=== PATIENT | female | born 1950 | race Caucasian/White ===

== ENCOUNTER 2020-11-15 13:22 | Observation (INO) | payer OTHER ==
--- OUTSIDE RECORDS SUMMARY | 2020-11-15 13:46 | XMS REPORT | Continuity of Care Document ---
:1950 Author Organization [facility] t Address [address] [place] [address] Care Team Providers Name Role Phone UNKNOWN Primary Care Physician Unavailable Krunal BURGOS Attending Clinician VISIT, [facility] MAMMO Attending Clinician Unavailable ELVI Attending Clinician Unavailable Rio Love Attending Clinician SUSAN Attending Clinician Unavailable SUSAN Admitting Clinician Unavailable Problems Condition Condition Condition Status Onset Resolution Last Treating Co mments Source Name Details Category Date Date Treatment Clinician Date Chronic Problem Active 2020-05-03 Alok stiven constipati 02-27 23:48:53 l on Chronic 00:00: Oskar (disorder) constipati 00 on (disorder) Active 02/27/2014 Problem 05/03/2020 Data migrated from [employer] on 04/28/15. [facility] Gastroesop Problem Active 2020-05-03 M emoria hageal 02-27 23:48:53 l reflux 00:00: [place] disease Gastroesop 00 (disorder) hageal reflux disease (disorder) Active 02/27/2014 Problem 05/03/2020 Data migrated from [employer] on 04/28/15. 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 [facility] Fatigue Problem Active 2020-05-03 Alok stiven (finding) 02-23 23:48:53 l Fatigue 00:00: [place] (finding) 00 Active 02/23/2013 Problem 05/03/2020 Data migrated from [employer] on 04/28/15. [facility] Group Incontinen Problem Active 2020-05-03 M emoria ce 02-23 23:48:53 l (finding) 00:00: Oskar Incontinen 00 ce (finding) Active 02/23/2013 Problem 05/03/2020 Data migrated from [employer] on 04/28/15. [facility] Menopausal Problem Active 2020-05-03 M emoria syndrome 02-23 23:48:53 l (disorder) 00:00: Efrain n Menopausal 00 syndrome (disorder) Active 02/23/2013 Problem 05/03/2020 Data migrated from [employer] on 04/28/15. [facility] Migraine Problem Active 2020-05-03 Mem oria (disorder) 08-25 23:48:53 l Migraine 00:00: Efrain n (disorder) 00 Active 08/25/2012 Problem 05/03/2020 Data migrated from [employer] on 04/28/15. [facility] Neck pain Problem Active 2020-05-03 Me moria (finding) 08-25 23:48:53 l Neck 00:00: [place] pain 00 (finding) Active 08/25/2012 Problem 05/03/2020 Data migrated from [employer] on 04/28/15. [facility] Numbness Problem Active 2020-05-03 Mem oria of upper 08-25 23:48:53 l limb Numbness 00:00: Efrain n (finding) of upper 00 limb (finding) Active 08/25/2012 Problem 05/03/2020 Data migrated from [employer] on 04/28/15. 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 [place] [facility] Incontinen Incontinen Problem Active U nivers ce of ce of ity of urine in urine in [place] female female Physici ans Depression Depression Problem Active U nivers ity of [place] Physici ans Fatigue Fatigue Problem Active [facility] of [place] [facility]ici ans Obesity Problem Active 2020-05-03 Alok stiven (disorder) 23:48:53 l Obesity [place] (disorder) Active Problem 05/03/2020 Medical Group Atrophic Problem Active 2020-05-03 Mem oria vaginitis 23:48:53 l (disorder) Atrophic He rmann vaginitis (disorder) Active Problem 05/03/2020 Medical Group Vaginitis Problem Active 2019-02-12 Me moria (disorder) 21:05:30 l Oskar Vaginitis (disorder) Active Problem 02/12/2019 Medical Group Postmenopa Problem 2018-2019-03-09 2019-03-09 Memoria usal 03-07 21:23:05 21:23:05 l atrophic 20:37: Oskar vaginitis Postmenopa 00 usal atrophic vaginitis 03/07/2019 03/09/2019 Medical Group Dysplasia Problem 2018-2019-03-09 2019-03-09 Memoria of vagina, 03-07 21:23:05 21:23:05 l unspecifie 20:37: Efrain clifton d Dysplasia 00 of vagina, unspecifie d 03/07/2019 03/09/2019 Medical Group Menopausal Problem 2018-2019-03-09 2019-03-09 Memoria and female 03-07 21:23:05 21:23:05 l climacteri 20:37: Efrain clifton c states Menopausal 00 and female climacteri c states 9 03/09/2019 Medical Group Unspecifie Problem 2016-2017-11-05 2017-11-05 Memoria d 2-04 01:00:48 01:00:48 l menopausal 16:54: Efrain clifton and Unspecifie 00 perimenopa d usal menopausal disorder and perimenopa usal disorder 7 11/05/2017 Medical Group Allergies, Adverse Reactions, Alerts Allergy Allergy Status Severity Reaction(s) Onset Inactive Treating Comm ents Source Name Type Date Date Clinician morphine Allergy Active Univers to drug ity of (finding [place] ) Physici ans codeine< codeine< Active Memori a sup>1</s sup>1</s l up> up> Oskar Social History Social Habit Start Date Stop Date Quantity Comments Source Social History 2019-03-07 2019-03-07 Amira zuñiga 19:58:03 19:58:03 Smoking Status Start Date Stop Date Source Never smoked tobacco (finding) U [facility] Physicians Medications Ordered Filled Start Stop Current Ordering Indication Dosage Frequency Signature Comments Components Source Medication Medication Date Date Medication? Clinician (SIG) Name Name chlorphenir 2016-11 Yes Memori a amine 4 mg 2-04 l oral tablet 16:41: Efrain n 00 Esomeprazol 2016-11 Yes Daily Memor ia e 2-04 l 16:31: Oskar 00 isosorbide 2016-11 Yes 30 mg = 1 Me moria mononitrate 2-04 tab, PO, l 30 mg oral 16:31: Daily Efrain n tablet, 00 extended release metoprolol 2016-11 Yes 25 mg = 1 Me moria tartrate 25 2-04 tab, PO, l mg oral 16:31: BID [place] tablet 00 Aspirin 81 Aspirin 81 Yes M.A. Uni vers TBEC TBEC ity of [place] Physici ans Atorvastati Atorvastati Yes M.A. U nivers n Calcium n Calcium ity o f 20 MG Oral 20 MG Oral [place] as Tablet Tablet Physici ans Lisinopril- Lisinopril- Yes M.A. U nivers hydroCHLORO hydroCHLORO i ty of thiazide thiazide [place] 20-12.5 MG 20-12.5 MG Phy sici Oral Tablet Oral Tablet a ns Isosorbide Isosorbide Yes M.A. Uni vers Mononitrate Mononitrate i ty of ER 30 MG ER 30 MG [place] Oral Tablet Oral Tablet P hysici Extended Extended ans Release 24 Release 24 Hour Hour Metoprolol Metoprolol Yes M.A. Uni vers Tartrate 25 Tartrate 25 i ty of MG Oral MG Oral [place] Tablet Tablet Physici ans Vital Signs Vital Name Observation Time Observation Value Comments Source Systolic blood 2020-05-01 125 mm[Hg] Location: [facility] 15:01:00 Position: [place] Physician s Sitting Diastolic blood 2020-05-01 81 mm[Hg] Location: [facility] 15:01:00 Position: [place] Physician s Sitting Body height 2020-05-01 64 [in_us] [facility] 15:01:00 [place] Physician s Weight 2020-05-01 200 [lb_av] [facility] 15:01:00 [place] Physician s Body mass index 2020-05-01 34.33 kg/m2 [place] o f (BMI) [Ratio] 15:01:00 [place] Physicia ns Body temperature 2020-05-01 98 [degF] Method: [facility] 15:01:00 Temporal [place] Physician s Heart Rate 2020-05-01 69 /min [facility] 15:01:00 [place] Physician s BMI Calculated 2019-03-07 [facility] 19:57:00 Weight 2019-03-07 [facility] 19:57:00 Height 2019-03-07 162.56 cm [facility] n 19:57:00 Systolic (mm Hg) 2019-03-07 [facility] He rmann 19:57:00 Diastolic (mm Hg) 2019-03-07 [facility] H [place] 19:57:00 Heart Rate 2019-03-07 [facility] [facility] 19:57:00 Height 2017-11-02 162.56 cm [facility] 16:21:00 BMI Calculated 2017-11-02 [facility] 16:21:00 Weight 2017-11-02 [facility] 16:21:00 Heart Rate 2017-11-02 [facility] [facility] 16:21:00 Systolic (mm Hg) 2017-11-02 [facility] [place] 16:21:00 Diastolic (mm Hg) 2017-11-02 [facility] H ermann 16:21:00 Procedures Procedure Date / Time Performing Clinician Source Performed [Q] THINPREP TIS AND 2020-05-01 00:00:00 [facility] HPV mRNA E6/E7 Physicians Mammogram 2019-03-07 05:00:00 [facility] Her [place] Colonoscopy 2014-08-24 05:00:00 [facility] genie [facility] Physicians [facility] - [facility] Hyste[facility] Knee joint operation [facility] rmann Encounters Start End Encounter Admission Attending Care Care Encounter Source Date/Time Date/Time Type Type Clinicians Facility Department ID 2020-10-10 2020-10-10 Office Krunal, [facility] [id number] 13:17:03 14:05:41 [place] [id number] [place] [id number] [place] [id number] Medical [address] Office Building 2020-05-01 2020-05-01 Outpatient VISIT, [facility] [id number] 14:00:00 23:59:59 NURSE STWC 12 MAMMO 2020-05-01 2020-05-01 Outpatient VISIT, [facility] [id number] 14:30:00 14:30:00 NURSE STWC 11 MAMMO 2020-05-01 2020-05-01 Appointmen ELVI, [facility] [id number] 13:45:00 13:45:00 t; Amber YODER [facility] y of ELVI, [place] as Kiran YODER. [facility] 2020-03-12 2020-03-12 Outpatient Sangalli, [facility] [id number] 15:00:00 15:00:00 Cristian Pate 10 2020-03-12 2020-03-12 Outpatient VISIT, [facility] [id number] 14:30:00 14:30:00 NURSE STWC 09 MAMMO 2019-03-08 2019-03-09 Outpatient [facility] [id number] 18:23:36 18:23:36 04 2019-03-07 2019-03-07 Outpatient VISIT, [facility] [id number] 15:30:00 23:59:59 NURSE STWC 05 MAMMO 2019-03-07 2019-03-07 Outpatient Sangalli, [facility] [id number] 14:30:00 23:59:59 Cristian Pate 2019-02-10 2019-02-10 Outpatient Sangalli, [facility] [id number] 09:00:00 09:00:00 Cristian Pate 2018-11-08 2018-11-08 Outpatient Sangalli, [facility] [id number] 10:00:00 10:00:00 Cristian Pate 2018-01-04 2018-01-04 Outpatient Sangalli, [facility] [id number] 09:45:00 09:45:00 Cristian Pate 2017-11-02 2017-11-02 Outpatient Sangalli, [facility] [id number] 10:00:00 23:59:59 Cristian Pate 03 2017-11-02 2017-11-02 Outpatient VISIT, [facility] [id number] 09:30:00 23:59:59 NURSE KAREN 02 MAMMO 2017-10-28 2017-10-28 Outpatient Kali SUSAN, [facility] [id number] [facility] 14:55:00 14:55:00 TISHA Results Test Description Test Time Test Comments Results Result Comments Source [QL] URINALYSIS, COMPLETE W/REFLEX TO CULTURE 2020-05-01 00: 00:00 Test Item Value Reference Range Interpretation Comme nts COLOR; Normal (test code = 5778-6) YELLOW YELLOW N APPEARANCE (test code = APPEARANCE) CLEAR CLEAR N SPECIFIC GRAVITY; Normal (test code = 2965-2) 1.008 1.001-1. 035 N PH; Normal (test code = 2756-5) 5.5 5.0-8.0 N GLUCOSE; Normal (test code = 1547-9) NEGATIVE NEGATIVE N BILIRUBIN; Normal (test code = 02426-4) NEGATIVE NEGATIVE N KETONES; Normal (test code = 82077-4) NEGATIVE NEGATIVE N OCCULT BLOOD; Abnormal (test code = 86612-4) TRACE NEGATIVE A PROTEIN; Normal (test code = 60970-8) NEGATIVE NEGATIVE N NITRITE (test code = NITRITE) NEGATIVE NEGATIVE N LEUKOCYTE ESTERASE (test code = LEUKOCYTE NEGATIVE NEGATIVE N ESTERASE) WBC; Normal (test code = 6690-2) NONE SEEN < OR = 5 N RBC; Normal (test code = 789-8) NONE SEEN < OR = 2 N SQUAMOUS EPITHELIAL CELLS; Normal (test code = NONE SEEN < OR = 5 N 41161-9) BACTERIA; Normal (test code = 630-4) NONE SEEN NONE SEEN N HYALINE CAST; Normal (test code = 27785-3) NONE SEEN NONE SEEN N REFLEXIVE URINE CULTURE (test code = REFLEXIVE NO CULTURE INDICATED URINE CULTURE) [facility] Physicians[Q] THINPREP TIS AND HPV mRNA [id number] 00:00:00 Test Item Value Reference Range Interpretation Comments CLINICAL See Comment N PREVIOUS HX OF ABN PAP INFORMATION: (test code = CLINICAL INFORMATION:) LMP: (test code = See Comment N NGF LMP:) PREV. PAP: (test See Comment N NONE GIVEN code = PREV. PAP:) PREV. BX: (test See Comment N NONE GIVEN code = PREV. BX:) SOURCE: (test See Comment N VAGINAL code = SOURCE:) STATEMENT OF See Comment N SATISFACTORY FO R ADEQUACY: (test EVALUATION code = STATEMENT OF ADEQUACY:) INTERPRETATION/RE See Comment N Negative f or SULT:; Normal intraepithelia l lesion (test code = or malignancy. 48556-8) COMMENT:; Normal See Comment N This Pap te st has been (test code = [place] [address]-9) [email or web address]. NEWS PRODUCER: See Comment N ABS, CT( CP)CT (test code = screening locat ion: NEWS PRODUCER: [facility] [id number] [place], [place] [id number] REVIEW See Comment N PAUL, CT(ASCP)CT NEWS PRODUCER: screening location: (test code = [facility] [address] [place], [place] [id number] NEWS PRODUCER: ) HPV mRNA E6/E7 Not Detected Not Detected N This test was performed (test code = HPV using the A PTIMA HPV mRNA E6/E7) Assay (vBrand.). This assay dete cts E6/E7 viral messenger RNA (mRNA) from 14h igh-risk HPV types (16,18,31,33,35 ,39,45,51 ,52,56,58,59,66 ,68). The analytical perf ormance characteristics ofthis assay have been determined by [facility] s. The modifications h ave not beencleared or approved by the FDA. Thi s assay hasbeen validat ed pursuant to the CLIA regulationsand is used for clinical pu rposes. See Comment (test See Comment EXPLANATOR Y NOTE: The code = See Pap is a screen ing test Comment) for cervical ca ncer. It is not a diagno stic test and is subject to false negative and fa lse positive result s. It is most reliable w hen a satisfactory sa mple, regularly obtai caryl, is submitted with relevant clinical findin gs and history, and wh en the Pap result is e valuated along with hist oric and current clinica l information. [facility] PhysiciansProthrombin Time and [id number] 09:16:02 Test Item Value Reference Range Interpretation Comments Prothrombin Time (test code = 12.0 seconds 9.8-13.4 Prothrombin Time) INR (test code = INR) 1.0 ratio 0.6-1.2 Partial Thromboplastin [id number] 09:16:02 Test Item Value Reference Range Interpretation Comments Partial Thromboplastin Time 31.20 seconds 24.39-37.25 (test code = Partial Thromboplastin Time) Comprehensive Metabolic [id number] 09:12:33 Test Item Value Reference Range Interpretation Comments Sodium Level (test code = Sodium 140.0 mmol/L 135.0-145.0 Level) Potassium Level (test code = 3.9 mmol/L 3.5-5.1 Potassium Level) Chloride Level (test code = 103 mmol/L 98-105 Chloride Level) CO2 (test code = CO2) 26 mmol/L 22-29 Anion Gap (test code = Anion 11 mmol/L 7-16 Gap) BUN (test code = BUN) 17.90 mg/dL 8.00-23.00 Creatinine Level (test code = 0.80 mg/dL 0.50-0.90 Creatinine Level) BUN/Creat Ratio (test code = 22 N BUN/Creat Ratio) Glucose Level (test code = 114 mg/dL 70-115 Glucose Level) Calcium Level (test code = 9.4 mg/dL 8.3-10.5 Calcium Level) Alk Phos (test code = Alk Phos) 75 U/L 35-104 Bilirubin Total (test code = 0.9 mg/dL 0.1-0.9 Bilirubin Total) Albumin Level (test code = 4.2 g/dL 3.5-5.2 Albumin Level) Protein Total (test code = 6.9 g/dL 6.4-8.3 Protein Total) ALT (test code = ALT) 17 U/L 1-33 AST (test code = AST) 15 U/L 1-32 Globulin (test code = Globulin) 2.7 g/dL 2.9-3.1 L A/G Ratio (test code = A/G 1.6 ratio N Ratio) Comprehensive Metabolic [id number] 09:12:33 Test Item Value Reference Range Interpretation Comments Sodium Level (test 140.0 mmol/L 135.0-145.0 code = Sodium Level) Potassium Level 3.9 mmol/L 3.5-5.1 (test code = Potassium Level) Chloride Level (test 103 mmol/L 98-105 code = Chloride Level) CO2 (test code = 26 mmol/L 22-29 CO2) Anion Gap (test code 11 mmol/L 7-16 = Anion Gap) BUN (test code = 17.90 mg/dL 8.00-23.00 BUN) Creatinine Level 0.80 mg/dL 0.50-0.90 (test code = Creatinine Level) BUN/Creat Ratio 22 N (test code = BUN/Creat Ratio) Glucose Level (test 114 mg/dL 70-115 code = Glucose Level) Calcium Level (test 9.4 mg/dL 8.3-10.5 code = Calcium Level) Alk Phos (test code 75 U/L 35-104 = Alk Phos) Bilirubin Total 0.9 mg/dL 0.1-0.9 (test code = Bilirubin Total) Albumin Level (test 4.2 g/dL 3.5-5.2 code = Albumin Level) Protein Total (test 6.9 g/dL 6.4-8.3 code = Protein Total) ALT (test code = 17 U/L 1-33 ALT) AST (test code = 15 U/L 1-32 AST) Globulin (test code 2.7 g/dL 2.9-3.1 L = Globulin) A/G Ratio (test code 1.6 ratio N = A/G Ratio) eGFR AA (test code = >60 N eGFR (e stimated eGFR AA) mL/min/1.73 m2 Glomerular Filtration Rate ) is an estimated va lue, calculated from the patient's serum creatinine usin g the MDRD equation. It is NOT the patient 's actual GFR. The eGFR provides a more clinically usef ul measure of kidn ey disease than se rum creatinine alone.This calculation mk es sex and race in to account, if the information is provided. If th e race is not provided, and t he patient is -Danielle n, multiply by 1.2 12. If sex is not provided, and t he patient is fema le, multiply by 0.7 42. Results for pat ients <18 years of ag e have not been validated by th e MDRD study and should be interpreted wit h caution. eGFR R esult Interpretation: eGFR > or = 60 is in the Normal RangeeGF R < 60 may mean kid derek diseaseeGFR < 1 5 may mean kidney failure Rang es recommended by the National Kidney Foundation, http://nkdep.ni h.gov Comprehensive Metabolic [id number] 09:12:33 Test Item Value Reference Range Interpretation Comments Sodium Level (test 140.0 mmol/L 135.0-145.0 code = Sodium Level) Potassium Level 3.9 mmol/L 3.5-5.1 (test code = Potassium Level) Chloride Level (test 103 mmol/L 98-105 code = Chloride Level) CO2 (test code = 26 mmol/L 22-29 CO2) Anion Gap (test code 11 mmol/L 7-16 = Anion Gap) BUN (test code = 17.90 mg/dL 8.00-23.00 BUN) Creatinine Level 0.80 mg/dL 0.50-0.90 (test code = Creatinine Level) BUN/Creat Ratio 22 N (test code = BUN/Creat Ratio) Glucose Level (test 114 mg/dL 70-115 code = Glucose Level) Calcium Level (test 9.4 mg/dL 8.3-10.5 code = Calcium Level) Alk Phos (test code 75 U/L 35-104 = Alk Phos) Bilirubin Total 0.9 mg/dL 0.1-0.9 (test code = Bilirubin Total) Albumin Level (test 4.2 g/dL 3.5-5.2 code = Albumin Level) Protein Total (test 6.9 g/dL 6.4-8.3 code = Protein Total) ALT (test code = 17 U/L 1-33 ALT) AST (test code = 15 U/L 1-32 AST) Globulin (test code 2.7 g/dL 2.9-3.1 L = Globulin) A/G Ratio (test code 1.6 ratio N = A/G Ratio) eGFR AA (test code = >60 N eGFR (e stimated eGFR AA) mL/min/1.73 m2 Glomerular Filtration Rate ) is an estimated va lue, calculated from the patient's serum creatinine usin g the MDRD equation. It is NOT the patient 's actual GFR. The eGFR provides a more clinically usef ul measure of kidn ey disease than se rum creatinine alone.This calculation mk es sex and race in to account, if the information is provided. If th e race is not provided, and t he patient is -Danielle n, multiply by 1.2 12. If sex is not provided, and t he patient is fema le, multiply by 0.7 42. Results for pat ients <18 years of ag e have not been validated by [facility] MDRD study and should be interpreted wit h caution. eGFR R esult Interpretation: eGFR > or = 60 is in the Normal RangeeGF R < 60 may mean kid derek diseaseeGFR < 1 5 may mean kidney failure Rang es recommended by the National Kidney Foundation, http://nkdep.ni h.gov eGFR Non-AA (test >60.00 N eGFR (jackie mated code = eGFR Non-AA) mL/min/1.73 m2 Glomer ular Filtration Rate ) is an estimated va lue, calculated from the patient's serum creatinine usin g the MDRD equation. It is NOT the patient 's actual GFR. The eGFR provides a more clinically usef ul measure of kidn ey disease than se rum creatinine alone.This calculation mk es sex and race in to account, if the information is provided. If th e race is not provided, and t he patient is -Danielle n, multiply by 1.2 12. If sex is not provided, and t he patient is fema le, multiply by 0.7 42. Results for pat ients <18 years of ag e have not been validated by [facility] MDRD study and should be interpreted wit h caution. eGFR R esult Interpretation: eGFR > or = 60 is in the Normal RangeeGF R < 60 may mean kid derek diseaseeGFR < 1 5 may mean kidney failure Rang es recommended by the National Kidney Foundation, http://nkdep.ni h.gov Complete Blood Count with [id number] 09:09:24 Test Item Value Reference Range Interpretation Comments WBC (test code = WBC) 6.6 x10 4.4-10.5 RBC (test code = RBC) 4.59 x10 3.75-5.20 Hgb (test code = Hgb) 13.6 g/dL 12.2-14.8 Hct (test code = Hct) 40.5 % 36.5-44.4 MCV (test code = MCV) 88.20 fL 80.00-100.00 MCHC (test code = 33.60 g/dL 32.00-37.50 MCHC) RDW CV (test code = 12.5 % 11.5-14.5 RDW CV) MCH (test code = MCH) 29.6 pg 27.0-32.5 Platelets (test code = 175.0 x10 140.0-440.0 Platelets) MPV (test code = MPV) 11.2 fL N Slide Review (test Auto Auto Result cr eated by code = Slide Review) GL_SJM_ SLIDE_REV_AUTO nRBC (test code = 0 N nRBC) NRBC Abs (test code = 0.00 x10 N NRBC Abs) IPF (test code = IPF) 0 % N Automated [id number] 09:09:24 Test Item Value Reference Range Interpretation Comments Neutro Auto (test code = Neutro 64.1 % 36.0-70.0 Auto) Lymph Auto (test code = Lymph Auto) 22.0 % 12.0-44.0 [place] Auto (test code = [place] Auto) 12.1 % 0.0-11.0 H Eos, Auto (test code = Eos, Auto) 1.1 % 0.0-7.0 Basophil Auto (test code = Basophil 0.5 % 0.0-2.0 Auto) Neutro Absolute (test code = Neutro 4.2 x10 1.6-7.4 Absolute) Lymph Absolute (test code = Lymph 1.44 x10 .50-4.60 Absolute) [place] Absolute (test code = [place] .79 x10 .00-1.20 Absolute) Eos Absolute (test code = Eos 0.07 x10 0.00-0.74 Absolute) Baso Absolute (test code = Baso 0.03 x10 0.00-0.21 Absolute) IG [id number] 09:09:24 Test Item Value Reference Range Interpretation Comments IG (test code = IG) 0.2 % 0.0-5.0 IG Abs (test code = IG Abs) 0 x10 N Thyroxine (T4)2017-10-29 23:18:00 Test Item Value Reference Range Interpretation Comments T4, Total (test code = TT4) 8.8 ug/dL 4.6-12.0 N
--- OUTSIDE RECORDS SUMMARY | 2020-11-15 13:46 | XMS REPORT | Summary of Care ---
:1950 Author Organization [address] [address] Care Team Providers Name Role Phone Eder Coyle MD Primary Care Provider [phone] Reason for Visit Reason Comments Follow-up (Routine) Status Reason Specialty Diagnoses / Procedures Referred By C earnest Referred To Contact Closed Urology Diagnoses Recurrent UTI Sayra Nguyen, PLATINUM AND PALLADIUM KETTLE TENDER Esperanza Hector MD Procedures CONSULT/REFERRAL UROLOGY [address] [facility] [address] [place], [place] [address] [address] Phone: [place] [address] Phone: Fax: Encounter Details Date Type Department Care Team Description 08/30/2020 Office Visit [facility] Urology- Cha Ortega MD Recurrent UTI (Primary Dx); [address] Urinary incontinence, unspecified type; [facility] [place] Urinary [address] [address] [facility] [address] [place] [address] Allergies Active Allergy Reactions Severity Noted Date Comments Codeine Unknown - See comments 06/03/2016 Meperidine Hcl Unknown - See comments 06/03/2016 documented as of this encounter (statuses as of 08/30/2020) Medications Medication Sig Dispensed Refills Start Date End Date Status atorvastatin (LIPITOR) Take 20 mg by 0 Active 20 mg tablet mouth at bedtime. lisinopril-hydrochloro Take 1 tablet by 0 Active thiazide mouth daily. (PRINZIDE,ZESTORETIC) 20-12.5 mg per tablet esomeprazole magnesium Take by mouth. 0 Active (NEXIUM 24HR) 22.3 mg CpDR aspirin 81 mg EC Take 325 mg by 0 Active tablet mouth daily. metoprolol tartrate 25 Take 25 mg by 0 Active mg tablet mouth 2 (two) times daily. isosorbide mononitrate Take 30 mg by 0 Active 30 mg 24 hr tablet mouth. fluticasone (FLONASE Use in each 0 Active ALLERGY RELIEF) 50 nostril daily. mcg/actuation nasal spray conjugated estrogens Insert 0.5 g into 30 g 2 10/05/2019 Active 0.625 mg/gram vaginal vagina creamIndications: SEE-INSTRUCTIONS. Recurrent UTI Place small amount to vaginal opening 2 x week Nitrofurantoin&Nit. Take 1 capsule by 10 capsule 0 08/01/2020 Active Macrocryst (MACROBID) mouth 2 (two) 100 mg times daily with capsuleIndications: meals. Recurrent UTI documented as of this encounter (statuses as of 08/30/2020) Active Problems No known active problemsdocumented as of this encounter (statuses as of 08/30/2020) Immunizations Name Administration Dates Next Due Influenza High Dose 12/23/2019, 07/31/2018 Pneumococcal 13 Conjugate, PCV13 (Prevnar 13) 10/12/2017 TDAP 03/01/2018 Zoster Vaccine Recombinant 07/31/2018 Zoster(Zostavax)(Shingles) 03/01/2018 documented as of this encounter Social History Tobacco Use Types Packs/Day Years Used Date Never Smoker Smokeless Tobacco: Never Used Alcohol Use Drinks/Week oz/Week Comments No 0 Standard drinks or equivalent 0.0 Sex Assigned at Date Recorded Not on file COVID-19 Exposure Response Date Recorded In the last month, have you been in contact with No / Unsure 08/29/2020 12:48 PM CDT someone who was confirmed or suspected to have Coronavirus / COVID-19? documented as of this encounter Last Filed Vital Signs Vital Sign Reading Time Taken Comments Blood Pressure 146/84 08/30/2020 2:13 PM CDT Pulse 84 08/30/2020 2:13 PM CDT Temperature 36.8 C (98.3 F) 08/30/2020 2:08 PM CDT Respiratory Rate 20 08/30/2020 2:08 PM CDT Oxygen Saturation 98% 08/30/2020 2:08 PM CDT Inhaled Oxygen Concentration - - Weight 86.6 kg (191 lb) 08/30/2020 2:08 PM CDT Height 172.7 cm (5' 8") 08/30/2020 2:08 PM CDT Body Mass Index 29.04 08/30/2020 2:08 PM CDT documented in this encounter Progress Notes Sayra Nguyen FNP - 08/30/2020 2:00 PM CDT Visit Type: Clinic Note / History and Physical Referred by: established Chief Complaint: follow up for UTI HPI Sera Min 70 year old female for follow up of UTI. Last UTI was 07/30/2020 culture returned as contaminated but was having burning and general malaise. Given Macrobid x 5 days. She usually has a UTIevery 1-2 months. She completed 8 weeks of Macrobid for suppression and did not have UTI for 6 months. Today is asymptomatic and feels well. She is taking cranberry pills. Only complaint today is urinary incontinence and urgency. Histories Past Medical History: Diagnosis Date Esophageal reflux Hyperlipidemia Hypertension Seizures Past Surgical History: Procedure Laterality Date ESOPHAGOGASTRODUODENOSCOPY N/A 11/18/2017 Surgeon: Vashti Ibrahim MD; [place] [facility] [place] INSERT/PLACE HEART CATHETER 2016 HYSTERECTOMY full KNEE ARTHROSCOPY Bilateral 1996, 2002 [place] PATIENT HAS A CORONARY ARTERY STENT 08/29/2016 Family History Problem Relation Age of Onset Heart Mother Coronary Heart Disease Mother Coronary Heart Disease Father Social History Socioeconomic History Marital status: Single Spouse name: Not on file Number of children: Not on file Years of education: Not on file Highest education level: Not on file Occupational History Not on file Social Needs Financial resource strain: Not on file Food insecurity Worry: Not on file Inability: Not on file Transportation needs Medical: Not on file Non-medical: Not on file Tobacco Use Smoking status: Never Smoker Smokeless tobacco: Never Used Substance and Sexual Activity Alcohol use: No Alcohol/week: 0.0 standard drinks Drug use: No Sexual activity: Not on file Lifestyle Physical activity Days per week: Not on file Minutes per session: Not on file Stress: Not on file Relationships Social connections Talks on phone: Not on file Gets together: Not on file Attends caodaism service: Not on file Active member of club or organization: Not on file Attends meetings of clubs or organizations: Not on file Relationship status: Not on file Intimate partner violence Fear of current or ex partner: Not on file Emotionally abused: Not on file Physically abused: Not on file Forced sexual activity: Not on file Other Topics Concern Not on file Social History Narrative Not on file Review of Systems Constitutional: Positive for fatigue and unexpected weight change. Respiratory: Negative. Cardiovascular: Positive for leg swelling. Genitourinary: Positive for bladder incontinence, urgency and frequency. Musculoskeletal: Positive for arthralgias, gait problem and neck pain. Psychiatric/Behavioral: Negative. Physical Exam Constitutional: Appearance: Normal appearance. She is normal weight. Musculoskeletal: Normal range of motion. Skin: General: Skin is warm and dry. Neurological: General: No focal deficit present. Mental Status: She is alert and oriented to person, place, and time. Mental status is at baseline. Psychiatric: Mood and Affect: Mood normal. Behavior: Behavior normal. Thought Content: Thought content normal. Judgment: Judgment normal. BP (!) 146/84 (BP Location: Left arm, Patient Position: Sitting, BP CUFF SIZE: Adult Large) | Pulse84 | Temp 36.8 C (98.3 F) (Temporal Artery) | Resp 20 | Ht 5' 8" (1.727 m) | Wt 191 lb (86.6kg) | SpO2 98% | BMI 29.04 kg/m Laboratory Results for SERA MIN ( ) as of 08/30/2020 14:34 Ref. Range 08/30/2020 14:14 POCT PH U Latest Ref Range: 5 - 8 mg/dl 5.5 POCT U SP GRAV Latest Ref Range: 1.005 - 1.025 mg/dl 1.010 POCT U GLU Latest Ref Range: Negative - Negative Negative POCT U BLD Latest Ref Range: Negative - Negative Trace POCT U KETONE Latest Ref Range: Negative - Negative Negative POCT U PROT Latest Ref Range: Negative - Negative Negative POCT U UROBILI Latest Ref Range: 0.2 - 1 mg/dl 0.2 POCT U BILI Latest Ref Range: Negative - Negative Negtaive POCT U NIT Latest Ref Range: Negative - Negative Negative POCT U LEUK EST Latest Ref Range: Negative - Negative Negative POCT U COLOR Unknown yellow POCT U APPEAR Unknown clear Radiology No new Radiology Procedure Note PVR = 11 ml Assessment/Plan Sera Min 70 year old female with recurrent UTI and urinary incontinence and urgency. Continue cranberry pills Urine culture - will call for orders Refer to Dr. Hector RTC PRN Surgical Intervention Not applicable. This visit did not involve counseling and coordination that comprised more than 50% of the visit time. The patient was seen and discussed with Dr. Ortega. Sayra Nguyen NP-C Dyana Ying RN - 08/30/2020 2:00 PM CDTBarvind Min is a 70 year old female comes to clinic independent in ambulation for follow up recurrent uti. Pt comes alone . Pt in NAD w/ pain reported 0/10. Pt preferred language is Icelandic. Pt. denies fall in last 12 months. Allergies and medications reviewed and updated. Per order Post void residual by bladder scan = 11 ml, results reported to provider. documented in this encounter Plan of Treatment Date Type Specialty Care Team Description 09/06/2020 Office Visit Urology Esperanza Hector M D [address] [facility] [address] [place], [place] [address] 11/07/2020 Office Visit Urology Sayra Nguyen FNP [address] [facility] [address] [place], [place] [address] [phone] Health Maintenance Due Date Last Done Comments HEPATITIS C (HCV) SCREEN 1950 COLON CANCER SCREENING ANNUAL FIT/FOBT 2001 COLON CANCER SCREENING FIT DNA EVERY 3 2001 YEARS COLON CANCER SCREENING SIGMOIDOSCOPY EVERY 2001 5 YEARS Medicare Wellness Visit 2016 Zoster Recombinant Vaccine (SHINGRIX) (3 09/25/201807/31/2 018, 03/01/2018 of 3) PNEUMOCOCCAL VACCINES 65+ (2 of 2 - 10/12/2018 10/12/2017 PPSV23) Breast Cancer Screening (MAMMOGRAM) 02/29/2020 02/28/2019 INFLUENZA VACCINE (#1) 2020 12/23/2019, 07/31/2018 Depression Screening 08/30/2021 08/30/2020 Osteoporosis Screening 11/30/2022 11/30/2012 COLONOSCOPY 08/24/2024 08/24/2014 Colorectal Cancer Screening 08/24/2024 DTaP,Tdap,and Td Vaccines (2 - Td) 03/01/2028 03/01/2018 documented as of this encounter Procedures Procedure Name Priority Date/Time Associated Comments Diagnosis POCT URINALYSIS AUTO Routine 08/30/2020 2:14 PM Recurrent UTI Results for this CDT procedure are i n the results section. documented in this encounter Results POCT URINALYSIS, INSTRUMENT (08/30/2020 2:14 PM CDT) Pathologist Sig nature POCT U SP GRAV 1.010 1.005 - 1.025 mg/dl POCT PH U 5.5 5 - 8 mg/dl POCT U LEUK EST Negative Negative - Negative POCT U NIT Negative Negative - Negative POCT U PROT Negative Negative - Negative POCT U GLU Negative Negative - Negative POCT U KETONE Negative Negative - Negative POCT U UROBILI 0.2 0.2 - 1 mg/dl POCT U BILI Negtaive Negative - Negative POCT U BLD Trace Negative - Negative POCT U COLOR yellow POCT U APPEAR clear Specimen Urine - URINE, CLEAN CATCH documented in this encounter Visit Diagnoses Diagnosis Recurrent UTI - Primary Urinary tract infection, site not specif ied Urinary incontinence, unspecified type Urinary urgency Urgency of urination documented in this encounter Additional Health Concerns Infection Onset Date Last Indicated Resolved Time Contact - ESBL 07/29/2019 07/29/2019 documented as of this encounter Insurance Payer Benefit Plan / Subscriber ID Effective Phone Address T ype Group Dates MEDICARE MEDICARE PART [id number] 2016-Prese [phone] Medicare A & B nt [id number] [place] [phone] MULTIPLAN MULTIPLAN [id number] 2016-Prese PPO GENERIC nt [facility] [id number] 2016-Flynn Smith PO PLAN PLAN nt [phone] (Home) [phone] [place] [address] documented as of this encounter
--- OUTSIDE RECORDS SUMMARY | 2020-11-15 13:46 | XMS REPORT | Continuity of Care Document ---
:1950 Author Organization [facility] Care Team Providers Name Role Phone [facility] Unavailable Un available Problems Problem Status Onset Classification Date Comments Sourc e Date Reported Unspecified urinary 03/07/20 03/09/2019 incontinence [facility] Other fatigue 03/07/20 03/09/2019 MH [facility] Postmenopausal 03/07/20 03/09/2019 MH atrophic vaginitis 19 M edical Group Dysplasia of 03/07/20 03/09/2019 MH vagina, unspecified 19 [facility] Menopausal and 03/07/20 03/09/2019 female climacteric 19 M edical states Group Unspecified 11/02/20 11/05/2017 MH menopausal and 17 Medic al perimenopausal Group disorder Chronic Active 02/28/20 Problem 05/03/2020 Data constipation 14 migrated Medical (disorder) from [facility] [employer] on 04/28/15. Gastroesophageal Active 02/28/20 Problem 05/03/2020 Data reflux disease 14 migrated Medic al (disorder) from [employer] on 04/28/15. Dysplasia of vagina Active 02/24/20 Problem 05/03/2020 Data MH (disorder) 13 migrated Medical from [employer] on 04/28/15. Fatigue (finding) Active 02/24/20 Problem 05/03/2020 Data M H 13 migrated Medical from [employer] on 04/28/15. Incontinence Active 02/24/20 Problem 05/03/2020 Data MH (finding) 13 migrated Medical from [employer] on 04/28/15. Menopausal syndrome Active 02/24/20 Problem 05/03/2020 Data MH (disorder) 13 migrated Medical from [employer] on 04/28/15. Migraine (disorder) Active 08/25/20 Problem 05/03/2020 Data 12 migrated Medical from [employer] on 04/28/15. Neck pain (finding) Active 08/25/20 Problem 05/03/2020 Data 12 migrated Medical from [employer] on 04/28/15. Numbness of upper Active 08/25/20 Problem 05/03/2020 Data M H limb (finding) 12 migrated Medic al from [employer] on 04/28/15. Obesity (disorder) Active Problem 05/03/2020 [facility] Atrophic vaginitis Active Problem 05/03/2020 MH (disorder) Medical Group Vaginitis Active Problem 02/12/2019 MH (disorder) Medical Group Medications Medication Details Route Status Patient Ordering Order Source Instructions Provider Date chlorpheniramine 4 Active MH mg oral tablet 017 Medical Group Esomeprazole Daily Active MH 017 Medical Group isosorbide 30 mg = 1 Active MH mononitrate 30 mg tab, PO, 017 Medic al oral tablet, Daily Group extended release metoprolol tartrate 25 mg = 1 Active MH 25 mg oral tablet tab, PO, 017 Medic al BID Group Allergies, Adverse Reactions, Alerts Substance Category Reaction Severity Reaction Status Date Comments S ource type Reported codeine<sup Assertion Drug Active Data MH >1</sup> allergy migrated Medica l from [employer] on 01/30/16. Originally documented as CODEINE. Immunizations No Data Provided for This Section Results No Data Provided for This Section Pathology Reports No Data Provided for This Section Diagnostic Reports Report Value Date Source Breast Mammo Scrn ROBERT 05/01/2020 [facility] incl CAD MA BILATERAL DIGITAL SCREENING MAMMOGRAM WITH CAD: 05/01/2020 CLINICAL: Screening/Screening. Current study was evaluated with a [employer] Information Clerk d Detection (CAD) system. COMPARISON:Comparison is mad e to exams dated: 03/07/2019 mammogram, 11/02/2017 mammogram, 10/29/2016 mammogram, and 03/01/2015 mammogram - [facility]. TECHNIQUE: Mammographic view s were obtained using digital acquisition. Current study was also evaluated with a Computer Aided Detection (CAD) system. FINDINGS: There are scattered fibroglandular densities in both breasts. There are benign calcifications in both breasts. No significant masses, calci fications, or other findings are seen in either breast. There has been no significant interval change. IMPRESSION: BENIGN RECOMMENDATION:There is no m ammographic evidence of malignancy. A 1 year screening mammogram is recommended.(05/02/2021) This exam was interpreted at [id number] for [facility]. Donna Regalado M.D. ap/penrad:05/01/2020 15:52:16 Geospatial Imagery Intelligence Analyst(s): Kira Hummel, [facility] letter sent: BI-RADS 1/2 Mammogram BI-RADS: 2 Benign Breast Mammo Scrn ROBERT 03/07/2019 [facility] MA BILATERAL DIGITAL SCREENING MAMMOGRAM WITH CAD: 03/07/2019 CLINICAL: Screening/Screening. Current study was evaluated with a [employer] Information Clerk d Detection (CAD) system. COMPARISON:Comparison is mad e to exams dated: 11/02/2017 mammogram, 10/29/2016 mammogram, 03/01/2015 mammogram, and 02/23/2014 mammogram - [facility]. TECHNIQUE: Mammographic view s were obtained using digital acquisition. Current study was also evaluated with a Computer Aided Detection (CAD) system. FINDINGS: There are scattered fibroglandular densities in both breasts. There are benign calcifications in both breasts. No significant masses, calci fications, or other findings are seen in either breast. There has been no significant interval change. IMPRESSION: BENIGN RECOMMENDATION:There is no m ammographic evidence of malignancy. A 1 year screening mammogram is recommended.(03/07/2020) This exam was interpreted at [id number] for [facility]. Carla Briseno M.D. jt/penrad:03/07/2019 15:29:05 Geospatial Imagery Intelligence Analyst(s): Kira Hummel, [facility] letter sent: BI-RADS 1/2 Mammogram BI-RADS: 2 Benign Breast Mammo Scrn ROBERT 11/02/2017 [facility] CAD MA CLINICAL: /Screening. Current study was evaluated with a [employer] Information Clerk d Detection (CAD) system. COMPARISON:Comparison is mad e to exams dated: 10/29/2016 mammogram, 03/01/2015 mammogram, and 02/23/2014 mammogram - [facility]. TECHNIQUE: Mammographic view s were obtained using digital acquisition. Current study was also evaluated with a Computer Aided Detection (CAD) system. FINDINGS: There are scattered fibroglandular densities in both breasts. Benign appearing densities are noted in the righ t breast. There are benign calcifications in both breasts. No significant masses, calci fications, or other findings are seen in either breast. There has been no significant interval change. IMPRESSION: BENIGN RECOMMENDATION:There is no m ammographic evidence of malignancy. A 1 year screening mammogram is recommended.(11/03/2018) This exam was interpreted at [id number] for [facility]. Carla Briseno M.D. jt/penrad:11/02/2017 14:30:22 Geospatial Imagery Intelligence Analyst(s): Jeremy Maguire, [facility] letter sent: BI-RADS 1/2 Mammogram BI-RADS: 2 Benign Digital Mammo - DIGITAL MAMMO SCREENING ROBERT MA 10/29/2016 [facility] Screening Robert MA BILATERAL DIGITAL SCREENING MAMMOGRAM WITH CAD: 10/29/2016 CLINICAL: Screening. Current study was evaluated with a [employer] Information Clerk d Detection (CAD) system. Comparison is made to exam d ated: 03/01/2015 mammogram - [facility]. There are scattered fibroglandular densities in both breasts. There are benign calcifications in both breasts. No significant masses, calci fications, or other findings are seen in either breast. There has been no significant interval change. IMPRESSION: BENIGN There is no mammographic deysi dence of malignancy. A 1 year screening mammogram is recommended. Marin Heard M.D jscott/penrad:11/06/2016 11:00:02 Geospatial Imagery Intelligence Analyst: Mahnaz Hummel, [facility] This exam was dictated and i nterpreted by [id number] for [facility]. letter sent: Normal exam Mammogram BI-RADS: 2 Benign Consultation Notes No Data Provided for This Section Discharge Summaries No Data Provided for This Section History and Physicals No Data Provided for This Section Vital Signs Vital Sign Value Date Comments Source BMI Calculated 33.2 03/07/2019 [facility] Weight 87.727 03/07/2019 [facility] Gr[facility] p Height 162.56 cm 03/07/2019 [facility] p Systolic (mm Hg) 109 03/07/2019 Medical Group Diastolic (mm Hg) 72 03/07/2019 Medical Group Heart Rate 81 03/07/2019 [facility] Height 162.56 cm 11/02/2017 [facility] Gr[facility] p BMI Calculated 30.96 11/02/2017 Medical Gr oup Weight 81.818 11/02/2017 Medical Gr[facility] p Heart Rate 68 11/02/2017 Medical Gr[facility] p Systolic (mm Hg) 142 11/02/2017 Medical Group Diastolic (mm Hg) 79 11/02/2017 Medical Group Encounters Location Location Encounter Encounter Reason Attending ADM PA Stat us Source Details Type Number For Provider Date Date Visit Outpatient [id number] MAMMO 10/29 Active [facility] VISIT /2015 [facility] [id number] CRISTIAN 10/29 Active [facility] SANGALLI /2015 [facility] [id number] MAMMO 11/02 [facility] VISIT /2016 [facility] [id number] CRISTIAN 11/02 [facility] SANGALLI [facility] Outpatient [id number] NURSE 11/02 11/03 Radiology VISIT /2016 [facility] Outpatient [id number] Cristian 11/02 11/03 LIGHT RAIL TRAIN OPERATOR [facility] /2016 [facility] Ambulatory [id number] Cristian 01/04 01/04 LIGHT RAIL TRAIN OPERATOR Pre-Reg [facility] /2017 [facility] Outpatient [id number] MAMMO 11/08 Active [facility] VISIT /2017 [facility] Ambulatory [id number] Cristian 11/08 11/08 LIGHT RAIL TRAIN OPERATOR Pre-Reg [place] /2017 [facility] Outpatient [id number] CRISTIAN 02/10 Active [facility] SANGALLI [facility] Ambulatory [id number] Cristian 02/10 02/10 LIGHT RAIL TRAIN OPERATOR Pre-Reg [facility] /2018 [facility] Outpatient [id number] Cristian 03/07 [facility] [id number] NURSE 03/07 Active [facility] VISIT /2018 [facility] Outpatient [id number] Cristian 03/07 03/08 LIGHT RAIL TRAIN OPERATOR [place] /2018 [facility] Outpatient [id number] NURSE 03/07 03/08 Radiology VISIT /2018 [facility] Between [id number] 03/08 03/09 LIGHT RAIL TRAIN OPERATOR Visit /2018 [facility] Outpatient [id number] NURSE 03/12 [facility] [id number] NURSE 03/12 [facility] [id number] Cristian 03/12 [facility]2019 [facility] Ambulatory [id number] NURSE 03/12 03/12 Radiology Pre-Reg VISIT /2019 [facility] Ambulatory [id number] Cristian 03/12 03/12 office support assistant Pre-Reg [place] /2019 [facility] Outpatient [id number] NURSE 05/01 [facility]2019 [facility] Outpatient [id number] NURSE 05/01 05/02 Radiology VISIT /2019 [facility] Ambulatory [id number] NURSE 05/01 05/01 Radiology Pre-Reg VISIT /2019 [facility] Procedures Procedure Code Date Perfomer Comments Source Mammogram [id number] 03/07/2019 [facility] Colonoscopy [id number] 08/24/2014 Medical Group BSO - Bilateral [id number] [facility] salpingo-oophorecto Group my Hysterectomy [id number] Medical Group Knee joint [id number] Medical operation Group Assessment and Plan No Data Provided for This Section Plan of Care No Data Provided for This Section Social History Social History Date Source Social History TypeResponse 03/07/2019 [facility] Alcohol Never Exercise Exercise duration: 60. Sexual Self Breast Exam No. Substance Abuse Use: None. Smoking Status Never smoker; Exposure to Tobacco Smoke None; Cigarette Smoking Last 365 Days No; Reg Smoking Cessation Counseling No entered on: 03/07/19 Family History No Data Provided for This Section Advance Directives No Data Provided for This Section Functional Status No Data Provided for This Section
--- OUTSIDE RECORDS SUMMARY | 2020-11-15 13:47 | XMS REPORT | Summary of Care ---
:1950 Author Organization [address] [address] Care Team Providers Name Role Phone Eder Coyle MD Primary Care Provider [phone] Reason for Visit Reason Comments Follow-up (Routine) Status Reason Specialty Diagnoses / Procedures Referred By C earnest Referred To Contact Closed Urology Diagnoses Recurrent UTI Sayra Nguyen, COLLEGE SPORTS COACH Esperanza Hector MD Procedures CONSULT/REFERRAL UROLOGY [address] [facility] [address] [place], [place] [address] [address] Phone: [place] [address] Phone: Fax: Encounter Details Date Type Department Care Team Description 08/30/2020 Office Visit [facility] Urology- Cha Ortega MD Recurrent UTI (Primary Dx); [address] Urinary incontinence, unspecified type; [facility] [place], [place] Urinary [place]g [address] [address] [facility] [address] [place] [address] Allergies Active Allergy Reactions Severity [...] CDT documented in this encounter Progress Notes Leonel Ortega MD - 08/30/2020 2:00 PM CDTI saw and examined the patient on 08/30/2020 and agree with the MLP's note as written by EDILMA Fan.I actively participated in the decision-making process. Please see the MLP's note for additional details. Sayra Jaquez FNP - 08/30/2020 2:00 PM CDT Visit [...] N/A 11/18/2017 Surgeon: Vashti Ibrahim MD; Location: [facility] [place] HB INSERT/PLACE HEART CATHETER 2016 HYSTERECTOMY full KNEE ARTHROSCOPY Bilateral 1996, 2002 [place] PATIENT HAS A CORONARY ARTERY STENT 08/29/2016 [...] file Gets together: Not on file Attends methodist service: Not on file Active member of [...] Note PVR = 11 ml Assessment/Plan Sera Mechelle 70 year old female with recurrent UTI [...] pain reported 0/10. Pt preferred language is Paraguayan. Pt. denies fall in last 12 months. Allergies and medications reviewed and updated. Per order Post void residual by bladder scan = 11 ml, results reported to provider. documented in this encounter Plan of Treatment Date Type Specialty Care Team Description 09/06/2020 Office Visit Urology Esperanza Hector M D 2280 [facility] [address] [place] [address] 11/07/2020 Office Visit Urology Sayra Nguyen FNP [address] [facility] [address] [place], [place] [address] Health Maintenance Due Date Last Done Comments HEPATITIS C (HCV) SCREEN 1950 COLON CANCER SCREENING ANNUAL FIT/FOBT 2001 COLON CANCER SCREENING FIT DNA EVERY 3 2001 YEARS COLON CANCER SCREENING SIGMOIDOSCOPY EVERY 2001 5 YEARS Medicare Wellness Visit 2016 Zoster Recombinant Vaccine (SHINGRIX) (3 09/25/2018 018, 03/01/2018 of 3) PNEUMOCOCCAL VACCINES 65+ [...] T ype Group Dates MEDICARE MEDICARE PART [id number] 2016-Flynn [phone] Medicare A & B nt [id number] CHUCKIE DUBON [phone] MULTIPLAN MULTIPLAN [id number] 2016-Flynn PPO GENERIC nt [facility] ClearFlow [id number] 2016-Preschristina P PO PLAN PLAN nt Po stephani x [phone] (Home) [phone] [place] [address] documented as of this encounter
--- OUTSIDE RECORDS SUMMARY | 2020-11-15 13:47 | XMS REPORT | Summary of Care ---
:1950 Author Organization [facility] Address [address] [place] [address] Care Team Providers Name Role Phone Eder Coyle MD Primary Care Provider [phone] Reason for Visit Reason Comments URINARY TRACT INFECTION 5 x with in a year Encounter Details Date Type Department Care Team Description 09/06/2020 Office Visit [facility] Urology- Arnoldo Hector MD OAB (overactive [place] [address] [facility] bladder) (Primary Dx) [address] [address] [facility] [address] [place] [address] [id number] Allergies Active Allergy Reactions Severity Noted Date Comments Codeine Unknown - See comments 06/03/2016 Meperidine Hcl Unknown - See comments 06/03/2016 documented as of this encounter (statuses as of 09/06/2020) Medications Medication Sig Dispensed Refills Start Date End Date Status atorvastatin Take 20 mg 0 Active (LIPITOR) 20 mg by mouth at tablet bedtime. lisinopril-hydroch Take 1 0 A ctive lorothiazide tablet by (PRINZIDE,ZESTORET mouth daily. IC) 20-12.5 mg per tablet esomeprazole Take by 0 Active magnesium (NEXIUM mouth. 24HR) 22.3 mg CpDR aspirin 81 mg EC Take 325 mg 0 A ctive tablet by mouth daily. metoprolol Take 25 mg 0 Active tartrate 25 mg by mouth 2 tablet (two) times daily. isosorbide Take 30 mg 0 Active mononitrate 30 mg by mouth. 24 hr tablet fluticasone Use in each 0 Activ e (FLONASE ALLERGY nostril RELIEF) 50 daily. mcg/actuation nasal spray conjugated Insert 0.5 g 30 g 2 10/05/2019 Activ e estrogens 0.625 into vagina mg/gram vaginal SEE-INSTRUCT creamIndications: IONS. Place Recurrent UTI small amount to vaginal opening 2 x week trospium 20 mg Take 1 30 tablet 0 09/06/2020 Acti ve tabletIndications: tablet by 0 OAB (overactive mouth daily bladder) for 30 days. Nitrofurantoin&Nit Take 1 10 capsule 0 08/01/2020 Discontinued . Macrocryst capsule by 0 (Thera py (MACROBID) 100 mg mouth 2 co mpleted) capsuleIndications (two) times : Recurrent UTI daily with meals. documented as of this encounter (statuses as of 09/06/2020) Active Problems No known active problemsdocumented as of this encounter (statuses as of 09/06/2020) Immunizations Name Administration Dates Next Due Influenza [...] been in contact with No / Unsure 09/05/2020 10:41 AM CDT someone who was confirmed or suspected to have Coronavirus / COVID-19? documented as of this encounter Last Filed Vital Signs Vital Sign Reading Time Taken Comments Blood Pressure 145/78 09/06/2020 1:47 PM Patient is a solomon CDT Pulse 71 09/06/2020 1:47 PM CDT Temperature - - Respiratory Rate 18 09/06/2020 1:47 PM CDT Oxygen Saturation - - Inhaled Oxygen Concentration - - Weight 95.1 kg (209 lb 9.6 09/06/2020 1:47 PM oz) CDT Height 172.7 cm (5' 8") 09/06/2020 1:47 PM CDT Body Mass Index 31.87 09/06/2020 1:47 PM CDT documented in this encounter Progress Notes Esperanza Hector MD - 09/06/2020 2:00 PM CDT Esperanza Hector MD Beam Sealer of Urology Female Urology, Voiding Dysfunction and Pelvic Reconstruction [facility] Division of Urology Referring Provider: Dr. Ortega REASON FOR REFERRAL/CHIEF COMPLAINT: Hx of recurrent UTI Urgency and urgency UI HISTORY OF PRESENT ILLNESS: This is a 70 year old female who was referred to the urology clinic for evaluation of OAB symptoms. The patient is with hx of hysterectomy and cystocele repair back in 1999. No mesh used at the surgery per patient. She has hx of recurrent symptomatic UTI. No doing well and controlled. Has increased urinary frequency 1-2 hrs, nocturia x 2, moderate urgency and urgency urinary incontinence. Has used 2-3 pads per days. Drinks 4-5 bottles of water, coffee x 1, no soda or wine, or smoking. Has constipation on laxative. Denies any stroke, back problem. She is not sexually active. PAST MEDICAL HISTORY: Past Medical History: Diagnosis Date Esophageal reflux Hyperlipidemia Hypertension Seizures PAST SURGICAL HISTORY: Past Surgical History: Procedure Laterality Date ESOPHAGOGASTRODUODENOSCOPY N/A 11/18/2017 Surgeon: Vashti Ibrahim MD; Location: [facility] [place] HB INSERT/PLACE HEART CATHETER 2016 HYSTERECTOMY full KNEE ARTHROSCOPY Bilateral 1996, 2002 [place] PATIENT HAS A CORONARY ARTERY STENT 08/29/2016 MEDICATIONS: Current Outpatient Medications: trospium 20 mg tablet, Take 1 tablet by mouth daily for 30 days., Disp: 30 tablet, Rfl: 0 conjugated estrogens 0.625 mg/gram vaginal cream, Insert 0.5 g into vagina SEE-INSTRUCTIONS. Place small amount to vaginal opening 2 x week, Disp: 30 g, Rfl: 2 fluticasone (FLONASE ALLERGY RELIEF) 50 mcg/actuation nasal spray, Use in each nostril daily.,Disp: , Rfl: isosorbide mononitrate 30 mg 24 hr tablet, Take 30 mg by mouth., Disp: , Rfl: metoprolol tartrate 25 mg tablet, Take 25 mg by mouth 2 (two) times daily., Disp: , Rfl: aspirin 81 mg EC tablet, Take 325 mg by mouth daily., Disp: , Rfl: atorvastatin (LIPITOR) 20 mg tablet, Take 20 mg by mouth at bedtime., Disp: , Rfl: esomeprazole magnesium (NEXIUM 24HR) 22.3 mg CpDR, Take by mouth., Disp: , Rfl: lisinopril-hydrochlorothiazide (PRINZIDE,ZESTORETIC) 20-12.5 mg per tablet, Take 1 tablet by mouth daily., Disp: , Rfl: ALLERGIES: Allergies Allergen Reactions Codeine Unknown - See comments Demerol [Meperidine Hcl] Unknown - See comments FAMILY HISTORY: Family History Problem Relation Age of Onset Heart Mother Coronary Heart Disease Mother Coronary Heart Disease Father SOCIAL HISTORY: Social History Socioeconomic History Marital status: Single [...] file Gets together: Not on file Attends mandaen service: Not on file Active member of [...] file Social History Narrative Not on file REVIEW OF SYSTEMS: General: Denies chills, fatigue, fever, hot flashes or weight changes ENT: Denies headaches, nasal congestion, nasal discharge or sore throat Hematological: denies bleeding problems or blood clots Endocrine: denies hot flashes or temperature intolerance Respiratory: denies cough, shortness of breath, or wheezing Cardiovascular: denies chest pain or dyspnea on exertion Gastrointestinal: denies abdominal pain, constipation, diarrhea or nausea/vomiting Genito-Urinary: per HPI Musculoskeletal: denies joint pain, joint stiffness, joint swelling, muscle pain or muscular weakness Neurological: denies dizziness, headaches, numbness/tingling or visual changes Skin: denies rashes, moles or other lesions. PHYSICAL EXAMINATION: BP (!) 145/78 | Pulse 71 | Resp 18 | Ht 5' 8" (1.727 m) | Wt 209 lb 9.6 oz (95.1 kg) | BMI 31.87 kg/m General: Well Developed. No apparent distress. Eyes: Normal conjunctiva. ENT: No external lesions. Neck is supple. No masses. Resp: Normal respiratory effort. CV: No LE edema. GI: Abdomen soft nontender nondistended. Musculoskeletal: Normal gait and station. Normal range of motion. Skin: No rash, lesions, ulcers. Psych: Normal judgement/ insight. Awake and oriented x 3. . LABS: Reviewed PVR low ASSESSMENT AND PLAN: The patient is a 70 year old female who was referred to the urology clinic for evaluation of urgency and urgency urinary incontinence Hx of recurrent UTI Urgency and urgency UI Today we discussed in detail the patient's symptoms and diagnosis. We discussed treatment options for OAB which include: 1. First-line therapy including fluid and behavioral modifications. We discussed bladder retraining as well as the option of doing pelvic floor physical therapy to enhance first line treatment. 2. Medical therapy which may include anticholinergic or beta 3 agonist medications, with the addition of local hormone replacement. 3. Third line therapy including posterior tibial nerve stimulation, sacral neuromodulation, and intra-detrusor injection of onabotulinumtoxinA. The patient likes to start oral meds, offered Trospium 20 mg once a day and reviewed the side effects. Potential side effects reviewed include headaches, dry eyes, dry mouth, constipation, and orthostatic hypotension, among others. If the medication is tolerated, I encouraged the patient to try the medication for 1 month. I have asked the patient to return to clinic at that time for follow up. Okay to continue the estrogen cream Given patient education materials for SNM vs Botox and she looks interested in SNM. My diagnostic impression and treatment plans were discussed at length with the patient. All side effects as well as drug-drug interactions and risks discussed at length. Call or return to clinic prn if these symptoms worsen or fail to improve as anticipated At this conclusion of this encounter all of the patient's (and family) questions were answered to their satisfaction, they were encouraged to contact our office at any time if there were any further questions or issues, and we will follow up as described above. Esperanza Hector MD documented in this encounter Plan of Treatment Date Type Specialty Care Team Description 10/10/2020 Office Visit Urology Esperanza Hector M D [address] [facility] [address] [place] [address] [phone] 11/07/2020 Office Visit Urology Sayra Nguyen, BULB INSPECTOR [address] [facility] [address] [place], [place] [address] [phone] Health Maintenance Due Date Last Done Comments HEPATITIS C (HCV) SCREEN 1950 COLON CANCER SCREENING ANNUAL FIT/FOBT 2001 COLON CANCER SCREENING FIT DNA EVERY 3 2001 YEARS COLON CANCER SCREENING SIGMOIDOSCOPY EVERY 2001 5 YEARS Medicare Wellness Visit 2016 Zoster Recombinant Vaccine (SHINGRIX) (3 09/25/201807/31/ 018, 03/01/2018 of 3) PNEUMOCOCCAL VACCINES 65+ (2 of 2 - 10/12/2018 10/12/2017 PPSV23) Breast Cancer Screening (MAMMOGRAM) 02/29/2020 02/28/2019 INFLUENZA VACCINE (#1) 2020 12/23/2019, 07/31/2018 Depression Screening 08/30/2021 08/30/2020 Osteoporosis Screening 11/30/2022 11/30/2012 COLONOSCOPY 08/24/2024 08/24/2014 Colorectal Cancer Screening 08/24/2024 DTaP,Tdap,and Td Vaccines (2 - Td) 03/01/2028 03/01/2018 documented as of this encounter Results Not on filedocumented in this encounter Visit Diagnoses Diagnosis OAB (overactive bladder) - Primary Hypertonicity of bladder documented in this encounter Additional Health Concerns Infection Onset Date Last Indicated Resolved Time Contact - ESBL 07/29/2019 07/29/2019 documented as of this encounter Insurance Payer Benefit Plan / Subscriber ID Effective Phone Address T ype Group Dates MEDICARE MEDICARE PART [id number] 2016-Flynn [phone] Medicare A & B nt [id number] CHUCKIE DUBON [id number] MULTIPLAN MULTIPLAN [id number] 2016-Flynn PPO GENERIC nt [facility] VetCentric [id number] 2016-Preschristina P PO PLAN PLAN nt [phone] (Home) [phone] [place] [address] documented as of this encounter
--- OUTSIDE RECORDS SUMMARY | 2020-11-15 13:47 | XMS REPORT | Summary of Care ---
:1950 Author Organization [facility] Address [address] [place] [address] Care Team Providers Name Role Phone Eder Coyle MD Primary Care Provider [phone] Reason for Referral (Routine) Status Reason Specialty Diagnoses / Referred By Referred To Procedures Contact Contact New Request Diagnoses Arthritis of both knees Eder Coyle Craig Procedures CONSULT/REFERRAL ORTHOPAEDIC SURGERY MD Taz Salgado MD [address] [place] [address] [address] Sou[address] Donny Brewer [place], [place] [address] [address] [place], [place] Phone: [phone] Phone: Fax: Reason for Visit Reason Comments Knee Pain Pain in Both knees after fal ling about 3 weeks ago Encounter Details Date Type Department Care Team Description 10/03/2020 Office Visit [facility] Family Eder Coyle is of both Medicine - Hans Salgado MD knees (Primary Dx) [address] [place] [address] [place] [address] Allergies Active Allergy Reactions Severity Noted Date Comments Codeine Unknown - See comments 06/03/2016 Meperidine Hcl Unknown - See comments 06/03/2016 documented as of this encounter (statuses as of 10/03/2020) Medications Medication Sig Dispensed Refills Start Date [...] nasal spray conjugated estrogens Insert 0.5 g 30 g 2 10/05/2019 Active 0.625 mg/gram vaginal into vagina creamIndications: SEE-INSTRUCTIONS Recurrent UTI . Place small amount to vaginal opening 2 x week trospium 20 mg Take 1 tablet by 30 tablet 0 09/06/2020 020 Active tabletIndications: OAB mouth daily for (overactive bladder) 30 days. documented as of this encounter (statuses as of 10/03/2020) Active Problems No known active problemsdocumented as of this encounter (statuses as of 10/03/2020) Immunizations Name Administration Dates Next Due Influenza High Dose 12/23/2019, 07/31/2018 Influenza Virus Vaccine 09/27/2020 Pneumococcal 13 Conjugate, PCV13 (Prevnar 13) 10/12/2017 [...] Sign Reading Time Taken Comments Blood Pressure 135/71 10/03/2020 1:21 PM POULTRY HANGER Pulse 81 10/03/2020 1:21 PM POULTRY HANGER Temperature - - Respiratory Rate - - Oxygen Saturation - - Inhaled Oxygen Concentration - - Weight 94.3 kg (208 lb) 10/03/2020 1:21 PM POULTRY HANGER Height 162.6 cm (5' 4") 10/03/2020 1:21 PM POULTRY HANGER Body Mass Index 35.7 10/03/2020 1:21 PM POULTRY HANGER documented in this encounter Progress Notes Eder Coyle MD - 10/03/2020 1:15 PM CST CC: bilateral knee pain Sera is a 70 year old female Knee Pain The incident occurred more than 1 week ago. The incident occurred at home. The injury mechanism was a fall. The pain is present in the right knee and left knee. The quality of the pain is described as aching. The pain is moderate. The pain has been constant since onset. The symptoms are aggravated by weight bearing. Allergies Allergen Reactions Codeine Unknown - See comments Demerol [Meperidine Hcl] Unknown - See comments Current Outpatient Medications Medication Sig Dispense Refill trospium 20 mg tablet Take 1 tablet by mouth daily for 30 days. 30 tablet 0 conjugated estrogens 0.625 mg/gram vaginal cream Insert 0.5 g into vagina SEE-INSTRUCTIONS. Place small amount to vaginal opening 2 x week 30 g 2 fluticasone (FLONASE ALLERGY RELIEF) 50 mcg/actuation nasal spray Use in each nostril daily. isosorbide mononitrate 30 mg 24 hr tablet Take 30 mg by mouth. metoprolol tartrate 25 mg tablet Take 25 mg by mouth 2 (two) times daily. aspirin 81 mg EC tablet Take 325 mg by mouth daily. atorvastatin (LIPITOR) 20 mg tablet Take 20 mg by mouth at bedtime. esomeprazole magnesium (NEXIUM 24HR) 22.3 mg CpDR Take by mouth. lisinopril-hydrochlorothiazide (PRINZIDE,ZESTORETIC) 20-12.5 mg per tablet Take 1 tablet by mouth daily. No current facility-administered medications for this visit. Past Medical History: Diagnosis Date Esophageal reflux Hyperlipidemia Hypertension Seizures Past Surgical History: Procedure Laterality Date ESOPHAGOGASTRODUODENOSCOPY N/A 11/18/2017 Surgeon: Vashti Ibrahim MD; Location[place] [facility] [place] INSERT/PLACE HEART CATHETER 2016 HYSTERECTOMY full KNEE ARTHROSCOPY Bilateral 1996, 2002 [place] PATIENT HAS A CORONARY ARTERY STENT 08/29/2016 Social History Socioeconomic History Marital status: Single [...] file Gets together: Not on file Attends advent service: Not on file Active member of [...] file Social History Narrative Not on file Family History Problem Relation Age of Onset Heart Mother Coronary Heart Disease Mother Coronary Heart Disease Father Review of Systems BP 135/71 | Pulse 81 | Ht 5' 4" (1.626 m) | Wt 208 lb (94.3 kg) | BMI 35.70 kg/m Physical Exam Constitutional: She is oriented to person, place, and time. She appears well- developed and well-nourished. HENT: Head: Normocephalic and atraumatic. Eyes: Pupils are equal, round, and reactive to light. Conjunctivae are normal. Neck: Normal range of motion. Neck supple. No JVD present. No tracheal deviation present. No thyromegaly present. Cardiovascular: Normal rate, regular rhythm, normal heart sounds and intact distal pulses. Exam reveals no gallop and no friction rub. No murmur heard. Pulmonary/Chest: Effort normal and breath sounds normal. No respiratory distress. She has no wheezes. She has no rales. She exhibits no tenderness. Abdominal: Soft. Bowel sounds are normal. She exhibits no distension and no mass. There is no abdominal tenderness. There is no rebound and no guarding. Musculoskeletal: Normal range of motion. General: No tenderness or edema. Lymphadenopathy: She has no cervical adenopathy. Neurological: She is alert and oriented to person, place, and time. Skin: Skin is warm and dry. Diagnosis: 1. Arthritis of both knees CONSULT/REFERRAL ORTHOPAEDIC SURGERY Follow up: prn Patient Care Team: Eder Coyle MD as PCP - General (FM-FAMILY MEDICINE) Plan of care, desired health behaviors, goals,& medication discussed with patient. Education resources & self management tools provided and reviewed with AVS. Patient/guardian/family verbalized understanding & agrees to plan of care. Barriers to care: None Ability to manage care: Good documented in this encounter Plan of Treatment Date Type Specialty Care Team Description 10/10/2020 Office Visit Urology Esperanza Hector M D [address] [facility] [address] [place], [place] [address] 11/07/2020 Office Visit Urology Sayra Nguyen, TOWEL CABINET REPAIRER [address] [facility] [address] [place], [place] [address] Health Maintenance Due Date Last Done Comments HEPATITIS C (HCV) SCREEN 1950 COLON CANCER SCREENING ANNUAL 2001 FIT/FOBT COLON CANCER SCREENING FIT DNA EVERY 2001 3 YEARS COLON CANCER SCREENING SIGMOIDOSCOPY 2001 EVERY 5 YEARS Medicare Wellness Visit 2016 Zoster Recombinant Vaccine (SHINGRIX) 09/25/2018 07/31/2018 , 03/01/2018 (3 of 3) PNEUMOCOCCAL VACCINES 65+ (2 of 2 - 10/12/2018 10/12/2017 PPSV23) Breast Cancer Screening (MAMMOGRAM) 02/29/2020 02/28/2019 Depression Screening 08/30/2021 08/30/2020 Osteoporosis Screening 11/30/2022 11/30/2012 COLONOSCOPY 08/24/2024 08/24/2014 Colorectal Cancer Screening 08/24/2024 DTaP,Tdap,and Td Vaccines (2 - Td) 03/01/2028 03/01/2018 INFLUENZA VACCINE Completed 09/27/2020, 12/23/2019, 07/31/2018 documented as of this encounter Results Not on filedocumented in this encounter Visit Diagnoses Diagnosis Arthritis of both knees - Primary documented in this encounter Additional Health Concerns Infection Onset Date Last Indicated Resolved Time Contact - ESBL 07/29/2019 07/29/2019 documented as of this encounter Insurance Payer Benefit Plan Subscriber ID Effective Phone Address Typ e / Group Dates MEDICARE MEDICARE PART [id number] 2016-Flynn [phone] [address] Medicare A & B nt [id number] CHUCKIE DUBON [id number] [facility] [id number] 2016-Flynn P PO PLAN PLAN nt [address]ani x [phone] (Home) [phone] [place] [address] documented as of this encounter
--- OUTSIDE RECORDS SUMMARY | 2020-11-15 13:47 | XMS REPORT | Summary of Care ---
:1950 Author Organization [facility] Address [address] [place] [address] Care Team Providers Name Role Phone Eder Coyle MD Primary Care Provider [phone] Reason for Visit Reason Comments URINARY TRACT INFECTION 5 x with in a year Encounter Details Date Type Department Care Team Description 09/06/2020 Office Visit [facility] Urology- Arnoldo Hector MD OAB (overactive [place] [address] [facility] bladder) (Primary Dx) [address] [address] [facility] [address] [place] [address] [id number] Allergies Active Allergy Reactions Severity Noted Date [...] 09/06/2020 2:00 PM CDT Esperanza Hector MD Talent Acquisition Director of Urology Female Urology, Voiding Dysfunction and Pelvic Reconstruction [facility] Division of Urology Referring Provider: Dr. Ortega [...] N/A 11/18/2017 Surgeon: Vashti Ibrahim MD; [place] [facility] [place] INSERT/PLACE HEART CATHETER 2016 HYSTERECTOMY full KNEE ARTHROSCOPY Bilateral 1996, 2002 [place] PATIENT HAS A CORONARY ARTERY STENT 08/29/2016 [...] file Gets together: Not on file Attends sikhism service: Not on file Active member of [...] Visit Urology Esperanza Hector M D [address] [facility] [address] [place] [address] [phone] 11/07/2020 Office Visit Urology Sayra Nguyen, HAND TUBE BENDER [address] [facility] [address] [place], [place] [address] [phone] Health Maintenance Due Date Last Done Comments [...] T ype Group Dates MEDICARE MEDICARE PART [id number] 2016-Flynn [phone] Medicare A & B nt [id number] CHUCKIE DUBON [id number] MULTIPLAN MULTIPLAN [id number] 2016-Flynn PPO GENERIC nt [facility] Crzyfish [id number] 2016-Preschristina P PO PLAN PLAN nt [phone] (Home) [phone] [place] [address] documented as of this encounter
--- OUTSIDE RECORDS SUMMARY | 2020-11-15 13:47 | XMS REPORT | Summary of Care ---
:1950 Author Organization [address] [address] Care Team Providers Name Role Phone Eder Coyle MD Primary Care Provider [phone] Reason for Visit Reason Comments Follow-up (Routine) Status Reason Specialty Diagnoses / Procedures Referred By C earnest Referred To Contact Closed Urology Diagnoses Recurrent UTI Sayra Nguyen, GLASS CHECKER Esperanza Hector MD Procedures CONSULT/REFERRAL UROLOGY [address] 2280 [facility] [address] [place], [place] [address] [address] Phone: [place] [address] Phone: Fax: Encounter Details Date Type Department Care Team Description 08/30/2020 Office Visit [facility] Urology- Cha Ortega MD Recurrent UTI (Primary Dx); [address] Urinary incontinence, unspecified type; [facility] [place] [address] [facility] 102 [place] [address] Allergies Active Allergy Reactions Severity [...] N/A 11/18/2017 Surgeon: Vashti Ibrahim MD; [place] [facility] [place]/PLACE HEART CATHETER 2016 HYSTERECTOMY full KNEE ARTHROSCOPY Bilateral 1996, 2002 [place] PATIENT HAS A CORONARY ARTERY STENT 08/29/2016 [...] file Gets together: Not on file Attends hindu service: Not on file Active member of [...] pain reported 0/10. Pt preferred language is [place] Sudanese. Pt. denies fall in last 12 months. Allergies and medications reviewed and updated. Per order Post void residual by bladder scan = 11 ml, results reported to provider. documented in this encounter Plan of Treatment Date Type Specialty Care Team Description 09/06/2020 Office Visit Urology Esperanza Hector M D 2280 [facility] [address] [place], [place] [address] 11/07/2020 Office Visit Urology Sayra Nguyen FNP [address] [facility] 102 [place], [place] [address] [phone] Health Maintenance Due Date Last Done Comments [...] T ype Group Dates MEDICARE MEDICARE PART [id number] 2016-Prese [phone] [address] Medicare A & B nt [id number] CHUCKIE DUBON [id number] MULTIPLAN MULTIPLAN [id number] 2016-Prese PPO GENERIC nt [facility] [id number] 2016-Flynn Smith PO PLAN PLAN nt [address] ste[address] x [phone] (Home) [phone] [place] [address] documented as of this encounter
--- OUTSIDE RECORDS SUMMARY | 2020-11-15 13:47 | XMS REPORT | Summary of Care ---
:1950 Author Organization [address] [address] Care Team Providers Name Role Phone Eder Coyle MD Primary Care Provider [phone] Reason for Visit Reason Comments Follow-up (Routine) Status Reason Specialty Diagnoses / Procedures Referred By C earnest Referred To Contact Closed Urology Diagnoses Recurrent UTI Sayra Nguyen, REEFER ENGINEER Esperanza Hector MD Procedures CONSULT/REFERRAL UROLOGY [address] 2280 [facility] [address] [place], [place] [address] [address] Phone: [place] [address] Phone: Fax: Encounter Details Date Type Department Care Team Description 08/30/2020 Office Visit [facility] Urology- Cha Ortega MD Recurrent UTI (Primary Dx); [address] Urinary incontinence, unspecified type; [facility] [place] [address] [facility] 102 [place] [address] Allergies Active Allergy Reactions Severity [...] N/A 11/18/2017 Surgeon: Vashti Ibrahim MD; Location: [facility] [place] HB INSERT/PLACE HEART CATHETER 2016 HYSTERECTOMY full KNEE ARTHROSCOPY Bilateral 1996, 2002 [place] PATIENT HAS A CORONARY ARTERY STENT 08/29/2016 [...] file Gets together: Not on file Attends mandaeism service: Not on file Active member of [...] pain reported 0/10. Pt preferred language is [place]an. Pt. denies fall in last 12 months. Allergies and medications reviewed and updated. Per order Post void residual by bladder scan = 11 ml, results reported to provider. documented in this encounter Plan of Treatment Date Type Specialty Care Team Description 09/06/2020 Office Visit Urology Esperanza Hector M D 2280 [facility] [address] [place] [address] 11/07/2020 Office Visit Urology Sayra Nguyen FNP [address] [facility] [address] [place], [place] [address] Health Maintenance Due Date Last Done [...] T ype Group Dates MEDICARE MEDICARE PART [id number] 2016-Flynn [phone] [address] Medicare A & B nt [id number] CHUCKIE DUBON [id number] MULTIPLAN MULTIPLAN [id number] 2016-Flynn PPO GENERIC nt [facility] [id number] 2016-Preschristina P PO PLAN PLAN nt [phone] (Home) [phone] [place] [address] documented as of this encounter
--- OUTSIDE RECORDS SUMMARY | 2020-11-15 13:48 | XMS REPORT | Summary of Care ---
:1950 Author Organization [facility] Address [address] [place] [address] Care Team Providers Name Role Phone Eder Coyle MD Primary Care Provider [phone] Reason for Referral Radiology Services (Routine) Status Reason Specialty Diagnoses / Referred By Referred To Procedures Contact Contact New Request Diagnostic Diagnoses Pain in both knees, unspecified chronicity Joel Hercules Radiology Procedures XR KNEE 3 VW BILATERAL MD Taz [address] [place] [address] [place] [address] Reason for Visit Reason Comments Xray bilateral knee pain Encounter Details Date Type Department Care Team Description 10/04/2020 Telephone [facility] Orthopaedic Joel Hercules X ray (bilateral knee Surgery- Hans Mcghee MD pain) [address] [place] [address] [place] [address] [place] [phone] [address] Allergies Active Allergy Reactions Severity Noted Date Comments Codeine Unknown - See comments 06/03/2016 Meperidine Hcl Unknown - See comments 06/03/2016 documented as of this encounter (statuses as of 10/04/2020) Medications Medication Sig Dispensed Refills Start Date [...] as of this encounter (statuses as of 10/04/2020) Active Problems No known active problemsdocumented as of this encounter (statuses as of 10/04/2020) Immunizations Name Administration Dates Next Due Influenza [...] of this encounter Last Filed Vital Signs Not on filedocumented in this encounter Plan of Treatment Date Type Specialty Care Team Description 10/05/2020 Office Visit Orthopedic Surgery Paresh Hercules MD [address] [address] 10/10/2020 Office Visit Urology Esperanza Hector M D 22[address] [facility] beds at [facility] 2.[address] [place] [address] [phone] 11/07/2020 Office Visit Urology Sayra Nguyen, CONTACT CENTER ASSISTANT [address] [facility] 102 [place], [place] [address] [phone] Name Type Priority Associated Diagnoses Order S chedule XR KNEE 3 VW BILATERAL IMAGING Routine Pain in both knees , 1 Occurrences starting unspecified chronicity 10/04 until 10/04/2021 Health Maintenance Due Date Last Done Comments [...] filedocumented in this encounter Visit Diagnoses Diagnosis Pain in both knees, unspecified chronici ty - Primary documented in this encounter Additional Health Concerns Infection Onset Date Last Indicated Resolved Time Contact - ESBL 07/29/2019 07/29/2019 documented as of this encounter Insurance Payer Benefit Plan Subscriber ID Effective Phone Address Typ e / Group Dates MEDICARE MEDICARE PART [id number] 2016-Flynn [phone] [address] Medicare A & B nt 82 [id number] CHUCKIE DUBON [id number] [facility] [id number] 2016-Flynn Smith PO PLAN PLAN nt documented as of this encounter
--- OUTSIDE RECORDS SUMMARY | 2020-11-15 13:48 | XMS REPORT | Summary of Care ---
:1950 Author Organization [facility] Address [address] [place] [address] Care Team Providers Name Role Phone Eder Coyle MD Primary Care Provider [phone] Reason for Visit Reason Comments Follow-up OAB Encounter Details Date Type Department Care Team Description 10/10/2020 Office Visit [facility] Urology, Arnoldo Hector MD Overactive bladder [address] (Primary Dx) 250 [facility] 1st Floor [address] [place] [address] [phone] Allergies Active Allergy Reactions Severity Noted Date Comments Codeine Unknown - See comments 06/03/2016 Meperidine Hcl Unknown - See comments 06/03/2016 documented as of this encounter (statuses as of 10/10/2020) Medications Medication Sig Dispensed Refills Start Date [...] amount to vaginal opening 2 x week diclofenac 75 mg EC Take 1 tablet by 60 tablet 1 10/05/2020 Active tabletIndications: mouth 2 (two) Pain in both knees, times daily with unspecified chronicity meals. trospium 20 mg Take 1 tablet by 90 tablet 3 10/10/2020 020 Active tabletIndications: mouth daily for Overactive bladder 30 days. documented as of this encounter (statuses as of 10/10/2020) Active Problems No known active problemsdocumented as of this encounter (statuses as of 10/10/2020) Immunizations Name Administration Dates Next Due Influenza [...] been in contact with No / Unsure 10/10/2020 1:36 PM RACING CAR DRIVER someone who was confirmed or suspected to have Coronavirus / COVID-19? documented as of this encounter Last Filed Vital Signs Vital Sign Reading Time Taken Comments Blood Pressure 139/66 10/10/2020 1:36 PM RACING CAR DRIVER Pulse 83 10/10/2020 1:36 PM RACING CAR DRIVER Temperature 36.7 C (98 F) 10/10/2020 1:36 PM RACING CAR DRIVER Respiratory Rate 18 10/10/2020 1:36 PM RACING CAR DRIVER Oxygen Saturation 96% 10/10/2020 1:36 PM RACING CAR DRIVER Inhaled Oxygen Concentration - - Weight 94.9 kg (209 lb 4.8 oz) 10/10/2020 1:36 PM RACING CAR DRIVER Height 162.6 cm (5' 4") 10/10/2020 1:36 PM RACING CAR DRIVER Body Mass Index 35.93 10/10/2020 1:36 PM RACING CAR DRIVER documented in this encounter Progress Notes Esperanza Hector MD - 10/10/2020 1:30 PM CST Esperanza Hector MD Grid Operator of Urology Female Urology, Voiding Dysfunction and Pelvic Reconstruction [facility] Division of Urology Referring Provider: Dr. [...] back problem. She is not sexually active. 10/10/2020: doing well with trospium 20 mg, and likes to continue. Denies any side effects PAST MEDICAL HISTORY: Past Medical History: Diagnosis Date Esophageal reflux Hyperlipidemia Hypertension Seizures PAST SURGICAL HISTORY: Past Surgical History: Procedure Laterality Date ESOPHAGOGASTRODUODENOSCOPY N/A 11/18/2017 Surgeon: Vashti Ibrahim MD; Location: [facility] [place] [facility] HB INSERT/PLACE HEART CATHETER 2016 HYSTERECTOMY full KNEE ARTHROSCOPY Bilateral 1996, 2002 [place] PATIENT HAS A CORONARY ARTERY STENT 08/29/2016 MEDICATIONS: Current Outpatient Medications: diclofenac 75 mg EC tablet, Take 1 tablet by mouth 2 (two) times daily with meals., Disp: 60 tablet, Rfl: 1 conjugated estrogens 0.625 mg/gram vaginal cream, Insert [...] file Gets together: Not on file Attends roman catholic service: Not on file Active member of [...] moles or other lesions. PHYSICAL EXAMINATION: BP 139/66 (BP Location: Left arm, Patient Position: Sitting, BP CUFF SIZE: Adult Medium) | Pulse 83 | Temp 36.7 C (98 F) (Oral) | Resp 18 | Ht 5' 4" (1.626 m) | Wt 209 lb 4.8 oz (94.9 kg) | SpO2 96% | BMI 35.93 kg/m General: Well Developed. No apparent distress. Eyes: Normal conjunctiva. ENT: No external lesions. Neck is supple. No masses. Resp: Normal respiratory effort. CV: No LE edema. GI: Abdomen soft nontender nondistended. Musculoskeletal: Normal gait and station. Normal range of motion. Skin: No rash, lesions, ulcers. Psych: Normal judgement/ insight. Awake and oriented x 3. . LABS: Reviewed PVR low( today 10/10/2020). ASSESSMENT AND PLAN: The patient is a [...] up. Okay to continue the estrogen cream She is happy with trospium and likes to continue. Reviewed the side effects again. RTC in 6 months Given patient education materials for SNM vs [...] up as described above. Esperanza Hector MD llyssa Turner - 10/10/2020 1:30 PM CSTPer order Post void residual by bladder scan = 17 ml, results reported to provider. documented in this encounter Plan of Treatment Date Type Specialty Care Team Description 11/07/2020 Office Visit Urology Sayra Nguyen, ORGANIZATION DEVELOPMENT CONSULTANT [address] [facility] 102 [place], [place] [address] [phone] 04/10/2021 Office Visit Urology Esperanza Hector M D 22[address] [facility] 2.[address] [place] [address] [phone] Health Maintenance Due Date Last Done Comments [...] filedocumented in this encounter Visit Diagnoses Diagnosis Overactive bladder - Primary Hypertonicity of bladder documented in this encounter Additional Health Concerns Infection Onset Date Last Indicated Resolved Time Contact - ESBL 07/29/2019 07/29/2019 documented as of this encounter Insurance Payer Benefit Plan Subscriber ID Effective Phone Address Typ e / Group Dates MEDICARE MEDICARE PART [id number] 2016-Flynn [phone] [address] Medicare A & B nt 82 [id number] CHUCKIE DUBON [id number] [facility] [id number] 2016-Preschristina P PO PLAN PLAN nt [address] x [phone] (Home) [phone] [place] [address] documented as of this encounter
--- OUTSIDE RECORDS SUMMARY | 2020-11-15 13:48 | XMS REPORT | Summary of Care ---
:1950 Author Organization [facility] Address [address] [place] [address] Care Team Providers Name Role Phone Eder Coyle MD Primary Care Provider [phone] Reason for Referral Radiology Services (Routine) Status Reason Specialty Diagnoses / Referred By Referred To Procedures Contact Contact Closed Diagnostic Diagnoses Pain in both knees, unspecified chronicity Joel Hercules Radiology Procedures XR KNEE 3 VW BILATERAL MD Taz [address] [facility] [place] [address] Reason for Visit Radiology Services (Routine) Status Reason Specialty Diagnoses / Referred By Referred To Procedures Contact Contact Closed Diagnostic Diagnoses Pain in both knees, unspecified chronicity Joel Hercules Radiology Procedures XR KNEE 3 VW BILATERAL MD Taz [address] [place] [address] Encounter Details Date Type Department Care Team Description 10/05/2020 Hospital Encounter [facility] Lesley Hercules, Joy Shaw Radiology [address] [place] [address] Dr mathew [address] [place] [address] [address] [phone] [place] [address] Allergies Active Allergy Reactions Severity Noted Date Comments Codeine Unknown - See comments 06/03/2016 Meperidine Hcl Unknown - See comments 06/03/2016 documented as of this encounter (statuses as of 10/06/2020) Medications Medication Sig Dispensed Refills Start Date [...] mouth daily for (overactive bladder) 30 days. diclofenac 75 mg EC Take 1 tablet by 60 tablet 1 10/05/2020 Active tabletIndications: mouth 2 (two) Pain in both knees, times daily with unspecified chronicity meals. documented as of this encounter (statuses as of 10/06/2020) Active Problems No known active problemsdocumented as of this encounter (statuses as of 10/06/2020) Immunizations Name Administration Dates Next Due Influenza [...] been in contact with No / Unsure 10/05/2020 8:58 AM MOUNTING INSPECTOR someone who was confirmed or suspected to have Coronavirus / COVID-19? documented as of this encounter Last Filed Vital Signs Not on filedocumented in this encounter Plan of Treatment Date Type Specialty Care Team Description 10/10/2020 Office Visit Urology Esperanza Hector M D 2280 [facility] [address] [place], [place] [address] 11/07/2020 Office Visit Urology Sayra Nguyen, ASSOCIATE SALES [address] [facility] 102 [place], [place] [address] [phone] Health Maintenance Due Date Last Done Comments [...] 12/23/2019, 07/31/2018 documented as of this encounter Procedures Procedure Name Priority Date/Time Associated Diagnosis Comme nts XR KNEE 3 VW Routine 10/05/2020 9:35 AM Pain in both knees, R esults for this BILATERAL MOUNTING INSPECTOR unspecified procedure are i n chronicity the results section. documented in this encounter Results XR KNEE 3 VW BILATERAL (10/05/2020 9:35 AM MOUNTING INSPECTOR) Specimen Impressions Performed At PACS/VR/DOSE Severe bilateral knee osteoarthrosis. Narrative Performed At EXAM: PACS/VR/DOSE XR KNEE 3 VW BILATERAL HISTORY: bilateral knee pain COMPARISON: None FINDINGS: Imaging of the left and right knee demonstrates severe medial compartment joint space loss. Tricompartmental subch ondral sclerosis with marginal osteophyte formation and degenerative tibial spine hyp ertrophy is present. Small effusions are present. Dystrophic pretibial soft tissue calcifications are seen on the right. Procedure Note [facility], Radiant Results Inft User - 2019 11:42 AM MOUNTING INSPECTOR EXAM: XR KNEE 3 VW BILATERAL HISTORY: bilateral knee pain COMPARISON: None FINDINGS: Imaging of the left and right knee demon strates severe medial compartment joint space loss. Tricompartmental subch ondral sclerosis with marginal osteophyte formation and degenerative ti bial spine hypertrophy is present. Small effusions are present. Dystrophic pretibial soft tissue calcifications are seen on the right. IMPRESSION Severe bilateral knee osteoarthrosis. Performing Organization Address City/State/Zipcode Phone Number PACS/VR/DOSE documented in this encounter Visit Diagnoses Diagnosis Pain in both knees, unspecified chronici ty documented in this encounter Additional Health Concerns Infection Onset Date Last Indicated Resolved Time Contact - ESBL 07/29/2019 07/29/2019 documented as of this encounter Insurance Payer Benefit Plan Subscriber ID Effective Phone Address Typ e / Group Dates MEDICARE MEDICARE PART [id number] 2016-Flynn [phone] [address] Medicare A & B nt 82 [id number] CHUCKIE DUBON [phone] [facility] [id number] 2016-Preschristina P PO PLAN PLAN nt [phone] (Home) [phone] [place] [address] documented as of this encounter
--- OUTSIDE RECORDS SUMMARY | 2020-11-15 13:48 | XMS REPORT | Summary of Care ---
:1950 Author Organization [facility] Address [address] [place] [address] Care Team Providers Name Role Phone Eder Coyle MD Primary Care Provider [phone] Reason for Visit Reason Comments Follow-up OAB Encounter Details Date Type Department Care Team Description 10/10/2020 Office Visit [facility] Urology, Arnoldo Hector MD Overactive bladder [address] (Primary Dx) 250 [facility] 1st Floor [address] [place] [address] [phone] Allergies Active Allergy Reactions Severity Noted Date [...] with No / Unsure 10/10/2020 1:36 PM QUALITY COMPLIANCE MANAGER someone who was confirmed or suspected to have Coronavirus / COVID-19? documented as of this encounter Last Filed Vital Signs Vital Sign Reading Time Taken Comments Blood Pressure 139/66 10/10/2020 1:36 PM QUALITY COMPLIANCE MANAGER Pulse 83 10/10/2020 1:36 PM QUALITY COMPLIANCE MANAGER Temperature 36.7 C (98 F) 10/10/2020 1:36 PM QUALITY COMPLIANCE MANAGER Respiratory Rate 18 10/10/2020 1:36 PM QUALITY COMPLIANCE MANAGER Oxygen Saturation 96% 10/10/2020 1:36 PM QUALITY COMPLIANCE MANAGER Inhaled Oxygen Concentration - - Weight 94.9 kg (209 lb 4.8 oz) 10/10/2020 1:36 PM QUALITY COMPLIANCE MANAGER Height 162.6 cm (5' 4") 10/10/2020 1:36 PM QUALITY COMPLIANCE MANAGER Body Mass Index 35.93 10/10/2020 1:36 PM QUALITY COMPLIANCE MANAGER documented in this encounter Progress Notes Esperanza Hector MD - 10/10/2020 1:30 PM CST Esperanza Hector MD Auto [employer] Shop Manager of Urology Female Urology, Voiding Dysfunction and Pelvic Reconstruction [facility] Division of Urology Referring Provider: Dr. Ortega [...] N/A 11/18/2017 Surgeon: Vashti Ibrahim MD; [place] [facility] [place] INSERT/PLACE HEART CATHETER 2016 HYSTERECTOMY full KNEE ARTHROSCOPY Bilateral 1996, 2002 [place] PATIENT HAS A CORONARY ARTERY STENT 08/29/2016 [...] file Gets together: Not on file Attends buddhist service: Not on file Active member of [...] Description 11/07/2020 Office Visit Urology Sayra Nguyen, ASSAYER HELPER [address] [facility] 102 [place], [place] [address] [phone] 04/10/2021 Office Visit Urology Esperanza Hector M D 2280 [facility] [address] [place] [address] [phone] Health Maintenance Due Date Last Done Comments [...] e / Group Dates MEDICARE MEDICARE PART [id number] 2016-Flynn [phone] [address] X Medicare A & B nt 82 [id number] CHUCKIE DUBON [phone] [facility] [id number] 2016-Preschristina P PO PLAN PLAN nt [address] stephani x [phone] (Home) [phone] [place] [address] documented as of this encounter
--- OUTSIDE RECORDS SUMMARY | 2020-11-15 13:48 | XMS REPORT | Summary of Care ---
:1950 Author Organization [facility] Address [address] [place] [address] Care Team Providers Name Role Phone Eder Coyle MD Primary Care Provider [phone] Reason for Referral (Routine) Status Reason Specialty Diagnoses / Referred By Referred To Procedures Contact Contact New Request Diagnoses Arthritis of both knees Eder Coyle Craig Procedures CONSULT/REFERRAL ORTHOPAEDIC SURGERY MD Taz Salgado MD [address] [place] [address] DR Souza [address] [place], [place] [address] [address] [place], [place] Phone: [phone] Phone: Fax: Reason for Visit Reason Comments Knee Pain Pain in Both knees after fal ling about 3 weeks ago Encounter Details Date Type Department Care Team Description 10/03/2020 Office Visit [facility] Family Eder Coyle is of both Medicine - Hans Salgado MD knees (Primary Dx) [address] [place] [address] [place] [address] Allergies Active Allergy Reactions [...] Comments Blood Pressure 135/71 10/03/2020 1:21 PM INSTRUMENT MAKER APPRENTICE Pulse 81 10/03/2020 1:21 PM INSTRUMENT MAKER APPRENTICE Temperature - - Respiratory Rate - - Oxygen Saturation - - Inhaled Oxygen Concentration - - Weight 94.3 kg (208 lb) 10/03/2020 1:21 PM INSTRUMENT MAKER APPRENTICE Height 162.6 cm (5' 4") 10/03/2020 1:21 PM INSTRUMENT MAKER APPRENTICE Body Mass Index 35.7 10/03/2020 1:21 PM INSTRUMENT MAKER APPRENTICE documented in this encounter Progress Notes Eder [...] N/A 11/18/2017 Surgeon: Vashti Ibrahim MD; Location: [facility] [place] HB INSERT/PLACE HEART CATHETER 2016 HYSTERECTOMY full KNEE ARTHROSCOPY Bilateral 1996, 2002 [place] PATIENT HAS A CORONARY ARTERY STENT 08/29/2016 [...] file Gets together: Not on file Attends mosque service: Not on file Active member of [...] Visit Orthopedic Surgery Paresh Hercules MD [address] [place], [place] [address] [phone] 10/10/2020 Office Visit Urology Esperanza Hector M D 22[address] [facility] [address] [place], [place] [address] 11/07/2020 Office Visit Urology Sayra Nguyen, HAND HARDENER [address] [facility] [address], [place] [address] Health Maintenance Due Date Last Done [...] e / Group Dates MEDICARE MEDICARE PART [id number] 2016-Flynn [phone] [address] X Medicare A & B nt 82 [id number] CHUCKIE DUBON [id number] [facility] [id number] 2016-Flynn P PO PLAN PLAN nt [address] stephani x [phone] (Home) [phone] [place] [address] documented as of this encounter
--- OUTSIDE RECORDS SUMMARY | 2020-11-15 13:48 | XMS REPORT | Summary of Care ---
:1950 Author Organization [facility] [place] Address [address] [place] [address] Care Team Providers Name Role Phone Eder Coyle MD Primary Care Provider [phone] Reason for Visit Reason Comments New Patient Arthritis of both knees, and swelling (Routine) Status Reason Specialty Diagnoses / Referred By Referred To Procedures Contact Contact Authorized Orthopedic Surgery Diagnoses Arthritis of both knees Eder Coyle Craig Procedures CONSULT/REFERRAL ORTHOPAEDIC SURGERY MD Taz Salgado MD [address] Faina arias [facility] [place] [phone] Phone: Fax: Encounter Details Date Type Department Care Team Description 10/05/2020 Office Visit [facility] Orthopaedic Joel Hercules P ain in both knees, Surgery- Hans Mcghee MD unspecified chronicity [address] [facility] Donny Allen rry (Primary Dx) [address] [facility] [place] [address] [place], [place] [phone] Allergies Active Allergy Reactions Severity Noted Date Comments Codeine Unknown - See comments 06/03/2016 Meperidine Hcl Unknown - See comments 06/03/2016 documented as of this encounter (statuses as of 10/05/2020) Medications Medication Sig Dispensed Refills Start Date [...] as of this encounter (statuses as of 10/05/2020) Active Problems No known active problemsdocumented as of this encounter (statuses as of 10/05/2020) Immunizations Name Administration Dates Next Due Influenza [...] with No / Unsure 10/05/2020 8:58 AM WASHERY BOSS someone who was confirmed or suspected to have Coronavirus / COVID-19? documented as of this encounter Last Filed Vital Signs Vital Sign Reading Time Taken Comments Blood Pressure 142/76 10/05/2020 10:19 AM WASHERY BOSS Pulse 64 10/05/2020 10:15 AM WASHERY BOSS Temperature - - Respiratory Rate - - Oxygen Saturation - - Inhaled Oxygen Concentration - - Weight 94.3 kg (208 lb) 10/05/2020 10:15 AM WASHERY BOSS Height 162.6 cm (5' 4") 10/05/2020 10:15 AM WASHERY BOSS Body Mass Index 35.7 10/05/2020 10:15 AM WASHERY BOSS documented in this encounter Progress Notes Joel Hercules MD - 10/05/2020 10:15 AM CST Cc: Chief Complaint Patient presents with New Patient Arthritis of both knees, and swelling New Visit Patient is complaining of bilateral knee pain and swelling. She is aware that she has arthritis in both knees. Injury Mechanism: Patient tripped over a post framer when building a fence. DOI 09/14/2020 Sera Min is a 70 year old female. Knee Pain Incident onset: 09/14/2020. The incident occurred at home. The injury mechanism was a fall. The painis present in the left knee and right knee. The quality of the pain is described as stabbing. The pain is at a severity of 7/10. The pain has been worsening since onset. Associated symptoms include numbness. Associated symptoms comments: stiffness. The symptoms are aggravated by movement and weight bearing. She has tried elevation and NSAIDs for the symptoms. Allergies Sera is allergic to codeine and demerol [meperidine hcl]. Medications Outpatient Medications Prior to Visit Medication Sig Dispense Refill trospium 20 mg [...] Take 1 tablet by mouth daily. No facility-administered medications prior to visit. Histories Past Medical History: Diagnosis Date Esophageal reflux Hyperlipidemia Hypertension Seizures Past Surgical History: Procedure Laterality Date ESOPHAGOGASTRODUODENOSCOPY N/A 11/18/2017 Surgeon: Vashti Ibrahim MD; [place] [facility]PLACE HEART CATHETER 2015 HYSTERECTOMY full KNEE ARTHROSCOPY Bilateral 1996, 2002 [place] PATIENT HAS A CORONARY ARTERY STENT 08/29/2016 [...] file Gets together: Not on file Attends yazidism service: Not on file Active member of [...] Coronary Heart Disease Father Review of Systems Constitutional: Negative. HENT: Negative. Eyes: Negative. Respiratory: Negative. Breasts: Negative. Cardiovascular: Negative. Gastrointestinal: Negative. Genitourinary: Negative. Musculoskeletal: Positive for joint swelling. Skin: Negative. Neurological: Positive for numbness. Psychiatric/Behavioral: Negative. Endocrine: Endocrine negative Vital Signs There were no vitals taken for this visit. Physical Exam Musculoskeletal: Comments: General: Well-developed well-nourished oriented to person place and time HEENT normocephalic atraumatic atraumatic pupils equal round reactive to light extraocular muscles intact Cervical thoracic and lumbar spine without focal deficit normal kyphosis and lordosis Chest clear to auscultation and percussion Cardiovascular regular rate and rhythm without gallop rub or murmur soft without organomegaly Normal bowel sounds Neurologic: Focal myotome or dermatomal deficits Vascular: Intact symmetrical bilateral upper and lower extremities Skin without stasis varicosities or breakdown Extremities without cyanosis clubbing or edema Lymphatics no peripheral lymphedema Psych normal mood and affect. Neurovascular function is intact. To include brisk capillary refill warm pink skin active motor function and sensory function intact. EXAM: XR KNEE 3 VW BILATERAL HISTORY: bilateral knee pain COMPARISON: None FINDINGS: Imaging of the left and right knee demonstrates severe medial compartment joint space loss. Tricompartmental subchondral sclerosis with marginal osteophyte formation and degenerative tibial spine hypertrophy is present. Small effusions are present. Dystrophic pretibial soft tissue calcifications are seen on the right. IMPRESSION Severe bilateral knee osteoarthrosis. Assessment/Plan Bilateral knee osteoarthritis Patient's knee(s) is/are wearing out and will eventually need a total knee replacement but will takepreventative measures prior to discussing surgery. Will take this in a stepwise fashion first beginning with NSAIDs. Next would be a cortisone injection. A cortisone injection will only help with the inflammatory response. Cortisone injections will be given no less than 3 months in a 3 year time frame. Hymalecular weight hylaronic acid injection series would follow cortisone injections. If the response is well to the cortisone this is usually an indication of how one will respond to Hymalecular weight hylaronic injections. These injections are given once weekly to the affected knee for 3 weeks. This can give at least 6 months of relief in 3 out of 4 people. If these steps do not help the last option would be to have a total knee replacement. The Rehab department will reach out to discuss making an appointment for an informational session called Total Replacement Boot Camp. This does not mean you are ready for a total knee replacement, it's simply preparation should you eventually decide to have/need a joint replacement. Diclofenac today. Follow up prn. documented in this encounter Plan of Treatment Date Type Specialty Care Team Description 10/10/2020 Office Visit Urology Espreanza Hector M D [address] [facility] [address] [place] [address] [phone] 11/07/2020 Office Visit Urology Sayra Nguyen FNP [address] [facility] [address] [place], [place] [address] Health Maintenance Due Date [...] e / Group Dates MEDICARE MEDICARE PART [id number] 2016-[place] [phone] [address]. [address] ANNA X Medicare A & B nt [id number] CHUCKIE DUBON [id number] [facility] Flexiant [id number] 2016-Flynn Smith PO PLAN PLAN nt Po anna x [phone] (Home) [id number] [address] [place] [address] documented as of this encounter
--- OUTSIDE RECORDS SUMMARY | 2020-11-15 13:48 | XMS REPORT | Summary of Care ---
:1950 Author Organization [facility] Address [address] [place] [address] Care Team Providers Name Role Phone Eder Coyle MD Primary Care Provider [phone] Reason for Visit Reason Comments New Patient Arthritis of both knees, and swelling (Routine) Status Reason Specialty Diagnoses / Referred By Referred To Procedures Contact Contact Authorized Orthopedic Surgery Diagnoses Arthritis of both knees Eder Coyle Craig Procedures CONSULT/REFERRAL ORTHOPAEDIC SURGERY MD Taz Salgado MD [address] Faina arias [facility] [place] [phone] Phone: Fax: Encounter Details Date Type Department Care Team Description 10/05/2020 Office Visit [facility] Orthopaedic Joel Hercules P ain in both knees, Surgery- Hans Mcghee MD unspecified chronicity [address] [facility] Donny Allen rry (Primary Dx) [address] [facility] [address] [address] [place], [place] [phone] Allergies Active Allergy Reactions Severity Noted [...] with No / Unsure 10/05/2020 8:58 AM STOCK TRADER someone who was confirmed or suspected to have Coronavirus / COVID-19? documented as of this encounter Last Filed Vital Signs Vital Sign Reading Time Taken Comments Blood Pressure 142/76 10/05/2020 10:19 AM STOCK TRADER Pulse 64 10/05/2020 10:15 AM STOCK TRADER Temperature - - Respiratory Rate - - Oxygen Saturation - - Inhaled Oxygen Concentration - - Weight 94.3 kg (208 lb) 10/05/2020 10:15 AM STOCK TRADER Height 162.6 cm (5' 4") 10/05/2020 10:15 AM STOCK TRADER Body Mass Index 35.7 10/05/2020 10:15 AM STOCK TRADER documented in this encounter Progress Notes Joel Hercules MD - 10/05/2020 10:15 AM CST Cc: Chief Complaint Patient presents with New Patient Arthritis of both knees, and swelling New Visit Patient is complaining of bilateral knee pain and swelling. She is aware that she has arthritis in both knees. Injury Mechanism: Patient tripped over a cash posting representative when building a fence. DOI 09/14/2020 Sera [...] Surgeon: Vashti Ibrahim MD; Location: [facility] HB INSERT/PLACE HEART CATHETER 2015 HYSTERECTOMY full KNEE ARTHROSCOPY Bilateral 1996, 2002 [place] PATIENT HAS A CORONARY ARTERY STENT 08/29/2016 [...] file Gets together: Not on file Attends confucianist service: Not on file Active member of [...] Visit Urology Esperanza Hector M D [address] [facility] [address] [place] [address] [phone] 11/07/2020 Office Visit Urology Sayra Nguyen FNP [address] [facility] [address] [place], [place] [address] Health Maintenance Due Date [...] e / Group Dates MEDICARE MEDICARE PART [id number] 2016-[place] [phone] P. [address]. ANNA X Medicare A & B nt [id number] CHUCKIE DUBON [phone] [facility] Runfaces [id number] 2016-[place]nn Smith PO PLAN PLAN nt Po anna x [phone] (Home) [address] [address] [place] [address] documented as of this encounter
--- NOTE | 2020-11-15 14:24 | RAD REPORT ---
EXAM DESCRIPTION: CT - Head Brain Wo Cont - 11/15/2020 2:16 pm CLINICAL HISTORY: DIZZINESS, fever, nausea COMPARISON: Sinus Wo Cont dated 03/25/2019 TECHNIQUE: Axial 5 mm thick images of the head were obtained without IV contrast. All CT scans are performed using dose optimization technique as appropriate and may include automated exposure control or mA/KV adjustment according to patient size. FINDINGS: No intracranial hemorrhage, mass, edema or shift of mid-line structures. No acute infarcti on changes seen. No abnormal extra-axial fluid collections. Ventricles are normal. Mastoid air cells and visualized portions of the paranasal sinuses are clear. No acute bony findings. IMPRESSION: Negative non-contrast CT head examination.
[2020-11-15 14:27] LABS: Basophils % 0.6 % (0-1.3); Hematocrit 40.9 % (36.0-45.0); Lymphocytes % 23.2 % (15.3-44.8); MPV 9.8 fL (7.6-11.3); Protime INR 0.97; RBC Red Blood Cell Count 4.76 M/uL (3.86-4.86)
[2020-11-15] MEDS ORDERED: ONDANSETRON 4 MG/2 ML VIAL ONE ×2 (14:30→16:23)
[2020-11-15] MEDS ORDERED: MECLIZINE HCL 12.5 MG TAB ONE (14:30)
[2020-11-15] MEDS ORDERED: NA CHLORIDE 0.9% 500 ML ONE (14:31)
[2020-11-15 14:48] LABS: ALT/SGPT 37 U/L (12-78); AST/SGOT 25 U/L (15-37); Albumin 3.9 g/dL (3.4-5.0); Alkaline Phosphatase 83 U/L (45-117); BUN Blood Urea Nitrogen 15 mg/dL (7-18); Bicarbonate 28 mmol/L (21-32); Bilirubin Direct 0.2 mg/dL (0-0.2); Bilirubin Total 0.9 mg/dL (0.2-1.0); Glucose Level 159 mg/dL (74-106); Magnesium 2.1 mg/dL (1.8-2.4); NT PRO-BNP 266 pg/mL (<125); Potassium 3.4 mmol/L (3.5-5.1); Protein, Total 7.9 g/dL (6.4-8.2); Sodium Level 140 mmol/L (136-145); Troponin (Emerg Dept Use Only) < 0.02 ng/mL (0.0-0.045)
--- NOTE | 2020-11-15 15:15 | RAD REPORT ---
EXAM DESCRIPTION: CT - Neck Angio - 11/15/2020 3:05 pm CLINICAL HISTORY: dizziness TECHNIQUE: During dynamic enhancement using nonionic IV contrast, axial 2 mm thick images of the nec k were obtained. Sagittal and axial reconstruction images were generated using MIP technique and revi ewed. All CT scans are performed using dose optimization technique as appropriate and may include automated exposure control or mA/KV adjustment according to patient size. FINDINGS: No aneurysm or vascular malformation identified. No carotid or vertebral dissection. No aortic arch or great vessel origin abnormality seen. Vertebral artery origins unremarkable as well . No stenosis, vasculitis or other significant carotid artery finding. No focal abnormality of either vertebral artery. Basilar artery is normal. The left internal carotid artery and right common caroti d artery are tortuous. IMPRESSION: Negative CT angio neck examination for acute or significant finding.
--- NOTE | 2020-11-15 15:17 | RAD REPORT ---
EXAM DESCRIPTION: CT - Head angio - 11/15/2020 3:05 pm CLINICAL HISTORY: DIZZINESS TECHNIQUE: During dynamic enhancement using nonionic IV contrast, axial 1 millimeter thick images of the head were obtained. Sagittal and axial reconstruction images were generated using MIP technique and reviewed. All CT scans are performed using dose optimization technique as appropriate and may include automated exposure control or mA/KV adjustment according to patient size. COMPARISON: CT neck same date, CT head same date FINDINGS: No aneurysm or vascular malformation identified. Major venous sinuses are patent. No stenosis, named branch occlusion, vasculitis or other significant vascular finding identifiable. P atient has normal variant absence of the right posterior cerebral artery P1 segment with a large righ t posterior communicating artery. Left posterior communicating artery is patent. Basilar artery is sm all in size. This is not unexpected given the right DISTRIBUTION CENTER ASSISTANT supply from the anterior circulation. IMPRESSION: Negative CT angio head examination for acute or significant finding.
--- NOTE | 2020-11-15 15:26 | RAD REPORT ---
EXAM DESCRIPTION: RAD - Chest Single View - 11/15/2020 2:32 pm CLINICAL HISTORY: vomiting, hypertension COMPARISON: June 2016 TECHNIQUE: AP portable chest image was obtained 11/15/2020 2:32 pm . FINDINGS: Lung volumes are low accentuating bibasilar lung markings. No dense consolidation or mass. No significant failure or volume overload. Heart and vasculature are accentuated by the low lung vol umes. Significant failure or volume overload are doubtful. No measurable pleural effusion and no pneu mothorax. No acute bony abnormality seen. No acute aortic findings suspected. IMPRESSION: Limited shallow inspiration exam without acute cardiopulmonary finding.
[2020-11-15] MEDS ORDERED: DIAZEPAM 10 MG/2 ML INJ SYRINGE ONE (16:23)
[2020-11-15 16:30] LABS: Urine Blood TRACE (NEG); Urine Glucose NEGATIVE (NEG); Urine Protein NEGATIVE (NEG); Urine pH 8.5 (5.0-7.0)
--- NOTE | 2020-11-15 18:38 | EDPHYS ---
Physician Documentation [facility] Name: Sera Min Age: 70 yrs Sex: Female : 1950 Arrival Date: 11/15/2020 Time: 13:29 Bed 6 Private MD: ED Physician Leonidas Coyle HPI: 11/15 13:39 This 70 yrs old Female presents to ER via EMS with complaints of SWEATING, jmm Nausea. 14:36 Onset: The symptoms/episode began/occurred acutely, this morning. Modifying factors: jmm The symptoms are alleviated by closing eyes, the symptoms are aggravated by movement of head, standing up, changing position. Associated signs and symptoms: Pertinent positives: nausea, vomiting. The patient has experienced a previous episode. Historical: - Allergies: 13:32 Codeine; bp - Home Meds: 13:32 Unable to obtain [Active]; bp - PMHx: 13:32 Hypertension; bp - Immunization history:: Adult Immunizations unknown. - Social history:: Smoking status: unknown. ROS: 14:36 Constitutional: Negative for fever, chills, and weight loss, Eyes: Negative for injury, jmm pain, redness, and discharge, Cardiovascular: Negative for chest pain, palpitations, and edema, Respiratory: Negative for shortness of breath, cough, wheezing, and pleuritic chest pain. 14:36 Abdomen/GI: Positive for nausea and vomiting. 14:36 Neuro: Positive for dizziness. 14:36 All other systems are negative. Exam: 14:36 Constitutional: This is a well developed, well nourished patient who is awake, alert, jmm and in no acute distress. Head/Face: atraumatic. 14:36 ENT: Moist Mucus Membranes Neck: Trachea midline, Supple Chest/axilla: Normal chest wall appearance and motion. Cardiovascular: Regular rate and rhythm. No edema appreciated Respiratory: Normal respirations, no respiratory distress appreciated Abdomen/GI: Non distended, soft Back: Normal ROM Skin: General appearance color normal MS/ Extremity: Moves all extremities, no obvious deformities appreciated, no edema noted to the lower extremities 14:36 Eyes: Nystagmus: 14:36 Neuro: Orientation: is normal, Mentation: is normal, Memory: is normal, Cerebellar function: normal finger to nose testing, heel to still testing is normal. 14:36 Psych: Behavior/mood is pleasant, cooperative. 14:41 ECG was reviewed by the Attending Physician. [facility] Vital Signs: 13:30 BP 156 / 68; Pulse 76; Resp 18; Temp 98; Pulse Ox 98% ; bp 14:30 BP 159 / 69; Pulse 58; Resp 17; Pulse Ox 97% ; bp 16:22 BP 114 / 54; Pulse 65; Resp 17; Pulse Ox 96% ; bp 17:20 BP 103 / 54; Pulse 66; Resp 17; Pulse Ox 97% ; rb3 18:28 BP 144 / 60; Pulse 69; Resp 24; Temp 98.1(O); Pulse Ox 97% on R/A; mh5 19:30 BP 126 / 45; Pulse 69; Resp 17; Pulse Ox 99% on R/A; rv 20:30 BP 147 / 69; Pulse 67; Resp 16; Pulse Ox 98% on R/A; rv MDM: 13:49 Patient medically screened. [facility] 18:31 Data reviewed: vital signs, nurses notes. Counseling: I had a detailed discussion with [facility] the patient and/or guardian regarding: the historical points, exam findings, and any diagnostic results supporting the discharge/admit diagnosis, lab results, radiology results, the need for further work-up and treatment in the hospital. ED course: Abnormal ekg, unable to ambulate. Will admit for fall risk, abnormal ekg, vertigo. 11/15 13:39 Order name: Basic Metabolic Panel; Complete Time: 15:00 snw 11/15 13:39 Order name: CBC with Diff; Complete Time: 14:34 snw 11/15 13:39 Order name: LFT's; Complete Time: 15:00 snw 11/15 13:39 Order name: Magnesium; Complete Time: 15:00 snw 11/15 13:39 Order name: NT PRO-BNP; Complete Time: 15:00 snw 11/15 13:39 Order name: PT-INR; Complete Time: 14:34 snw 11/15 13:39 Order name: Troponin (emerg Dept Use Only); Complete Time: 15:00 snw 11/15 16:17 Order name: Urine Dipstick--Ancillary (enter results); Complete Time: 16:31 bd 11/15 17:29 Order name: Troponin (emerg Dept Use Only); Complete Time: 18:21 [facility] 11/15 19:02 Order name: COVID-19 aa5 11/15 21:24 Order name: SARS-COV-2 RT PCR; Complete Time: 21:43 EDNE 11/15 22:46 Order name: Troponin I; Complete Time: 23:10 EDNE 11/16 06:02 Order name: CBC with Automated Diff EDNE 11/16 06:03 Order name: Basic Metabolic Panel EDNE 11/15 13:39 Order name: XRAY Chest (1 view); Complete Time: 15:29 snw 11/15 13:39 Order name: EKG; Complete Time: 13:39 snw 11/15 13:51 Order name: CT Head Brain wo Cont; Complete Time: 14:29 [facility] 11/15 14:30 Order name: CT Head Angio; Complete Time: 15:19 [facility] 11/15 14:30 Order name: CT Neck Angio; Complete Time: 15:19 [facility] 11/15 16:18 Order name: MRI - Brain Wo Cont [facility] 11/15 19:43 Order name: MRI; Complete Time: 19:43 EDNE 11/16 06:03 Order name: Lipid Profile EDNE 11/16 06:07 Order name: Troponin I EDNE 11/16 07:27 Order name: Hemoglobin A1c [facility] 11/16 12:02 Order name: Diet Heart Healthy; Complete Time: 12:18 ph 11/15 13:39 Order name: Cardiac monitoring; Complete Time: 13:56 snw 11/15 13:39 Order name: EKG - Nurse/Tech; Complete Time: 14:40 snw 11/15 13:39 Order name: IV Saline Lock; Complete Time: 14:12 snw 11/15 13:39 Order name: Labs collected and sent; Complete Time: 14:12 snw 11/15 13:39 Order name: O2 Per Protocol; Complete Time: 13:56 snw 11/15 13:39 Order name: O2 Sat Monitoring; Complete Time: 13:56 snw 11/15 15:11 Order name: Misc. Order: help with restroom; Complete Time: 15:39 jmm EC:41 Rate is 59 beats/min. Rhythm is regular. Left axis deviation noted. DE interval is jmm normal. QRS interval is normal. QT interval is normal. No Q waves. T waves are Inverted in lead aVL. No ST changes noted. Reviewed by me. Administered Medications: 14:15 Drug: NS 0.9% 500 ml Route: IV; Rate: bolus; Site: right antecubital; bp 20:45 Follow up: IV Status: Completed infusion; IV Intake: 500ml rv 14:15 Drug: Meclizine 50 mg Route: PO; bp 15:46 Follow up: Response: No adverse reaction bp 14:15 Drug: Zofran (Ondansetron) 4 mg Route: IVP; Site: right antecubital; bp 15:46 Follow up: Response: No adverse reaction bp 16:10 Drug: Valium 2 mg Route: IVP; Site: right antecubital; bp 20:45 Follow up: Response: No adverse reaction rv 16:10 Drug: Zofran (Ondansetron) 4 mg Route: IVP; Site: right antecubital; bp 20:45 Follow up: Response: No adverse reaction rv Disposition: 11/16 15:02 Co-signature as Attending Physician, Leonidas Coyle MD I agree with the assessment and kdr plan of care. Disposition: 11/15/20 18:38 Hospitalization ordered by Andrei Romero for Observation. Preliminary diagnosis are Abnormal electrocardiogram [ECG] [EKG], Ataxia, unspecified, Vertigo, Chest pain, unspecified, Intractable Nausea/Vomiting. - Bed requested for Telemetry/MedSurg (observation). - Status is Observation. ph - Condition is Stable. - Problem is new. - Symptoms are unchanged. Signatures: Dispatcher [employer] EDMS Ashley Fernandes RN RN dw Rittger, Kevin, MD MD kdr Waters, Shelly, SALES AND DISTRIBUTION CLERK-C SALES AND DISTRIBUTION CLERK-Jayw Paul Dee PA PA m lAlyssa Kellogg RN RN ph Gurjit Dowell RN RN Nay Quintana Ronaldo RN rv Corrections: (The following items were deleted from the chart) 11/15 18:43 18:38 Hospitalization Ordered by Anrdei Romero for Observation. Preliminary diagnosis jmm is Abnormal electrocardiogram [ECG] [EKG]; Ataxia, unspecified; Vertigo. Bed requested for Telemetry/MedSurg (observation). Status is Observation. Condition is Stable. Problem is new. Symptoms are unchanged. jmm 20:50 18:43 11/15/2020 18:38 Hospitalization Ordered by Andrei Romero for Observation. dw Preliminary diagnosis is Abnormal electrocardiogram [ECG] [EKG]; Ataxia, unspecified; Vertigo; Chest pain, unspecified; Intractable Nausea/Vomiting. Bed requested for Telemetry/MedSurg (observation). Status is Observation. Condition is Stable. Problem is new. Symptoms are unchanged. [facility] 11/16 13:03 11/15 20:50 11/15/2020 18:38 Hospitalization Ordered by Andrei Romero for Observation. eb Preliminary diagnosis is Abnormal electrocardiogram [ECG] [EKG]; Ataxia, unspecified; Vertigo; Chest pain, unspecified; Intractable Nausea/Vomiting. Bed requested for [facility] ER HOLD. Status is Observation. Condition is Stable. Problem is new. Symptoms are unchanged. 11/16 13:30 13:03 11/15/2020 18:38 Hospitalization Ordered by Andrei Romero for Observation. ph Preliminary diagnosis is Abnormal electrocardiogram [ECG] [EKG]; Ataxia, unspecified; Vertigo; Chest pain, unspecified; Intractable Nausea/Vomiting. Bed requested for Telemetry/MedSurg (observation). Status is Observation. Condition is Stable. Problem is new. Symptoms are unchanged. eb
--- NOTE | 2020-11-15 18:38 | ER ---
Nurse's Notes [facility] Name: Sera Min Age: 70 yrs Sex: Female : 1950 Arrival Date: 11/15/2020 Time: 13:29 Bed 6 Private MD: Diagnosis: Abnormal electrocardiogram [ECG] [EKG];Ataxia, unspecified;Vertigo;Chest pain, unspecified;Intractable Nausea/Vomiting Presentation: 11/15 13:30 Chief complaint: EMS states: SWEATING AND NAUSEA. Coronavirus screen: fever, nausea, bp Client presents with at least one sign or symptom that may indicate coronavirus-19. Standard/surgical mask placed on the client. Provider contacted for isolation considerations. Ebola Screen: No symptoms or risks identified at this time. Initial Sepsis Screen: Does the patient meet any 2 criteria? No. Patient's initial sepsis screen is negative. Does the patient have a suspected source of infection? No. Patient's initial sepsis screen is negative. Risk Assessment: Do you want to hurt yourself or someone else? Patient reports no desire to harm self or others. Onset of symptoms was November 15, 2020 at 08:00. Care prior to arrival: Medication(s) given: zofran 4 mg, IV initiated. 20 GA, in the left hand, Glucose check: 138. 13:30 Method Of Arrival: EMS: [facility] bp 13:30 Acuity: LUCIANA 3 bp Triage Assessment: 13:32 General: Appears distressed, uncomfortable, obese, Behavior is cooperative, appropriate bp for age, anxious. Pain: Denies pain. EENT: No deficits noted. Neuro: Level of Consciousness is awake, alert, obeys commands, Oriented to person, place, time, situation, Appropriate for age. Cardiovascular: Rhythm is sinus rhythm. Respiratory: No deficits noted. GI: Reports nausea, vomiting. : No signs and/or symptoms were reported regarding the genitourinary system. Derm: No deficits noted. Musculoskeletal: No deficits noted. Historical: - Allergies: 13:32 Codeine; bp - Home Meds: 13:32 Unable to obtain [Active]; bp - PMHx: 13:32 Hypertension; bp - Immunization history:: Adult Immunizations unknown. - Social history:: Smoking status: unknown. Screenin:34 Abuse screen: Denies threats or abuse. Denies injuries from another. Nutritional bp screening: No deficits noted. Tuberculosis screening: No symptoms or risk factors identified. Fall Risk None identified. Assessment: 13:33 General: SEE TRIAGE NOTE. GI: Pt is actively vomiting bile. bp 14:30 Reassessment: Patient appears in no apparent distress at this time. Patient and/or bp family updated on plan of care and expected duration. Pain level reassessed. PT RETURNED TO CT. NO FURTHER VOMITING. 16:25 Reassessment: Patient appears in no apparent distress at this time. Patient and/or bp family updated on plan of care and expected duration. Pain level reassessed. Patient is alert, oriented x 3, equal unlabored respirations, skin warm/dry/pink. MRI PENDING. 17:34 Reassessment: Patient appears in no apparent distress at this time. Patient and/or bp family updated on plan of care and expected duration. Pain level reassessed. Patient is alert, oriented x 3, equal unlabored respirations, skin warm/dry/pink. REPEAT CARDIAC ENZYMES IN PROCESS. MRI PENDING. Vital Signs: 13:30 BP 156 / 68; Pulse 76; Resp 18; Temp 98; Pulse Ox 98% ; bp 14:30 BP 159 / 69; Pulse 58; Resp 17; Pulse Ox 97% ; bp 16:22 BP 114 / 54; Pulse 65; Resp 17; Pulse Ox 96% ; bp 17:20 BP 103 / 54; Pulse 66; Resp 17; Pulse Ox 97% ; rb3 18:28 BP 144 / 60; Pulse 69; Resp 24; Temp 98.1(O); Pulse Ox 97% on R/A; mh5 19:30 BP 126 / 45; Pulse 69; Resp 17; Pulse Ox 99% on R/A; rv 20:30 BP 147 / 69; Pulse 67; Resp 16; Pulse Ox 98% on R/A; rv ED Course: 13:29 Patient arrived in ED. bp 13:31 Triage completed. bp 13:32 Arm band placed on. bp 13:34 Gurjit Dowell, OBI is Primary Nurse. bp 13:34 Patient has correct armband on for positive identification. Bed in low position. Call bp light in reach. Side rails up X2. 13:34 Maintain EMS IV. Dressing intact. Good blood return noted. Site clean \T\ dry. Gauge \T\ bp site: 20 GAUGE LEFT HAND. 13:41 Mickail, Paul, PA is PHCP. [facility] 13:41 Leonidas Coyle MD is Attending Physician. jmm 14:15 CT completed. Patient tolerated procedure well. Patient moved to CT via stretcher. sw Patient moved back from CT. 14:15 CT Head Brain wo Cont In Process Unspecified. EDMS 14:31 XRAY Chest (1 view) In Process Unspecified. EDMS 15:05 CT Head Angio In Process Unspecified. EDMS 15:05 CT Neck Angio In Process Unspecified. EDMS 18:37 Andrei Romero is Hospitalizing Provider. jmm 21:33 No provider procedures requiring assistance completed. IV is patent, with fluids rv infusing freely, Patient admitted, IV remains in place. 11/16 13:26 Primary Nurse role handed off by Gurjit Dowell, OBI eb Administered Medications: 11/15 14:15 Drug: NS 0.9% 500 ml Route: IV; Rate: bolus; Site: right antecubital; bp 20:45 Follow up: IV Status: Completed infusion; IV Intake: 500ml rv 14:15 Drug: Meclizine 50 mg Route: PO; bp 15:46 Follow up: Response: No adverse reaction bp 14:15 Drug: Zofran (Ondansetron) 4 mg Route: IVP; Site: right antecubital; bp 15:46 Follow up: Response: No adverse reaction bp 16:10 Drug: Valium 2 mg Route: IVP; Site: right antecubital; bp 20:45 Follow up: Response: No adverse reaction rv 16:10 Drug: Zofran (Ondansetron) 4 mg Route: IVP; Site: right antecubital; bp 20:45 Follow up: Response: No adverse reaction rv Intake: 20:45 IV: 500ml; Total: 500ml. rv Outcome: 18:38 Decision to Hospitalize by Provider. jmm 21:33 Admitted to ER Hold. Please see [facility] for further documentation. rv 21:33 Condition: good 21:33 Instructed on the need for admit. 11/16 13:30 Patient left the ED. ph Signatures: Dispatcher [employer] EDMS Paul Dee PA PA jmm Hall, Patricia, RN RN Loren Mckeon [facility] Gurjit Dowell, RN RN bp Nay Alcantar Ronaldo, RN RN rv Edda Young, RN RN rb3
--- NOTE | 2020-11-15 19:42 | RAD REPORT ---
EXAM DESCRIPTION: MRI - Brain Wo Cont - 11/15/2020 7:31 pm CLINICAL HISTORY: DIZZINESS COMPARISON: No comparisons TECHNIQUE: Sagittal T1-weighted images were obtained along with axial PD, heavily T2-weighted and T2 -FLAIR images. Axial DWI and ADC mapping sequences were also obtained along with coronal heavily T2-w eighted images. Coronal T2 hemo sequence obtained. FINDINGS: No intracranial hemorrhage, mass or acute infarction. There is no edema or shift of midlin e structures. No extra-axial fluid collections. Jimenez-matter/white matter junction is preserved. Signa l voids are seen as a normal finding in the major intracranial vessels. No measurable atrophy or correspondence review clerk rubén ischemic change. No globe or orbital content abnormality seen. No sella or supra sella abnormality. Mastoid air cells and paranasal sinuses are clear. IMPRESSION: Negative non-contrast MRI of the Brain for acute or significant finding.
[2020-11-15] MEDS ORDERED: ONDANSETRON 4 MG/2 ML VIAL IV PRN (21:40)
[2020-11-15] MEDS ORDERED: MORPHINE 4 MG/ML SYR IV PRN (21:40)
[2020-11-15] MEDS ORDERED: ACETAMINOPHEN 500 MG TAB PO PRN (21:40)
[2020-11-15] MEDS ORDERED: MECLIZINE HCL 12.5 MG TAB PO PRN (21:40)
[2020-11-15] MEDS ORDERED: HYDRALAZINE HCL 20 MG/ML VIAL IV PRN (21:40)
[2020-11-15 22:07] VITALS: BMI 35.3
--- NOTE | 2020-11-16 02:32 | P.HP ---
Certification for Inpatient Patient admitted to: Observation With expected LOS: <2 Midnights Patient will require the following post-hospital care: None Practitioner: I am a practitioner with admitting privileges, knowledge of patient current condition, hospital course, and medical plan of care. Services: Services provided to patient in accordance with Admission requirements found in Title 42 Section 412.3 of the Code of Federal Regulations <Live Ye - Last Filed: 11/16/20 02:27> Patient History Date of Service: 11/16/20 Primary Care Provider: Adela Reason for admission: Chest Pain, Dizziness, Ataxia History of Present Illness: This is a 70-year-old female that presented to the emergency room today for acute episodes of sweating along with nausea, chest pain, dizziness. Patient with a history of hypertension. Patient denies having symptoms as such in the past like this. Patient was worked up in the emergency room for chest pain, dizziness, unsteady gait. No acute laboratory findings noted other than mild hypokalemia. X2 troponins both negative. MRI, CTA, CT, chest x-ray all negative for acute findings including stroke, mass, bleed. Patient was held in the emergency room to see if she would improve after being medicated but still was having unsteady gait. Medicine was consulted at that time for admission for the chest pain, dizziness, ataxia. Home medications list reviewed: Yes - Past Medical/Surgical History Has patient received pneumonia vaccine in the past: No Diabetic: No - Social History Smoking Status: Never smoker Smoking therapy provided: No Alcohol use: No CD- Drugs: No Caffeine use: Yes Place of Residence: Home <Live Ye - Last Filed: 11/16/20 02:27> Date of Service: 11/16/20 <hector pabon - Last Filed: 11/16/20 15:56> Allergies codeine [Codeine] Adverse Reaction (Verified 04/07/13 09:38) hallucinates Home Medications: Aspirin 81 mg PO DAILY 04/07/13 Atorvastatin Calcium [Lipitor*] 20 mg PO BEDTIME 04/07/13 Lisinopril/Hydrochlorothiazide [Zestoretic 20-12.5 Tablet] 1 each PO DAILY 04/07/13 Diclofenac Na [Voltaren D.r*] 75 mg PO DAILY 11/16/20 Esomeprazole Magnesium [Nexium 24Hr] 20 mg PO DAILY 11/16/20 Fluticasone [Flonase 50MCG Nasal [place]*] 2 sprays NS DAILY 11/16/20 Metoprolol Tartrate [Lopressor*] 25 mg PO BID 11/16/20 Trospium Chloride [Sanctura] 20 mg PO DAILY 11/16/20 Review of Systems General: Sweats Eyes: Unremarkable ENT: Unremarkable Respiratory: Unremarkable Cardiovascular: Chest Pain Gastrointestinal: Nausea, Vomiting Genitourinary: Unremarkable Musculoskeletal: Unremarkable Integumentary: Unremarkable Neurological: Incoordination, As per HPI Lymphatics: Unremarkable <Live Ye - Last Filed: 11/16/20 02:27> Physical Examination - Vital Signs Temperature: 98 F Blood Pressure: 156/68 Pulse: 77 Respirations: 18 Pulse Ox (%): 98 (Room air) - Physical Exam General: Alert, In no apparent distress, Oriented x3, Cooperative HEENT: PERRLA, Mucous membr. moist/pink, EOMI Neck: Supple, 2+ carotid pulse no bruit, No Thyromegaly Respiratory: Clear to auscultation bilaterally, Normal air movement Cardiovascular: No edema, Normal pulses, Regular rate/rhythm, Normal S1 S2, No gallops, No rubs, No murmurs, Edema Capillary refill: <2 Seconds Gastrointestinal: Normal bowel sounds, Soft and benign, Non-distended, No ascites, No tenderness, No masses, No rebound, No guarding, Other (Obese) Musculoskeletal: No clubbing, No swelling, No contractures, No erythema, No tenderness, No warmth Integumentary: No rashes, No breakdown, No significant lesion, No tenderness/swelling, No erythema, No warmth, No cyanosis Neurological: Normal speech, Normal strength at 5/5 x4 extr, Normal tone, Sensation intact, Cranial nerves 3-12 intact, Normal affect Lymphatics: No axilla or inguinal lymphadenopathy - Studies Laboratory Data (last 24 hrs) 11/15/20 14:11: PT 11.5, INR 0.97 11/15/20 14:11: WBC 4.5, Hgb 13.8, Hct 40.9, Plt Count 150 L 11/15/20 14:11: Sodium 140, Potassium 3.4 L, BUN 15, Creatinine 1.02, Glucose 159 H, Magnesium 2.1, Total Bilirubin 0.9, AST 25, ALT 37, Alkaline Phosphatase 83 <Live Ye - Last Filed: 11/16/20 02:27> Assessment and Plan - Problems (Diagnosis) (1) Vertigo Current Visit: Yes Status: Acute (2) Chest pain Current Visit: Yes Status: Acute Qualifiers: Chest pain type: unspecified Qualified Code(s): R07.9 - Chest pain, unspecified (3) Intractable nausea and vomiting Current Visit: Yes Status: Acute (4) Unsteady gait when walking Current Visit: Yes Status: Acute (5) Hypertension Current Visit: Yes Status: Chronic Qualifiers: Hypertension type: essential hypertension Qualified Code(s): I10 - Essential (primary) hypertension - Plan 1. Patient be monitored over the next 24 hr to ensure she remained stable and that dizziness and chest pain improve along with her intractable nausea 2. Neuro checks throughout the next 24 hr 3. Patient will be medicated as needed for the dizziness and chest pain 4. Serial troponins will be drawn for the chest pain 5. Light hydration via IV 6. Recheck labs electrolytes in the morning. Replace any electrolytes as needed. Discharge Plan: Home Plan to discharge in: 24 Hours - Advance Directives Does patient have a Living Will: No Does patient have a Durable POA for Healthcare: No - Code Status/Comfort Care Code Status Assessed: No Critical Care: No Time Spent Managing Pts Care (In Minutes): 70 <Live Ye - Last Filed: 11/16/20 02:27> Physician Review: Patient Assessed, Agree with Above Assessment and Plan Physician Review Additional Text: Dizziness. Associated diaphoresis. Workup in the ED: Unremarkable so far. Check orthostatic vitals. Trend troponin. 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 <hector pabon - Last Filed: 11/16/20 15:56>
[2020-11-16] MEDS: NA CHLORIDE 0.9% 1,000 ML IV SCH ×2 (03:00→16:20)
[2020-11-16 05:52] LABS: Absolute Lymphocytes (CBC) 1.4 K/uL (0.7-4.9); Basophils % 0.6 % (0-1.3); Hematocrit 37.3 % (36.0-45.0); Lymphocytes % 22.6 % (15.3-44.8); MPV 9.8 fL (7.6-11.3); RBC Red Blood Cell Count 4.32 M/uL (3.86-4.86)
[2020-11-16 06:03] LABS: Potassium 3.2 mmol/L (3.5-5.1)
[2020-11-16] MEDS ORDERED: ASPIRIN EC 81 MG TAB PO SCH (09:00)
[2020-11-16] MEDS ORDERED: ASPIRIN EC 81 MG TAB PO ONE (09:25)
[2020-11-16] MEDS ORDERED: POTASSIUM CL SA 10 MEQ TAB PO ONE ×2 (11:35→12:51)
[2020-11-16 12:04] VITALS: BP 140/59; TEMP 97.4
[2020-11-16 12:38] VITALS: O2SAT 96
--- NOTE | 2020-11-16 16:03 | P.DS ---
Admission Date: 11/15/20 Discharge Date: 11/16/20 Primary Care Provider: Adela Disposition: ROUTINE DISCHARGE Discharge Condition: FAIR Reason for Admission: Chest Pain, Dizziness, Ataxia Consultations: None. - Problems (1) Dizziness Current Visit: Yes Status: Acute (2) Coronary artery disease Current Visit: Yes Status: Acute (3) Abnormal EKG Current Visit: Yes Status: Acute (4) Hypertension Current Visit: Yes Status: Chronic Qualifiers: Hypertension type: essential hypertension Qualified Code(s): I10 - Essential (primary) hypertension Brief History of Present Illness: 70-year-old woman with a known history of coronary artery disease presented to the emergency department with a complaint of sudden onset of dizziness with associated diaphoresis. Patient reports almost passing out. Workup in the emergency department with CBC, blood chemistry, CT head, MRI of the brain were all unremarkable. The EKG demonstrated sinus bradycardia with left bundle branch block. She also experienced episodes of nausea and vomiting and unsteady gait. Patient was hospitalized for further management. Hospital Course: Patient placed under observation. Troponin trended negative. Serial EKG demonstrated sinus bradycardia with left bundle branch block. Patient's symptoms resolved. He was seen by PT and she ambulated without assistance with normal gait. Patient stated her dizziness has resolved. She had no orthostatic hypotension. Urine analysis showed no evidence of UTI. COVID 19 test was negative. She had a few episodes of diarrhea. Given her left bundle branch block and bradycardia, as well as her significant coronary artery disease history, discuss with Dr. Goyal who recommended outpatient follow up with him for an event monitor to rule out cardiac arrhythmia as cause of her symptoms. Patient has been informed to follow with Dr. Goyal next week Thursday11/19/2020 for arrangement for the event monitor. Her Imdur has been discontinued on discharge per Dr. Goyal 's recommendation. Vital Signs/Physical Exam: Temp Pulse Resp BP Pulse Ox 97.4 F 70 16 140/59 L 100 11/16/20 12:00 11/16/20 12:11/16/20 12:00 11/16/20 12:11/16/20 12:00 General: Alert, In no apparent distress, Oriented x3 HEENT: Mucous membr. moist/pink Neck: Supple, JVD not distended Respiratory: Clear to auscultation bilaterally, Normal air movement Cardiovascular: No edema, Regular rate/rhythm, Normal S1 S2 Gastrointestinal: Normal bowel sounds, Soft and benign, Non-distended, No tenderness Musculoskeletal: No swelling, No tenderness Integumentary: No rashes, No erythema Neurological: Normal speech, Normal strength at 5/5 x4 extr, Cranial nerves 3-12 intact Laboratory Data at Discharge: WBC 6.3 K/uL (4.3-10.9) D 11/16/20 05:20 Hgb 12.8 g/dL (12.0-15.0) 11/16/20 05:20 Hct 37.3 % (36.0-45.0) 11/16/20 05:20 Plt Count 138 K/uL (152-406) L 11/16/20 05:20 PT 11.5 SECONDS (9.5-12.5) 11/15/20 14:11 INR 0.97 11/15/20 14:11 Sodium 142 mmol/L (136-145) 11/16/20 05:20 Potassium 3.2 mmol/L (3.5-5.1) L 11/16/20 05:20 BUN 13 mg/dL (7-18) 11/16/20 05:20 Creatinine 0.80 mg/dL (0.55-1.3) 11/16/20 05:20 Glucose 97 mg/dL (74-106) 11/16/20 05:20 Magnesium 2.1 mg/dL (1.8-2.4) 11/15/20 14:11 Total Bilirubin 0.9 mg/dL (0.2-1.0) 11/15/20 14:11 AST 25 U/L (15-37) 11/15/20 14:11 ALT 37 U/L (12-78) 11/15/20 14:11 Alkaline Phosphatase 83 U/L (45-117) 11/15/20 14:11 Troponin I < 0.02 ng/mL (0.0-0.045) 11/16/20 05:20 Triglycerides 148 mg/dL (<150) 11/16/20 05:20 Cholesterol 161 mg/dL (<200) 11/16/20 05:20 HDL Cholesterol 54 mg/dL (40-60) 11/16/20 05:20 Cholesterol/HDL Ratio 2.98 11/16/20 05:20 Home Medications: Aspirin 81 mg PO DAILY 04/07/13 Atorvastatin Calcium [Lipitor*] 20 mg PO BEDTIME 04/07/13 Lisinopril/Hydrochlorothiazide [Zestoretic 20-12.5 Tablet] 1 each PO DAILY 04/07/13 Diclofenac Na [Voltaren D.r*] 75 mg PO DAILY 11/16/20 Esomeprazole Magnesium [Nexium 24Hr] 20 mg PO DAILY 11/16/20 Fluticasone [Flonase 50MCG Nasal [place]*] 2 sprays NS DAILY 11/16/20 Metoprolol Tartrate [Lopressor*] 25 mg PO BID 11/16/20 Trospium Chloride [Sanctura] 20 mg PO DAILY 11/16/20 Patient Discharge Instructions: Please call Dr. Goyal 's office at [phone] on Thursday11/19/2020 for an arrangement for event monitor. Diet: AHA Activity: Ad everton Followup: Eric Goyal MD [ACTIVE - CAN ADMIT] - (On Monday 11/19 for arrangement for event monitor.) Unknown,U [Primary Care Provider] - 1-2 Weeks
--- NOTE | 2020-11-17 14:01 | EKG ---
Test Date: 2020-11-15 Test Time: 23:03:53 Stock Roller: RV MEASUREMENT RESULTS: Intervals: Rate: 61 ND: 164 QRSD: 158 QT: 476 QTc: 479 [place]: P: 75 ND: 164 QRS: -22 T: 70 INTERPRETIVE STATEMENTS: Normal sinus rhythm Left bundle branch block Abnormal ECG Compared to ECG 11/15/2020 14:37:52 Sinus bradycardia no longer present Left-axis deviation no longer present Electronically Signed On 11-17-20 13:58:45 RESIDENTIAL SUPPORT WORKER by Eric Goyal
--- NOTE | 2020-11-17 14:03 | EKG ---
Test Date: 2020-11-15 Test Time: 14:37:52 Skeet Operator: JESUS MEASUREMENT RESULTS: Intervals: Rate: 59 MA: 180 QRSD: 168 QT: 524 QTc: 518 [place]: P: 60 MA: 180 QRS: -30 T: 67 INTERPRETIVE STATEMENTS: Sinus bradycardia Left axis deviation Left bundle branch block Abnormal ECG Compared to ECG 04/07/2013 10:27:04 Left-axis deviation now present Left bundle-branch block now present Sinus rhythm no longer present Ventricular premature complex(es) no longer present Myocardial infarct finding no longer present Electronically Signed On 11-17-20 13:58:59 PLANT INSPECTOR by Eric Goyal
== END 2020-11-16 17:11 | disposition home or self-care (01) ==
LOC: ER 13:22 → ERHOLD 19:02 → 2ND 11-16 13:24
PROVIDERS: ADMIT Internal Medicine; ATTEND Internal Medicine
DX: R42 Dizziness and giddiness (principal); I25.10 Atherosclerotic heart disease of native coronary artery without angina pectoris; R94.31 Abnormal electrocardiogram [ECG] [EKG]; I10 Essential (primary) hypertension; Z20.828 Contact with and (suspected) exposure to other viral communicable diseases; R11.2 Nausea with vomiting, unspecified; I44.7 Left bundle-branch block, unspecified; R00.1 Bradycardia, unspecified; Z79.82 Long term (current) use of aspirin; R07.9 Chest pain, unspecified
CPT/HCPCS: 96361; 93005 ×3; 85025 ×2; 80048 ×2; 36415; 83735; 85610; 80061; 80076; 84443; 81003; 83036; 84484 ×4; 83880; 70450; 70496; 70498; 71045; 70551; 97112; 97116; 97161; 96375; 96374; 99285; U0003; Q9967; J3360; J7040; J2405 ×2

== ENCOUNTER 2023-05-22 08:11 | Observation (INO) | payer OTHER ==
--- OUTSIDE RECORDS SUMMARY | 2023-05-22 08:18 | XMS REPORT | Continuity of Care Document ---
:1950 Author Organization [facility] t Address [address] [place] [address] Care Team Providers Name Role Phone UNKNOWN, REFFERING Primary Care Physician Unavailable MINNIE MARTINEZ Attending Clinician Unavailable Mohamud_Lucie Attending Clinician Unavailable Jimbo Hansen MD Attending Clinician 2, [facility] Attending Clinician Unavailable Doctor Unassigned, Abanda Attending Clinician Unavailable Minnie Martinez MD Attending Clinician CHAU_Debby_Jacob Attending Clinician Unavailable Sadi Guardado Attending Clinician [phone] RADU UREÑA Attending Clinician Unavailable ROBERTH RAMOS Attending Clinician Unavailable Nurse, Adc Pob Immunization Attending Clinician Unavailable Roberth Ramos DO Attending Clinician GENET DAVID Attending Clinician Unavailable Marcia Hill Attending Clinician Diamante Puri MD Attending Clinician DIAMANTE PURI Attending Clinician Unavailable Esperanza Hector MD Attending Clinician ESPERANZA HECTOR Attending Clinician Unavailable Pob, [facility] Main Attending Clinician Unavailable Paul Davenport Attending Clinician PAUL BRITO Attending Clinician Unavailable Lilliam Garcia MD Attending Clinician LILLIAM GARCIA Attending Clinician Unavailable LIDIA OATES Attending Clinician Unavailable Leonel Ortega MD Attending Clinician LEONEL ORTEGA Attending Clinician Unavailable Gramm Sunny FRANCE Attending Clinician GRAMMSUNNY Attending Clinician Unavailable VISIT, NURSE ST MAMMO Attending Clinician Unavailable CRISTIAN LOVE M.D. Attending Clinician Unavailable Cristian Love Attending Clinician Glendy Valerio Attending Clinician TISHA DAVIS Attending Clinician Unavailable Mohamud_Lucie Admitting Clinician Unavailable JIMBO HANSEN Admitting Clinician Unavailable MINNIE MARTINEZ Admitting Clinician Unavailable CHAU_Debby_Sadi_ Admitting Clinician Unavailable TISHA DAVIS Admitting Clinician Unavailable Payers Payer Name Policy Type Policy Number Effective Date Expiration Date S magdi MEDICARE PART A [id number] 2016 \T\ B 00:00:00 [facility] [employer] [id number] 2016 00:00:00 CIGNA - [facility] [id number] 1989 HEALTH PLAN (PPO) 00:00:00 [place] B-[place]: [id number] 2016 [employer] 00:00:00 [place] POSTAL [id number] 2016 [employer] UNION 00:00:00 HEALTH PLAN MULTIPLAN GENERIC [id number] 2016 00:00:00 Problems Condition Condition Condition Status Onset Resolution Last Treating Co mments Source Name Details Category Date Date Treatment Clinician Date Pain of Pain of Problem Active Jeri right knee Right Knee 6-03 Or thope joint Joint 00:00: dic 00 Sports Medicin e Abdominal Abdominal Disease Active Uni vers pain pain 4-25 ity of 00:00: [place] 00 Medical Branch Central Central Disease Active Univers chest pain chest pain 4-25 it y of 00:00: [place] 00 [facility] Branch Essential Essential Disease Active Uni vers hypertensi hypertensi 4-25 it y of on on 00:00: [place] 00 Medical Branch Hyperlipid Hyperlipid Disease Active U nivers emia emia 4-25 ity of 00:00: [place] 00 Medical Branch Polyp of Polyp of Disease Active Unive rs gallbladde gallbladde 4-25 it y of r r 00:00: 00 Medical Branch Right Right Disease Active Univers upper upper 4-25 ity of quadrant quadrant 00:00: [place] pain pain 00 Medical Branch 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 Total 04-24 Or thope knee joint Knee Joint 00:00: di c 00 Sports Medicin e Patellofem Patellofem Problem Active A zalea oral oral 03-25 Orthope osteoarthr Osteoarthr 00:00: di c itis itis 00 Sports Medicin e Heart Heart Disease Active Univers block block 2-23 ity of 00:00: [place] [facility] Coronary Coronary Disease Active Unive rs arterioscl arterioscl 927 it y of erosis erosis 00:00: [place] 00 Medical Branch Chronic Chronic Problem Active 2020-05-03 Me armand constipati constipati 02-27 23:48:53 l on on 00:00: [place] (disorder) (disorder) 00 Active 02/27/2014 Problem 05/03/2020 Data migrated from [employer] on 04/28/15. Medical Group Gastroesop Gastroeso Problem Active 2020-05-03 Memoria hageal phageal 02-27 23:48:53 l reflux reflux 00:00: Oskar disease disease 00 (disorder) (disorder) Active 02/27/2014 Problem 05/03/2020 Data migrated from [employer] on 04/28/15. 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 Medical Group Fatigue Fatigue Problem Active 2020-05-03 Me moria (finding) (finding) 02-23 23:48:53 l Active 00:00: [place] 02/23/2013 00 Problem 05/03/2020 Data migrated from [employer] on 04/28/15. Medical Group Incontinen Incontine Problem Active 2020-05-03 Memoria ce nce 02-23 23:48:53 l (finding) (finding) 00:00: [place] Active 00 02/23/2013 Problem 05/03/2020 Data migrated from [employer] on 04/28/15. Medical Group Menopausal Menopausa Problem Active 2020-05-03 Memoria syndrome l syndrome 02-23 23:48:53 l (disorder) (disorder) 00:00: He rmann Active 00 02/23/2013 Problem 05/03/2020 Data migrated from [employer] on 04/28/15. Medical Group Migraine Migraine Problem Active 2020-05-03 Memoria (disorder) (disorder) 08-25 23:48:53 l Active 00:00: [place] 08/25/2012 00 Problem 05/03/2020 Data migrated from [employer] on 04/28/15. Medical Group Neck pain Neck pain Problem Active 2020-05-03 Memoria (finding) (finding) 08-25 23:48:53 l Active 00:00: Oskar 08/25/2012 00 Problem 05/03/2020 Data migrated from [employer] on 04/28/15. Medical Group Numbness Numbness Problem Active 2020-05-03 Memoria of upper of upper 08-25 23:48:53 l limb limb 00:00: [place]skar (finding) (finding) 00 Active 08/25/2012 Problem 05/03/2020 Data migrated from [employer] on 04/28/15. Medical Group Encounter Encounter Problem Active [facility] for for [facility] screening screening ans mammogram mammogram for breast for breast cancer cancer Menopause Menopause Problem Active [facility] ans H/O H/O Problem Active [facility] vaginal vaginal [facility] dysplasia dysplasia ans Incontinen Incontinen Problem Active U T ce of ce of [facility] urine in urine in ans female female Depression Depression Problem Active U T [facility] ans Fatigue Fatigue Problem Active [facility] ans Vaginitis Vaginitis Problem Active 2019-02-12 Memoria (disorder) (disorder) 21:05:30 l Active Oskar Problem 02/12/2019 Medical Group Obesity Obesity Problem Active 2020-05-03 Me moria (disorder) (disorder) 23:48:53 l Active [place] Problem 05/03/2020 Medical Group Atrophic Atrophic Problem Active 2020-05-03 Memoria vaginitis vaginitis 23:48:53 l (disorder) (disorder) He rmann Active Problem 05/03/2020 Medical Group History of Past Illness Condition Condition Condition Status Onset Resolution Last Treating Co mments Source Name Details Category Date Date Treatment Clinician Date Postmenopa Postmenop Problem 2019-03-09 2019-03-09 Memoria usal ausal 03-07 21:23:05 21:23:05 l atrophic atrophic 20:37: Efrain clifton vaginitis vaginitis 00 03/07/2019 9 Medical Group Dysplasia Dysplasia Problem 2019-03-09 2019-03-09 Memoria of vagina, of vagina, 03-07 21:23:05 21:23:05 l unspecifie unspecifie 20:37: He lamont d d 00 03/07/2019 9 Medical Group Menopausal Menopausa Problem 2019-03-09 2019-03-09 Memoria and female l and 03-07 21:23:05 21:23:05 l climacteri female 20:37: Efrain clifton c states climacteri 00 c states 03/07/2019 9 Medical Group Unspecifie Unspecifi Problem [id number] 2017-11-05 Memoria d ed 2-04 01:00:48 01:00:48 l menopausal menopausal 16:54: He lamont and and 00 perimenopa perimenopa usal usal disorder disorder 11/02/2017 11/05/2017 Medical Group Allergies, Adverse Reactions, Alerts Allergy Allergy Status Severity Reaction(s) Onset Inactive Treating Comm ents Source Name Type Date Date Clinician Demerol Allergy Active Jeri to 03-25 Orthope substanc 00:00: dic e 00 Sports Medicin e CODEINE DRUG Active Unknown-Cmnt Uni vers INGREDI 7-05 ity of 00:00: [place] 00 Medical Branch MEPERIDI DRUG Active Unknown-Cmnt Un lobo NE HCL INGREDI - ity of 00:00: [place] 00 Medical Branch Codeine Propensi Active Unknown - Univ ers ty to See comments 06-03 ity of adverse 00:00: [place] reaction 00 Medical s Branch Meperidi Propensi Active Unknown - Uni vers ne Hcl ty to See comments 06-03 ity of adverse 00:00: [place] reaction 00 Medical s Branch codeine< codeine< Active Memori a sup>1</s sup>1</s l up> up> Oskar morphine Allergy Active [facility] to drug [facility] (finding ans ) Social History Social Habit Start Date Stop Date Quantity Comments Source Exposure to 2022-11-16 2022-11-26 Not sure [facility] SARS-CoV-2 00:00:00 11:09:00 [facility] (event) [place] Alcohol intake 2022-05-05 2022-05-05 0 /d [facility] 00:00:00 00:00:00 [facility] Social History 2019-03-07 2019-03-07 [facility] zara 19:58:03 19:58:03 Tobacco use and 2016-06-03 2016-06-03 Smokeless tobacco Un iversity of exposure 00:00:00 00:00:00 non-user [facility] Sex Assigned At [birth year] Universit y of 00:00:00 00:00:00 [facility] Smoking Status Start Date Stop Date Source Never smoked tobacco [facility] Medications Ordered Filled Start Stop Current Ordering Indication Dosage Frequency Signature Comments Components Source Medication Medication Date Date Medication? Clinician (SIG) Name Name sulfamethox 2022- No [id number] 1{tbl} Take 1 Univers azole-trime -02 01-10 tablet by it y of thoprim 00:00: 05:59 mouth in [place] 800-160 mg 00 :00 the Medical per tablet morning Branch and 1 tablet in the evening. Do all this for 7 days. amoxicillin 2021-11- No [id number] 1{tbl} Take 1 Univers -clavulanat 0-07 10-15 tablet by it y of e 00:00: 04:59 mouth in [place] (AUGMENTIN) 00 :00 the Medical 875-125 mg morning Branch per tablet and 1 tablet in the evening. Do all this for 7 days. estradioL 0 Yes [id number] Apply 1g Univers (ESTRACE) 3-28 vaginally ity o f 0.01 % (0.1 00:00: at bedtime [place] mg/gram) 00 every Medical vaginal night for Branch cream 2 weeks and then apply 1g vaginally at bedtime 3 times per week ( ida) estradioL 0 Yes [id number] Apply 1g Univers (ESTRACE) 3-28 vaginally ity o f 0.01 % (0.1 00:00: at bedtime [place] mg/gram) 00 every Medical vaginal night for Branch cream 2 weeks and then apply 1g vaginally at bedtime 3 times per week ( ida) estradioL Yes [id number] Apply 1g Univers (ESTRACE) 3-28 vaginally ity o f 0.01 % (0.1 00:00: at bedtime [place] mg/gram) 00 every Medical vaginal night for Branch cream 2 weeks and then apply 1g vaginally at bedtime 3 times per week ( dn iday) estradioL 0 Yes [id number] Apply 1g Univers (ESTRACE) 3-28 vaginally ity o f 0.01 % (0.1 00:00: at bedtime [place] mg/gram) 00 every Medical vaginal night for Branch cream 2 weeks and then apply 1g vaginally at bedtime 3 times per week ( dn iday) estradioL 0 Yes [id number] Apply 1g Univers (ESTRACE) 3-28 vaginally ity o f 0.01 % (0.1 00:00: at bedtime [place] mg/gram) 00 every Medical vaginal night for Branch cream 2 weeks and then apply 1g vaginally at bedtime 3 times per week ( dn iday) estradioL 0 Yes [id number] Apply 1g Univers (ESTRACE) 3-28 vaginally ity o f 0.01 % (0.1 00:00: at bedtime [place] mg/gram) 00 every Medical vaginal night for Branch cream 2 weeks and then apply 1g vaginally at bedtime 3 times per week ( dn ida) estradioL Yes [id number] Apply 1g Univers (ESTRACE) 3-28 vaginally ity o f 0.01 % (0.1 00:00: at bedtime [place] mg/gram) 00 every Medical vaginal night for Branch cream 2 weeks and then apply 1g vaginally at bedtime 3 times per week ( dn ida) estradioL Yes [id number] Apply 1g Univers (ESTRACE) 3-28 vaginally ity o f 0.01 % (0.1 00:00: at bedtime [place] mg/gram) 00 every Medical vaginal night for Branch cream 2 weeks and then apply 1g vaginally at bedtime 3 times per week ( dn ida) estradioL Yes [id number] Apply 1g Univers (ESTRACE) 3-28 vaginally ity o f 0.01 % (0.1 00:00: at bedtime [place] mg/gram) 00 every Medical vaginal night for Branch cream 2 weeks and then apply 1g vaginally at bedtime 3 times per week ( dn ida) meloxicam 2020-11 Yes 15mg Take 15 mg Un lobo 15 mg 0-15 by mouth ity of tablet 15:33: daily. [address] meloxicam 2020-11 Yes 15mg Take 15 mg Un lobo 15 mg 0-15 by mouth ity of tablet 15:33: daily. [address] meloxicam 2020-11 Yes 15mg Take 15 mg Un lobo 15 mg 0-15 by mouth ity of tablet 15:33: daily. [address] meloxicam 2020-11 Yes 15mg Take 15 mg Un lobo 15 mg 0-15 by mouth ity of tablet 15:33: daily. [address] meloxicam 2020-11 Yes 15mg Take 15 mg Un lobo 15 mg 0-15 by mouth ity of tablet 15:33: daily. [address] meloxicam 2020-11 Yes 15mg Take 15 mg Un lobo 15 mg 0-15 by mouth ity of tablet 15:33: daily. [address] meloxicam 2020-11 Yes 15mg Take 15 mg Un lobo 15 mg 0-15 by mouth ity of tablet 15:33: daily. [address] meloxicam 2020-11 Yes 15mg Take 15 mg Un lobo 15 mg 0-15 by mouth ity of tablet 15:33: daily. [address] meloxicam 2020-11 Yes 15mg Take 15 mg Un lobo 15 mg 0-15 by mouth ity of tablet 15:33: daily. [address] aspirin 81 aspirin 81 No aspirin 81 Jeri mg mg 4-26 mg Orthope tablet,leonardo tablet,leonardo 00:00: tablet,del dic yed release yed release 00 ayed S ports RX by other RX by other release RX Medicin MD BURGOS by other e atorvastati atorvastati No atorvastat Jeri n 20 mg n 20 mg 4-26 in 20 mg Ortho pe tablet tablet 00:00: tablet dic 00 Sports Medicin e diclofenac diclofenac No diclofenac Jeri sodium 75 sodium 75 4-26 sodium 75 Orthope mg mg 00:00: mg dic tablet,leonardo tablet,leonardo 00 tablet,del Sports yed release yed release ayed M edicin RX by other RX by other release RX e MD BURGOS by other esomeprazol esomeprazol No esomeprazo Jeri e magnesium e magnesium 4-26 le O rthope 20 mg 20 mg 00:00: magnesium dic capsule,del capsule,del 00 20 mg Sports ayed ayed capsule,de Medicin release release layed e release fluticasone fluticasone No fluticason Jeri 100 100 4-26 e 100 Orthope mcg-salmete mcg-salmete 00:00: mcg-salmet dic rol 50 rol 50 00 cassia 50 Sports mcg/dose mcg/dose mcg/dose Med icin blistr blistr blistr e powdr for powdr for powdr for inhalation inhalation inhalation RX by other RX by other RX by MD MD aubree BURGOS aspirin 81 2018-11 Yes 325mg Take 325 Un lobo mg EC 1-01 mg by ity of tablet 15:15: mouth [place] 40 daily. [facility] Branch aspirin 81 2018-11 Yes 325mg Take 325 Un lobo mg EC 1-01 mg by ity of tablet 15:15: mouth [place] 40 daily. Medical Branch aspirin 81 2018-11 Yes 325mg Take 325 Un lobo mg EC 1-01 mg by ity of tablet 15:15: mouth [place] 40 daily. Medical Branch aspirin 81 2018-11 Yes 325mg Take 325 Un lobo mg EC 1-01 mg by ity of tablet 15:15: mouth [place] 40 daily. Medical Branch aspirin 81 2018-11 Yes 325mg Take 325 Un lobo mg EC 1-01 mg by ity of tablet 15:15: mouth [place] 40 daily. Medical Branch aspirin 81 2018-11 Yes 325mg Take 325 Un lobo mg EC 1-01 mg by ity of tablet 15:15: mouth [place] 40 daily. Medical Branch aspirin 81 2018-11 Yes 325mg Take 325 Un lobo mg EC 1-01 mg by ity of tablet 15:15: mouth [place] 40 daily. Medical Branch aspirin 81 2018-11 Yes 325mg Take 325 Un lobo mg EC 1-01 mg by ity of tablet 15:15: mouth [place] 40 daily. Medical Branch aspirin 81 2018-11 Yes 325mg Take 325 Un lobo mg EC 1-01 mg by ity of tablet 15:15: mouth [place] 40 daily. Medical Branch atorvastati Yes 20mg Take 20 mg Univers n (LIPITOR) 8-27 by mouth ity of 20 mg 10:40: at [place] tablet 00 bedtime. Medical Branch lisinopril- Yes 1{tbl} Take 1 Un lobo hydrochloro 8-27 tablet by ity of thiazide 10:40: mouth [place] (PRINZIDE,Z 00 daily. Medica l ESTORETIC) Branch 20-12.5 mg per tablet esomeprazol Yes Take by Uni vers e magnesium 8-27 mouth. ity of (NEXIUM 10:40: [place] 24HR) 22.3 00 Medical mg CpDR Branch metoprolol Yes 25mg Take 25 mg U nivers tartrate 25 8-27 by mouth 2 it y of mg tablet 10:40: (two) [place] 00 times Medical daily. Branch isosorbide Yes 30mg Take 30 mg U nivers mononitrate 8-27 by mouth. ity of 30 mg 24 hr 10:40: [place] tablet 00 Medical Branch fluticasone Yes Use in Univ ers (FLONASE 8-27 each ity of ALLERGY 10:40: nostril [place] RELIEF) 50 00 daily. Medical mcg/actuati Branch on nasal spray atorvastati Yes 20mg Take 20 mg Univers n (LIPITOR) 8-27 by mouth ity of 20 mg 10:40: at [place] tablet 00 bedtime. Medical Branch lisinopril- Yes 1{tbl} Take 1 Un lobo hydrochloro 8-27 tablet by ity of thiazide 10:40: mouth [place] (PRINZIDE,Z 00 daily. Medica l ESTORETIC) Branch 20-12.5 mg per tablet esomeprazol Yes Take by Uni vers e magnesium 8-27 mouth. ity of (NEXIUM 10:40: [place] 24HR) 22.3 00 Medical mg CpDR Branch metoprolol Yes 25mg Take 25 mg U nivers tartrate 25 8-27 by mouth 2 it y of mg tablet 10:40: (two) [place] 00 times Medical daily. Branch isosorbide Yes 30mg Take 30 mg U nivers mononitrate 8-27 by mouth. ity of 30 mg 24 hr 10:40: [place] tablet 00 Medical Branch fluticasone Yes Use in Univ ers (FLONASE 8-27 each ity of ALLERGY 10:40: nostril [place] RELIEF) 50 00 daily. Medical mcg/actuati Branch on nasal spray atorvastati Yes 20mg Take 20 mg Univers n (LIPITOR) 8-27 by mouth ity of 20 mg 10:40: at [place] tablet 00 bedtime. Medical Branch lisinopril- Yes 1{tbl} Take 1 Un lobo hydrochloro 8-27 tablet by ity of thiazide 10:40: mouth [place] (PRINZIDE,Z 00 daily. Medica l ESTORETIC) Branch 20-12.5 mg per tablet esomeprazol Yes Take by Uni vers e magnesium 8-27 mouth. ity of (NEXIUM 10:40: [place] 24HR) 22.3 00 Medical mg CpDR Branch metoprolol Yes 25mg Take 25 mg U nivers tartrate 25 8-27 by mouth 2 it y of mg tablet 10:40: (two) [place] 00 times Medical daily. Branch isosorbide Yes 30mg Take 30 mg U nivers mononitrate 8-27 by mouth. ity of 30 mg 24 hr 10:40: [place] tablet 00 Medical Branch fluticasone Yes Use in [facility] ers (FLONASE 8-27 each ity of ALLERGY 10:40: nostril [place] RELIEF) 50 00 daily. Medical mcg/actuati Branch on nasal spray atorvastati Yes 20mg Take 20 mg Univers n (LIPITOR) 8-27 by mouth ity of 20 mg 10:40: at [place] tablet 00 bedtime. Medical Branch lisinopril- Yes 1{tbl} Take 1 Un lobo hydrochloro 8-27 tablet by ity of thiazide 10:40: mouth [place] (PRINZIDE,Z 00 daily. Medica l ESTORETIC) Branch 20-12.5 mg per tablet esomeprazol Yes Take by Uni vers e magnesium 8-27 mouth. ity of (NEXIUM 10:40: [place] 24HR) 22.3 00 Medical mg CpDR Branch metoprolol Yes 25mg Take 25 mg U nivers tartrate 25 8-27 by mouth 2 it y of mg tablet 10:40: (two) [place] 00 times Medical daily. Branch isosorbide Yes 30mg Take 30 mg U nivers mononitrate 8-27 by mouth. ity of 30 mg 24 hr 10:40: [place] tablet 00 Medical Branch fluticasone Yes Use in [place] [facility] ers (FLONASE 8-27 each ity of ALLERGY 10:40: nostril [place] RELIEF) 50 00 daily. Medical mcg/actuati Branch on nasal spray atorvastati Yes 20mg Take 20 mg Univers n (LIPITOR) 8-27 by mouth ity of 20 mg 10:40: at [place] tablet 00 bedtime. Medical Branch lisinopril- Yes 1{tbl} Take 1 Un lobo hydrochloro 8-27 tablet by ity of thiazide 10:40: mouth [place] (PRINZIDE,Z 00 daily. Medica l ESTORETIC) Branch 20-12.5 mg per tablet esomeprazol Yes Take by Uni vers e magnesium 8-27 mouth. ity of (NEXIUM 10:40: [place] 24HR) 22.3 00 Medical mg CpDR Branch metoprolol Yes 25mg Take 25 mg U nivers tartrate 25 8-27 by mouth 2 it y of mg tablet 10:40: (two) [place] 00 times Medical daily. Branch isosorbide Yes 30mg Take 30 mg U nivers mononitrate 8-27 by mouth. ity of 30 mg 24 hr 10:40: [place] tablet 00 Medical Branch fluticasone Yes Use in [place] [facility] ers (FLONASE 8-27 each ity of ALLERGY 10:40: nostril [place] RELIEF) 50 00 daily. Medical mcg/actuati Branch on nasal spray atorvastati Yes 20mg Take 20 mg Univers n (LIPITOR) 8-27 by mouth ity of 20 mg 10:40: at [place] tablet 00 bedtime. Medical Branch lisinopril- Yes 1{tbl} Take 1 Un lobo hydrochloro 8-27 tablet by ity of thiazide 10:40: mouth [place] (PRINZIDE,Z 00 daily. Medica l ESTORETIC) Branch 20-12.5 mg per tablet esomeprazol Yes Take by Uni vers e magnesium 8-27 mouth. ity of (NEXIUM 10:40: [place] 24HR) 22.3 00 Medical mg CpDR Branch metoprolol Yes 25mg Take 25 mg U nivers tartrate 25 8-27 by mouth 2 it y of mg tablet 10:40: (two) [place] 00 times Medical daily. Branch isosorbide Yes 30mg Take 30 mg U nivers mononitrate 8-27 by mouth. ity of 30 mg 24 hr 10:40: [place] tablet 00 Medical Branch fluticasone Yes Use in [place] [facility] ers (FLONASE 8-27 each ity of ALLERGY 10:40: nostril [place] RELIEF) 50 00 daily. Medical mcg/actuati Branch on nasal spray atorvastati Yes 20mg Take 20 mg Univers n (LIPITOR) 8-27 by mouth ity of 20 mg 10:40: at [place] tablet 00 bedtime. Medical Branch lisinopril- Yes 1{tbl} Take 1 Un lobo hydrochloro 8-27 tablet by ity of thiazide 10:40: mouth [place] (PRINZIDE,Z 00 daily. Medica l ESTORETIC) Branch 20-12.5 mg per tablet esomeprazol Yes Take by Uni vers e magnesium 8-27 mouth. ity of (NEXIUM 10:40: [place] 24HR) 22.3 00 Medical mg CpDR Branch metoprolol Yes 25mg Take 25 mg U nivers tartrate 25 8-27 by mouth 2 it y of mg tablet 10:40: (two) [place] 00 times Medical daily. Branch isosorbide Yes 30mg Take 30 mg U nivers mononitrate 8-27 by mouth. ity of 30 mg 24 hr 10:40: [place] tablet 00 Medical Branch fluticasone Yes Use in [facility] ers (FLONASE 8-27 each ity of ALLERGY 10:40: nostril [place] RELIEF) 50 00 daily. Medical mcg/actuati Branch on nasal spray atorvastati Yes 20mg Take 20 mg Univers n (LIPITOR) 8-27 by mouth ity of 20 mg 10:40: at [place] tablet 00 bedtime. Medical Branch lisinopril- Yes 1{tbl} Take 1 Un lobo hydrochloro 8-27 tablet by ity of thiazide 10:40: mouth [place] (PRINZIDE,Z 00 daily. Medica l ESTORETIC) Branch 20-12.5 mg per tablet esomeprazol Yes Take by Uni vers e magnesium 8-27 mouth. ity of (NEXIUM 10:40: [place] 24HR) 22.3 00 Medical mg CpDR Branch metoprolol Yes 25mg Take 25 mg U nivers tartrate 25 8-27 by mouth 2 it y of mg tablet 10:40: (two) [place] 00 times Medical daily. Branch isosorbide Yes 30mg Take 30 mg U nivers mononitrate 8-27 by mouth. ity of 30 mg 24 hr 10:40: [place] tablet 00 Medical Branch fluticasone Yes Use in [facility] ers (FLONASE 8-27 each ity of ALLERGY 10:40: nostril [place] RELIEF) 50 00 daily. Medical mcg/actuati Branch on nasal spray atorvastati Yes 20mg Take 20 mg Univers n (LIPITOR) 8-27 by mouth ity of 20 mg 10:40: at [place] tablet 00 bedtime. Medical Branch lisinopril- Yes 1{tbl} Take 1 Un lobo hydrochloro 8-27 tablet by ity of thiazide 10:40: mouth [place] (PRINZIDE,Z 00 daily. Medica l ESTORETIC) Branch 20-12.5 mg per tablet esomeprazol Yes Take by Uni vers e magnesium 8-27 mouth. ity of (NEXIUM 10:40: [place] 24HR) 22.3 00 Medical mg CpDR Branch metoprolol Yes 25mg Take 25 mg U nivers tartrate 25 827 by mouth 2 it y of mg tablet 10:40: (two) [place] 00 times Medical daily. Branch isosorbide Yes 30mg Take 30 mg U nivers mononitrate 8 by mouth. ity of 30 mg 24 hr 10:40: [place] tablet 00 Medical Branch fluticasone Yes Use in Univ ers (FLONASE 8-27 each ity of ALLERGY 10:40: nostril [place] RELIEF) 50 00 daily. Medical mcg/actuati Branch on nasal spray chlorphenir 2016-11 Yes Memori a amine 4 mg 2-04 l oral tablet 16:41: Efrain n 00 chlorphenir 2016-11 Yes Memori a amine 4 mg 2-04 l oral tablet 16:41: Efrain n 00 chlorphenir 2016-11 Yes Memori a amine 4 [...] tab, PO, l mg oral 16:31: BID [place] tablet 00 Esomeprazol 2016-11 Yes Daily Memor ia e 2-04 l 16:31: Oskar 00 isosorbide 2016-11 Yes 30 mg = 1 Me moria mononitrate 2-04 tab, PO, l 30 mg oral 16:31: Daily Efrain n tablet, 00 extended release metoprolol 2016-11 Yes 25 mg = 1 Me moria tartrate 25 2-04 tab, PO, l mg oral 16:31: BID Oskar tablet 00 Esomeprazol 2016-11 Yes Daily Memor ia e 2-04 l 16:31: [place]sk[place] 00 isosorbide 2016-11 Yes 30 mg = 1 Me moria mononitrate 2-04 tab, PO, l 30 mg oral 16:31: Daily Efrain n tablet, 00 extended release metoprolol 2016-11 Yes 25 mg = 1 Me moria tartrate 25 2-04 tab, PO, l mg oral 16:31: BID [place] tablet 00 Lisinopril- Lisinopril- Yes M.A. U T hydroCHLORO hydroCHLORO P hysici thiazide thiazide ans 20-12.5 MG 20-12.5 MG Oral Tablet Oral Tablet Isosorbide Isosorbide Yes M.A. [place] Mononitrate Mononitrate P hysici ER 30 MG ER 30 MG ans Oral Tablet Oral Tablet Extended Extended Release 24 Release 24 Hour Hour Metoprolol Metoprolol Yes M.[place]. [place] Tartrate 25 Tartrate 25 P hysici MG Oral MG Oral ans Tablet Tablet meloxicam meloxicam No meloxicam Jeri 15 mg 15 mg 15 mg Orthope tablet TAKE tablet TAKE tablet dic 1 TABLET BY 1 TABLET BY TAKE 1 Sports MOUTH EVERY MOUTH EVERY TABLET BY Medicin DAY DAY MOUTH e EVERY DAY Aspirin 81 Aspirin 81 Yes M.A. [place] TBEC TBEC Physici ans Atorvastati Atorvastati Yes M.A. U T n Calcium n Calcium Physi ci 20 MG Oral 20 MG Oral ans Tablet Tablet Immunizations Ordered Filled Immunization Date Status Comments [facility] e Immunization Name Name Influenza High Dose 2022-10-06 Completed Unive rsity of 00:00:00 [facility] Influenza High Dose 2022-10-06 Completed Unive rsity of 00:00:00 [facility] Influenza High Dose 2022-10-06 Completed Unive rsity of 00:00:00 [facility] SARS-COV-2 COVID-19 2021-12-09 Completed Unive rsity of MODERNA 0.25ML 00:00:00 [facility] BOOSTER VACCINE Branch SARS-COV-2 COVID-19 2021-12-09 Completed Unive rsity of MODERNA 0.25ML 00:00:00 [place] [facility] BOOSTER VACCINE Branch SARS-COV-2 COVID-19 2021-12-09 Completed Unive rsity of MODERNA 0.25ML 00:00:00 [place] [facility] BOOSTER VACCINE Branch SARS-COV-2 COVID-19 2021-12-09 Completed Unive rsity of MODERNA 0.25ML 00:00:00 [place] [facility] BOOSTER VACCINE Branch SARS-COV-2 COVID-19 2021-12-09 Completed Unive rsity of MODERNA 0.25ML 00:00:00 [place] [facility] BOOSTER VACCINE Branch SARS-COV-2 COVID-19 2021-12-09 Completed Unive rsity of MODERNA 0.25ML 00:00:00 [place] [facility] BOOSTER VACCINE Branch SARS-COV-2 COVID-19 2021-12-09 Completed Unive rsity of MODERNA 0.25ML 00:00:00 [place] [facility] BOOSTER VACCINE Branch SARS-COV-2 COVID-19 2021-12-09 Completed Unive rsity of MODERNA 0.25ML 00:00:00 [place] [facility] BOOSTER VACCINE Branch SARS-COV-2 COVID-19 2021-12-09 Completed Unive rsity of MODERNA 0.25ML 00:00:00 [place] [facility] BOOSTER VACCINE Branch Influenza Virus 2021-09-13 Completed Universit y of Vaccine,quad 00:00:00 [place] [facility],preserve Free Branch 65+ Influenza Virus 2021-09-13 Completed Universit y of Vaccine,quad 00:00:00 [place] [facility],preserve Free Branch 65+ Influenza Virus 2021-09-13 Completed Universit y of Vaccine,quad 00:00:00 [place] [facility],preserve Free Branch 65+ Influenza Virus 2021-09-13 Completed Universit y of Vaccine,quad 00:00:00 [place] [facility],preserve Free Branch 65+ Influenza Virus 2021-09-13 Completed Universit y of Vaccine,quad 00:00:00 [place] [facility],preserve Free Branch 65+ Influenza Virus 2021-09-13 Completed Universit y of Vaccine,quad 00:00:00 [place] [facility],preserve Free Branch 65+ Influenza Virus 2021-09-13 Completed Universit y of Vaccine,quad 00:00:00 [place] [facility],preserve Free Branch 65+ Influenza Virus 2021-09-13 Completed Universit y of Vaccine,quad 00:00:00 [place] [facility],preserve Free Branch 65+ Influenza Virus 2021-09-13 Completed Universit y of Vaccine,quad 00:00:00 [place] [facility] Im,preserve Free Branch 65+ SARS-COV-2 COVID-19 2021-01-03 Completed Unive rsity of MODERNA VACCINE 00:00:00 [place] [facility] SARS-COV-2 COVID-19 2021-01-03 Completed Unive rsity of MODERNA VACCINE 00:00:00 [place] [facility] SARS-COV-2 COVID-19 2021-01-03 Completed Unive rsity of MODERNA VACCINE 00:00:00 [place] [facility] SARS-COV-2 COVID-19 2021-01-03 Completed Unive rsity of MODERNA VACCINE 00:00:00 [place] [facility] SARS-COV-2 COVID-19 2021-01-03 Completed Unive rsity of MODERNA 12+ YRS 00:00:00 [place] [facility] VACCINE Branch SARS-COV-2 COVID-19 2021-01-03 Completed Unive rsity of MODERNA 12+ YRS 00:00:00 [place] [facility] VACCINE Branch SARS-COV-2 COVID-19 2021-01-03 Completed Unive rsity of MODERNA 12+ YRS 00:00:00 [place] [facility] VACCINE Branch SARS-COV-2 COVID-19 2021-01-03 Completed Unive rsity of MODERNA 12+ YRS 00:00:00 [place] [facility] VACCINE Branch SARS-COV-2 COVID-19 2021-01-03 Completed Unive rsity of MODERNA 12+ YRS 00:00:00 [place] [facility] VACCINE Branch SARS-COV-2 COVID-19 2020-12-06 Completed Unive rsity of MODERNA VACCINE 00:00:00 [place] [facility] SARS-COV-2 COVID-19 2020-12-06 Completed Unive rsity of MODERNA VACCINE 00:00:00 [place] [facility] SARS-COV-2 COVID-19 2020-12-06 Completed Unive rsity of MODERNA VACCINE 00:00:00 [place] [facility] SARS-COV-2 COVID-19 2020-12-06 Completed Unive rsity of MODERNA VACCINE 00:00:00 [place] [facility] SARS-COV-2 COVID-19 2020-12-06 Completed Unive rsity of MODERNA 12+ YRS 00:00:00 [place] [facility] VACCINE Branch SARS-COV-2 COVID-19 2020-12-06 Completed Unive rsity of MODERNA 12+ YRS 00:00:00 [place] [facility] VACCINE Branch SARS-COV-2 COVID-19 2020-12-06 Completed Unive rsity of MODERNA 12+ YRS 00:00:00 [place] [facility] VACCINE Branch SARS-COV-2 COVID-19 2020-12-06 Completed Unive rsity of MODERNA 12+ YRS 00:00:00 [place] [facility] ical VACCINE Branch SARS-COV-2 COVID-19 2020-12-06 Completed Unive rsity of MODERNA 12+ YRS 00:00:00 [place] [facility] VACCINE Branch Influenza Virus 2020-09-27 Completed Universit y of Vaccine 00:00:00 [facility] Pneumococcal 2020-09-27 Completed University o f Polysaccharide, 00:00:00 [place] [facility] ical PPSV23 (PNEUMOVAX) Branch Influenza High Dose 2020-09-27 Completed Unive rsity of Quad 00:00:00 [facility] Influenza Virus 2020-09-27 Completed Universit y of Vaccine 00:00:00 [facility] Pneumococcal 2020-09-27 Completed University o f Polysaccharide, 00:00:00 [place] [facility] ical PPSV23 (PNEUMOVAX) Branch Influenza High Dose 2020-09-27 Completed Unive rsity of Quad 00:00:00 [facility] Influenza Virus 2020-09-27 Completed Universit y of Vaccine 00:00:00 [facility] Pneumococcal 2020-09-27 Completed University o f Polysaccharide, 00:00:00 [place] [facility] ical PPSV23 (PNEUMOVAX) Branch Influenza High Dose 2020-09-27 Completed Unive rsity of Quad 00:00:00 [facility] Influenza Virus 2020-09-27 Completed Universit y of Vaccine 00:00:00 [facility] Pneumococcal 2020-09-27 Completed University o f Polysaccharide, 00:00:00 [place] [facility] ical PPSV23 (PNEUMOVAX) Branch Influenza High Dose 2020-09-27 Completed Unive rsity of Quad 00:00:00 [facility] Influenza Virus 2020-09-27 Completed Universit y of Vaccine 00:00:00 [facility] Pneumococcal 2020-09-27 Completed University o f Polysaccharide, 00:00:00 [place] [facility] PPSV23 (PNEUMOVAX) Branch Influenza High Dose 2020-09-27 Completed Unive rsity of Quad 00:00:00 [facility] Influenza Virus 2020-09-27 Completed Universit y of Vaccine 00:00:00 [facility] Pneumococcal 2020-09-27 Completed University o f Polysaccharide, 00:00:00 [place] [facility] ical PPSV23 (PNEUMOVAX) Branch Influenza High Dose 2020-09-27 Completed Unive rsity of Quad 00:00:00 [facility] Influenza Virus 2020-09-27 Completed Universit y of Vaccine 00:00:00 [facility] Pneumococcal 2020-09-27 Completed University o f Polysaccharide, 00:00:00 [place] [facility] ical PPSV23 (PNEUMOVAX) Branch Influenza High Dose 2020-09-27 Completed Unive rsity of Quad 00:00:00 [facility] Influenza Virus 2020-09-27 Completed Universit y of Vaccine 00:00:00 [facility] Pneumococcal 2020-09-27 Completed University o f Polysaccharide, 00:00:00 [place] [facility] ical PPSV23 (PNEUMOVAX) Branch Influenza High Dose 2020-09-27 Completed Unive rsity of Quad 00:00:00 [facility] Influenza Virus 2020-09-27 Completed Universit y of Vaccine 00:00:00 [facility] Pneumococcal 2020-09-27 Completed University o f Polysaccharide, 00:00:00 [place] [facility] PPSV23 (PNEUMOVAX) Branch Influenza High Dose 2020-09-27 Completed Unive rsity of Quad 00:00:00 [facility] Influenza High Dose 2019-12-23 Completed Unive rsity of 00:00:00 [facility] Influenza High Dose 2019-12-23 Completed Unive rsity of 00:00:00 [facility] Influenza High Dose 2019-12-23 Completed Unive rsity of 00:00:00 [facility] Influenza High Dose 2019-12-23 Completed Unive rsity of 00:00:00 [facility] Influenza High Dose 2019-12-23 Completed Unive rsity of 00:00:00 [facility] Influenza High Dose 2019-12-23 Completed Unive rsity of 00:00:00 [facility] Influenza High Dose 2019-12-23 Completed Unive rsity of 00:00:00 [facility] Influenza High Dose 2019-12-23 Completed Unive rsity of 00:00:00 [facility] Influenza High Dose 2019-12-23 Completed Unive rsity of 00:00:00 [facility] Influenza High Dose 2018-07-31 Completed Unive rsity of 00:00:00 [facility] Zoster Vaccine 2018-07-31 Completed University of Recombinant 00:00:00 [facility] Influenza High Dose 2018-07-31 Completed Unive rsity of 00:00:00 [facility] Zoster Vaccine 2018-07-31 Completed University of Recombinant 00:00:00 [facility] Influenza High Dose 2018-07-31 Completed Unive rsity of 00:00:00 [facility] Zoster Vaccine 2018-07-31 Completed University of Recombinant 00:00:00 [facility] Influenza High Dose 2018-07-31 Completed Unive rsity of 00:00:00 [facility] Zoster Vaccine 2018-07-31 Completed University of Recombinant 00:00:00 [facility] Influenza High Dose 2018-07-31 Completed Unive rsity of 00:00:00 [facility] Zoster Vaccine 2018-07-31 Completed University of Recombinant 00:00:00 [facility] Influenza High Dose 2018-07-31 Completed Unive rsity of 00:00:00 [facility] Zoster Vaccine 2018-07-31 Completed University of Recombinant 00:00:00 [facility] Influenza High Dose 2018-07-31 Completed Unive rsity of 00:00:00 [facility] Zoster Vaccine 2018-07-31 Completed University of Recombinant 00:00:00 [facility] Influenza High Dose 2018-07-31 Completed Unive rsity of 00:00:00 [facility] Zoster Vaccine 2018-07-31 Completed University of Recombinant 00:00:00 [facility] Influenza High Dose 2018-07-31 Completed Unive rsity of 00:00:00 [facility] Zoster Vaccine 2018-07-31 Completed University of Recombinant 00:00:00 [facility] TDAP 2018-03-01 Completed University of 00:00:00 [facility] Zoster(Zostavax)(Sh 2018-03-01 Completed Unive rsity of ingles) 00:00:00 [facility] TDAP 2018-03-01 Completed University of 00:00:00 [facility] Zoster(Zostavax)( 2018-03-01 Completed Unive rsity of ingles) 00:00:00 [facility] 2018-03-01 Completed University of 00:00:00 [facility] Zoster(Zostavax)( 2018-03-01 Completed Unive rsity of ingles) 00:00:00 [facility] 2018-03-01 Completed University of 00:00:00 [facility] Zoster(Zostavax)( 2018-03-01 Completed Unive rsity of ingles) 00:00:00 [facility] 2018-03-01 Completed University of 00:00:00 [facility] Zoster(Zostavax)( 2018-03-01 Completed Unive rsity of ingles) 00:00:00 [facility] 2018-03-01 Completed University of 00:00:00 [facility] Zoster(Zostavax)( 2018-03-01 Completed Unive rsity of ingles) 00:00:00 [facility] 2018-03-01 Completed University of 00:00:00 [facility] Zoster(Zostavax)( 2018-03-01 Completed Unive rsity of ingles) 00:00:00 [facility] 2018-03-01 Completed University of 00:00:00 [facility] Zoster(Zostavax)( 2018-03-01 Completed Unive rsity of ingles) 00:00:00 [facility] 2018-03-01 Completed University of 00:00:00 [facility] Zoster(Zostavax)( 2018-03-01 Completed Unive rsity of ingles) 00:00:00 [facility] Pneumococcal 13 2017-10-12 Completed Universit y of Conjugate, PCV13 00:00:00 [place] [facility] (Prevnar 13) Branch Pneumococcal 13 2017-10-12 Completed Universit y of Conjugate, PCV13 00:00:00 [place] [facility] (Prevnar 13) Branch Pneumococcal 13 2017-10-12 Completed Universit y of Conjugate, PCV13 00:00:00 [place] [facility] (Prevnar 13) Branch Pneumococcal 13 2017-10-12 Completed Universit y of Conjugate, PCV13 00:00:00 [place] [facility] (Prevnar 13) Branch Pneumococcal 13 2017-10-12 Completed Universit y of Conjugate, PCV13 00:00:00 [place] [facility] (Prevnar 13) Branch Pneumococcal 13 2017-10-12 Completed Universit y of Conjugate, PCV13 00:00:00 [place] [facility] (Prevnar 13) Branch Pneumococcal 13 2017-10-12 Completed Universit y of Conjugate, PCV13 00:00:00 [place] [facility] (Prevnar 13) Branch Pneumococcal 13 2017-10-12 Completed Universit y of Conjugate, PCV13 00:00:00 [place] [facility] (Prevnar 13) Branch Pneumococcal 13 2017-10-12 Completed Universit y of Conjugate, PCV13 00:00:00 [facility] dical (Prevnar 13) Branch Vital Signs Vital Name Observation Time Observation Value Comments Source Body height 2022-05-09 162.6 cm [facility] 17:56:00 [facility] Body weight 2022-05-09 95.255 kg [facility] 17:56:00 [facility] BMI 2022-05-09 36.05 kg/m2 [facility] 17:56:00 [facility] Height 2022-05-02 64 [in_i] Jeri 00:00:00 [facility] BMI (Body Mass 2022-05-02 35.4 kg/m2 Jeri Index) 00:00:00 [facility] Body Weight 2022-05-02 206 [lb_av] Jeri 00:00:00 [facility] Systolic blood 2020-05-01 125 mm[Hg] Location: [facility] [place] [facility] pressure 15:01:00 Position: Sitting Diastolic blood 2020-05-01 81 mm[Hg] Location: [place]; [place] [facility] pressure 15:01:00 Position: Sitting Body height 2020-05-01 64 [in_us] [facility] 15:01:00 Weight 2020-05-01 200 [lb_av] [facility] 15:01:00 Body mass index 2020-05-01 34.33 kg/m2 [facility] (BMI) [Ratio] 15:01:00 Body temperature 2020-05-01 98 [degF] Method: [facility] 15:01:00 Temporal Heart Rate 2020-05-01 69 /min [facility] 15:01:00 BMI Calculated 2019-03-07 Amira reynoso 19:57:00 [facility] 2019-03-07 [facility] 19[facility] Height 2019-03-07 162.56 cm Amira Abreuan n 19:57:00 Systolic (mm Hg) 2019-03-07 [facility] Saroj rmann 19:57:00 Diastolic (mm Hg) 2019-03-07 Amira Barnes ermann 19:57:00 Heart Rate 2019-03-07 Amira Zuniga n 19:57:00 Height 2017-11-02 162.56 cm Amira Zuniga n 16:21:00 BMI Calculated 2017-11-02 [facility] 16:21:00 Weight 2017-11-02 Amira Abreuan n 16:21:00 Heart Rate 2017-11-02 Amira Abreuan n 16:21:00 Systolic (mm Hg) 2017-11-02 [facility] Saroj rmann 16:21:00 Diastolic (mm Hg) 2017-11-02 [facility] Molly ermann 16:21:00 Procedures Procedure Date / Time Performing Clinician Source Performed US RETROPERITONEAL 2022-05-21 18:27[facility]NAL PROVIDER RECORDS 2022-05-16 05:01:00 Doctor Unassigned, [facility] DISCLOSURE AND CONSENT, 2022-05-09 05:01:00 Doctor Unassigned, [facility] MEDICAL AND SURGICAL [facility] PROCEDURES XR, knee, 3 view 2022-05-02 00:00:00 Jeri Arriaga [facility] [Q] THINPREP TIS AND HPV 2020-05-01 00:00:00 [place] [facility] mRNA E6/E7 Mammogram 2019-03-07 05:00:00 [facility] Her prescott Colonoscopy 2014-08-24 05:00:00 [facility] Her [place] History of [place]nee surgery [place] [facility] [place] [facility] BSO - Bilateral [facility] salpingo-oophorectomy Hysterectomy [facility] Knee joint operation [facility] rmann Plan of Care Planned Activity Planned Date Details Comments Source Instructions Jeri Orth[facility] Encounters Start End Encounter Admission Attending Care Care Encounter Source Date/Time Date/Time Type Type Clinicians Facility Department ID 2023-05-26 2023-05-26 Outpatient R MOLLY, [facility] [id number] Univers 00:00:00 00:00:00 MINNIE bee [facility] 2023-04-17 2023-04-17 [facility] [id number] Univers 13:30:00 13:30:00 MINNIE bee [facility] 2023-03-26 2023-03-26 Outpatient Mohamud_J 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 [facility] [id number] Univers 11:00:00 11:53:55 Visit TyroneJimbo [id number] ity [id number] [id number] [address] 2022-11-26 2022-11-26 [facility] [id number] Univers 11:00:00 11:00:00 JIMBO rohit [facility] 2022-09-05 2022-09-05 [facility] [id number] Univers 00:00:00 00:00:00 Jimbo MCARTHUR [id number] i ty [facility] [id number] [phone] Nm dicfl NAL [address] [place] [address] 2022-09-02 2022-09-02 Electro Mechanical Designer 2, Adc Lab [facility] 1.2.840.114 [id number] Univers 11:00:00 11:15:00 Visit Tyrone Jimbo MCARTHUR [id number] ity [facility] [id number] [phone] Nm dical NAL [address] [place] [address] 2022-09-02 2022-09-02 [facility] [id number] Univers 11:00:00 11:00:00 JIMBO bee [facility] 2022-05-21 2022-05-21 Outpatient R [facility] [id number] Univers 12:33:37 23:59:00 JIMBO ity [facility] 2022-05-21 2022-05-21 Hospital [facility] [id number] Univers 12:33:37 23:59:00 Encounter Jimbo MCARTHUR [id number] ity [facility] [id number] [id number] [facility] 806 Branch 2022-05-16 2022-05-16 Orders Doctor LACY [id number] Univers 00:00:00 00:00:00 Only Unassigned, ENA [id number] ity of [place]anda [facility] [id number] Neno as [id number] [facility] 009 Branch 2022-05-09 2022-05-09 Outpatient R [facility] [id number] Univers 11:00:00 16:48:40 JIMBO asadjoelle [facility] 2022-05-09 2022-05-09 Office [facility] [id number] Univers 11:00:00 16:48:40 Visit Jimbo MCARTHUR [id number] i ty [facility] [id number] [facility] [phone] Nm dical [facility] 098 [facility] 2022-05-09 2022-05-09 Outpatient R [facility] [id number] Univers 11:00:00 11:00:00 JIMBO bee [facility] 2022-05-09 2022-05-09 Outpatient R [facility] [id number] Univers 11:00:00 11:00:00 JIMBO bee [facility] 2022-05-09 2022-05-09 Orders Doctor HOUSE [id number] Univers 00:00:00 00:00:00 Only Unassigned, ENA [id number] ity of [place]anda [facility] [id number] Neno as [id number] [facility] 009 Branch 2022-05-05 2022-05-05 Outpatient R ADUM, [facility] [id number] Univers 13:24:13 23:59:00 MINNIE itjoelle [facility] 2022-05-05 2022-05-05 [facility] [id number] Univers 13:24:13 23:59:00 Encounter Minnie MCARTHUR [id number] ity [facility] [id number] [facility] [id number] [facility] 800 Branch 2022-05-05 2022-05-05 Outpatient R AD, [facility] [id number] Univers 13:24:13 23:59:00 MINNIE bee [facility] 2022-05-05 2022-05-05 Orders Doctor HOUSE [id number] Univers 00:00:00 00:00:00 Only Unassigned, ENA [id number] ity of [place]anda [facility] [id number] Neno as [id number] [facility] 009 Branch 2022-05-02 2022-05-02 Outpatient FOG_Goytia_ AOSM AOSM [id number] Jeri 03:27:00 03:27:00 Jacob [id number] Ortho pe dic Sports Medicin e 2022-05-02 2022-05-02 Sadi BRADFORDSM [place] - Ortho [id number] Jeri 00:00:00 00:00:00 Sarahi Guardado MD: [id number] FOG_Ofc dic [facility] Sp[place] [id number] , Ph. [phone] 2022-05-02 2022-05-02 Outpatient Debby, AOSM AOSM [id number] 00:00:00 00:00:00 Sadi Clifton [id number] 2022-04-30 2022-04-30 Electro Mechanical Designer 2, Adc Lab [facility] [id number] [id number] Univers 13:15:00 13:30:00 Visit Jimbo Hansen [id number] it[id number] [phone] Nm alma FULLER 353 [facility] 2022-04-30 2022-04-30 Outpatient R TYRONE [facility] [id number] Univers 13:15:00 13:15:00 JIMBO bee [facility] 2022-04-16 2022-04-16 [facility] [id number] Univers 10:30:00 11:37:16 MINNIE bee [facility] 2022-04-16 2022-04-16 Office [facility] [id number] Univers 10:30:00 11:37:16 Visit Minnie MCARTHUR [id number] ity [facility] [id number] [phone] [facility] 134 [facility] 2022-04-16 2022-04-16 [facility] [id number] Univers 10:30:00 11:37:16 MINNIE bee [facility] 2022-04-11 2022-04-11 [facility] [id number] Univers 14:00:00 14:00:00 JIMBO bee [facility] 2022-04-11 2022-04-11 [facility] [id number] Univers 14:00:00 14:00:00 JIMBO bee [facility] 2022-04-09 2022-04-09 Telephone [facility] [id number] Univers 00:00:00 00:00:00 Jimbo MCARTHUR [id number] i ty [id number] [phone] Nm alma FULLER 188 [facility] 2022-04-08 2022-04-08 Telephone [facility] [id number] Univers 00:00:00 00:00:00 Jimbomejia LUCASROB [id number] i ty [id number] [phone] Nm dical NAL 188 [facility] 2022-04-02 2022-04-02 Outpatient FOG_Goytia_ AOSM AOSM [id number] Jeri 01:06:00 01:06:00 Jacob [id number] Ortho pe dic Sports Medicin e 2022-04-02 2022-04-02 Outpatient FOG_Goytia_ AOSM AOSM 588 [id number] Jeri 01:06:00 01:06:00 Jacob [id number] Ortho pe dic Sports Medicin e 2022-03-24 2022-03-24 [facility] [id number] Univers 13:00:00 13:36:50 [facility] 2022-03-24 2022-03-24 Office [facility] 1.2.840.114 [id number] Univers 13:00:00 13:36:50 Visit Jimbo MCARTHUR 350.1.13.10 i ty of [place] [phone] Nm dicfl NAL [address] [place] [address] 2022-03-24 2022-03-24 [facility] [id number] Univers 13:00:00 13:36:50 [facility] 2022-03-24 2022-03-24 [facility] [id number] Univers 13:00:00 13:00:00 JIMBO [facility] 2022-02-24 2022-02-24 Office [facility] 1.2.840.114 [id number] Univers 15:00:00 15:47:27 Visit Jimbo MCARTHUR 350.1.13.10 i ty [facility] [place] [phone] Nm dical NAL [address] [place] [address] 2022-02-24 2022-02-24 [facility] [id number] Univers 15:00:00 15:47:27 [facility] 2022-02-24 2022-02-24 Out[facility] [id number] Univers 15:00:00 15:00:00 JIMBO joelle [facility] 2022-02-24 2022-02-24 Orders Doctor LACY 1.2.840.114 [id number] Univers 00:00:00 00:00:00 Only Unassigned, ENA 350.1.13.10 ity of [place] [facility] 4.2.7.2.686 Neno as [phone] [address] 2022-01-21 2022-01-21 Outpatient Vicky UREÑA [facility] [id number] Univers 14:20:00 14:20:00 RADU bee o f [facility] 2021-12-09 2021-12-09 Outpatient [facility] [id number] Univers 16:00:00 16:00:00 ROBERTH bee [facility] 2021-12-09 2021-12-09 Imm/Inj Nurse, Adc Pob Immunization [facility] 1.2.840.114 [id number] Univers 16:00:00 16:00:00 Visit Roberth Ramos 350.1.13 .10 ity of [place] [phone] Nm alma FULLER [address] BUILDING 2021-11-03 2021-11-03 Outpatient Vicky DAVID [facility] [id number] Univers 10:00:00 10:34:26 GENET bee [facility] 2021-11-03 2021-11-03 Urgent Genet David [facility] 1.2.840.114 [id number] Univers 09:48:28 10:34:26 Care EjMarcia diggs [facility] 350.1.13.10 ity of [place] 4.2.7.2.686 Neno as VLADIMIR?BLEA [phone] Nm alma VARGASEY [address] MEDICAL OFFICE BUILDING 2021-11-01 2021-11-01 Orders Doctor HOUSE 1.2.840.114 [id number] Univers 00:00:00 00:00:00 Only Unassigned, ENA 350.1.13.10 ity of [place] [facility] 4.2.7.2.686 Neno as [phone] [address] 2021-09-13 2021-09-13 [facility] 1.2.840.114 [id number] Univers 15:20:28 15:51:39 Visit [facility] 350.1.13.10 it y of [place] 4.2.7.2.686 Neno as Vladimir?Blea [phone] Nm alma [address] Office Building 2021-09-13 2021-09-13 Out[facility] [id number] Univers 15:30:00 15:30:00 DIAMANTE ity [facility] 2021-07-16 2021-07-16 Orders Doctor LACY 1.2.840.114 [id number] Univers 00:00:00 00:00:00 Only Unassigned, ENA 350.1.13.10 ity of [place] [facility] 4.2.7.2.686 [place]eno as [phone] [address] 2021-04-10 2021-04-10 Office [facility] 1.2.840.114 [id number] Univers 13:03:45 13:18:45 Visit [facility] 350.1.13.10 it y [place] [phone] [address] Office Building 2021-04-10 2021-04-10 Office [facility] 1.2.840.114 [id number] 13:03:45 13:18:45 Visit [facility] 350.1.13.10 [place] 4.2.7.2.686 [place] [phone] [place] [address] Office Building 2021-04-10 2021-04-10 Out[facility] [id number] Univers 13:15:00 13:15:00 BILAL ity [facility] 2021-02-22 2021-02-22 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 Mechanical Designer Tahira Platt Lab Main [facility] 1.2.8 40.114 [id number] Univers 16:54:52 17:09:52 Visit Paul Brito 350.1.13.10 ity of [place].2.[place] Profess[place] [phone] Nm dical nal [address] [facility] 2021-02-22 2021-02-22 Outpatient Vicky BRITO [facility] [id number] Univers 17:00:00 17:00:00 PAUL bee [facility] 2021-02-22 2021-02-22 Telephone [facility] 1.2.799.904 [id number] Univers 00:00:00 00:00:00 Bilal [facility] 350.1.13.10 it y of [place] [phone] [address] Office Building 2021-01-29 2021-01-29 Telephone [facility] 1.2.840.114 [id number] Univers 00:00:00 00:00:00 Lilliam [facility] 350.1.13.10 it y of Surgical 4.2.7.2.686 [place] Specialti [phone] Me dical es [address] [facility] 2021-01-24 2021-01-24 Office [facility] 1.2.452.088 [id number] Univers 13:43:05 14:17:20 Visit Lilliam [facility] 350.1.13.10 it y of Surgical 4.2.7.2.686 [place] Specialti [phone] Nm dical es 198 [facility] 2021-01-24 2021-01-24 Outpatient Vicky GARCIA [facility] [id number] Univers 13:45:00 13:45:00 LILLIAM rohit [facility] 2021-01-03 2021-01-03 Outpatient Vicky OATES [facility] [id number] Univers 11:50:00 11:50:00 LIDIA rohit [facility] 2020-12-06 2020-12-06 Outpatient Vicky OATES [facility] [id number] Univers 13:00:00 13:00:00 LIDIA [facility] 2020-10-10 2020-10-10 Office [facility] 1.2.840.114 [id number] Univers 13:17:03 14:05:41 Visit [facility] 350.1.13.10 it y of [place] 4.2.7.2.686 [facility] [phone] [facility] Medical [address] Office Building 2020-10-10 2020-10-10 Out[facility] [id number] Univers 13:30:00 13:30:00 BILPASCUAL itjoelle [facility] 2020-10-05 2020-10-05 [facility] 1.2.840.114 [id number] Univers 08:58:59 23:59:00 Encounter Lilliam Mcarthur 350.1.13.10 ity of [place] 4.2.7.2.686 [facility] [phone] [facility] [address] 2020-10-05 2020-10-05 Office [facility] 1.2.298.046 [id number] Univers 10:02:03 10:25:44 Visit Lilliam Calhoun 350.1.13.10 it y of Surgical 4.2.7.2.686 [place] Specialti [phone] Nm dical es 198 [facility] 2020-10-05 2020-10-05 Outpatient [facility] [id number] Univers 10:15:00 10:15:00 LILLIAM bee [facility] 2020-10-04 2020-10-04 Telephone [facility] 1.2.840.114 [id number] Univers 00:00:00 00:00:00 Lilliam Calhoun 350.1.13.10 it y of Surgical 4.2.7.2.686 [place] Specialti [phone] Nm dical es 198 [facility] 2020-10-03 2020-10-03 Office [facility] 1.2.840.114 [id number] Univers 13:10:26 13:25:26 Visit Diamante [facility] 350.1.13.10 it y of [facility] 4.2.7.2.686 [place] Professio [phone] Nm dical nal [address] Office [facility] 2020-10-03 2020-10-03 Outpatient [facility] [id number] Univers 13:15:00 13:15:00 DIAMANTE [facility] 2020-09-06 2020-09-06 Office [facility] 1.2.840.114 [id number] Univers 13:42:56 14:22:49 Visit [facility] 350.1.13.10 it y of [place].2.[place].2.[place] [facility] [phone] [facility] Primary & [address] [facility] 2020-09-06 2020-09-06 Outpatient R KRUNAL [facility] [id number] Univers 14:00:00 14:00:00 [facility] ity [facility] 2020-08-30 2020-08-30 [facility] 1.2.840.114 [id number] Univers 13:41:47 15:07:35 Visit Leonel Mcarthur 350.1.13.10 i ty of [place] [phone] [facility] 204 [facility] 2020-08-30 2020-08-30 Outpatient [facility] [id number] Univers 14:00:00 14:00:00 LEONEL [facility] 2020-08-01 2020-08-01 Telephone [facility] 1.2.387.579 [id number] Univers 00:00:00 00:00:00 Sunny Mcarthur 350.1.13.10 ity of [place] [phone] [facility] 204 [facility] 2020-07-30 2020-07-30 Electro Mechanical Designer Lc, Adc Lab Main [facility] 1.2.8 40.114 [id number] Univers 10:47:16 11:02:16 Visit Sunny Nguyen 350.1.13.10 ity of [place] 4.2.[place].2.[place] [phone] [facility] 353 [facility] 2020-07-30 2020-07-30 Outpatient [facility] [id number] Univers 11:00:00 11:00:00 SUNNY ity [facility] 2020-07-30 2020-07-30 Telephone [facility] 1.2.172.336 [id number] Univers 00:00:00 00:00:00 Sunny Mcarthur 350.1.13.10 ity of [place] [phone] Nm dical nal 204 [facility] 2020-06-13 2020-06-13 Pre Visit [facility] 1.2.840.114 [id number] Univers 00:00:00 00:00:00 Outreach Diamante [place] 350.1.13.10 ity [place] 4[place]2.7.2.[place] [phone] Nm dical nal 044 [facility] 2020-05-09 2020-05-09 Outpatient R GRAMM, [facility] [id number] Univers 13:30:00 13:30:00 SUNNY bee [facility] 2020-05-02 2020-05-02 Office [facility] 1.2.840.114 [id number] Univers 14:06:57 15:06:20 Visit Sunny Chand [facility].1.13.10 [facility] [place] [phone] Nm dical nal 204 [facility] 2020-05-02 2020-05-02 Outpatient R GRAMM, [facility] [id number] Univers 14:15:00 14:15:00 SUNNY bee [facility] 2020-05-01 2020-05-02 Outpatient nullFlavo [facility] [id number] Memoria 19:00:00 04:59:59 r [facility] 2020-05-01 2020-05-02 Outpatient nullFlavo [facility] [id number] Memoria 19:00:00 04:59:59 r Rad[facility] 12 [facility] 2020-05-01 2020-05-01 Outpatient VISIT, [facility] [id number] 14:00:00 23:59:59 NURSE STWC 12 MAMMO 2020-05-01 2020-05-01 Ambulatory nullFlavo [facility] [id number] Memoria 19:30:00 19:30:00 Pre-Reg r Radiology 11 [facility] 2020-05-01 2020-05-01 Ambulatory nullFlavo [facility] [id number] Memoria 19:30:00 19:30:00 Pre-Reg r Radiology 11 [facility] 2020-05-01 2020-05-01 Outpatient VISIT, [facility] [place] [id number] 14:30:00 14:30:00 NURSE STWC 11 MAMMO 2020-05-01 2020-05-01 Outpatient MHIE MHIE [id number] Memoria 14:00:00 14:00:00 12 l Gurley 2020-05-01 2020-05-01 Ronald LOVE [facility] [id number] [place] 13:45:00 13:45:00 t; Kiran [facility]ODER. [facility] Amber YODER 2020-03-12 2020-03-12 Ambulatory nullFlavo MG activated sludge attendant 4 [id number] Memoria 20:00:00 20:00:00 Pre-Reg r Dickens 10 l Oskar 2020-03-12 2020-03-12 Ambulatory nullFlavo MG activated sludge attendant 4 [id number] Memoria 20:00:00 20:00:00 Pre-Reg r Dickens 10 l Oskar 2020-03-12 2020-03-12 [place] [id number] Memoria 19:30:00 19:30:00 Pre-Reg r Radiology 09 l Dickens Oskar 2020-03-12 2020-03-12 [place] [id number] Memoria 19:30:00 19:30:00 Pre-Reg r Radiology 09 l Dickens Gurley 2020-03-12 2020-03-12 Outpatient MHIE MHIE [id number] Memoria 15:00:00 15:00:00 10 l Oskar 2020-03-12 2020-03-12 [facility]oi[facility] [id number] 15:00:00 15:00:00 Cristian Pate 10 2020-03-12 2020-03-12 Outpatient MHIE MHIE [id number] Memoria 14:30:00 14:30:00 11 l Oskar 2020-03-12 2020-03-12 Outpatient MHIE MHIE [id number] Memoria 14:30:00 14:30:00 09 l Gurley 2020-03-12 2020-03-12 Outpatient VISIT, [facility] [id number] 14:30:00 14:30:00 NURSE STWKali 09 MAMMO 2020-01-06 2020-01-06 Telephone [facility] 1.2.052.905 [id number] [facility] 00:00:00 00:00:00 Sunny Jagruti Mcarthur 350.1.13.10 ity of [place] [phone] Nm dical nal 204 [facility] 2020-01-03 2020-01-03 Electro Mechanical Designer Lc, Adc Lab Main [place] 1.2.8 40.114 [id number] Univers 10:38:39 10:53:39 Visit Opal Nguyenjesus Mcarthur 350.1.13.10 ity of [place] [phone] Nm dical nal 353 [facility] 2020-01-03 2020-01-03 Orders Doctor LACY 1.2.840.114 [id number] Univers 00:00:00 00:00:00 Only Unassigned, ENA 350.1.13.10 ity of [place] [facility] 4.2.7.2.686 Neno as [phone] [address] 2019-12-27 2019-12-27 Telephone [facility] 1.2.840.114 [id number] [facility] 00:00:00 00:00:00 [facility] 350.1.13.10 it y of [place] 4.2.7.2.686 [place] Professio [phone] Nm dical nal 044 [facility] 2019-12-23 2019-12-23 Telephone [facility] 1.2.250.602 [id number] 1954 [facility] 00:00:00 00:00:00 Sunny Jagruti [place]arthur 350.1.13.10 ity of [place] [phone] Nm dical nal 377 [facility] 2019-12-21 2019-12-21 Electro Mechanical Designer Lc, Adc Lab Main [facility] 1.2.8 40.114 [id number] Univers 12:57:43 13:12:43 Visit Sunny Nguyen 350.1.13.10 ity of [place].2.[place] [phone] Me dical nal 353 [facility] 2019-12-21 2019-12-21 Telephone Gramm, [facility] 1.2.621.455 [id number] Univers 00:00:00 00:00:00 Sunny Lucaston 350.1.13.10 ity of [place] [phone] [facility] 204 [facility] 2019-12-21 2019-12-21 Orders Doctor LACY 1.2.840.114 [id number] Univers 00:00:00 00:00:00 Only Unassigned, ENA 350.1.13.10 ity of [place] [facility] 4.2.7.2.686 Neno as [phone] [address] 2019-07-28 2019-07-28 Telephone Kourtney, [facility] 1.2.188.803 [id number] Univers 00:00:00 00:00:00 [facility] 350.1.13.10 i ty of [place] 4.2.7.2.686 [place] Professio [phone] [address] Office [facility] 2019-07-26 2019-07-26 Office [facility] 1.2.840.114 [id number] Univers 10:34:11 11:21:22 Visit Glendy [facility] 350.1.13.10 i ty of [facility] 4.2.7.2.686 [place] Professio [phone] [address] Office [facility] 2019-07-26 2019-07-26 Orders Doctor LACY 1.2.840.114 [id number] Univers 00:00:00 00:00:00 Only Unassigned, ENA 350.1.13.10 ity of [place] [facility] 4.2.7.2.686 Neno as [phone] [address] 2019-03-08 2019-03-09 Between nullFlavo [facility] PHOTO RETOUCHER [id number] Memoria 23:23:36 23:23:36 Visit vicky Abreuann 2019-03-08 2019-03-09 Between nullFlavo [facility] PHOTO RETOUCHER [id number] Memoria 23:23:36 23:23:36 Visit vicky Abreuann 2019-03-08 2019-03-09 Outpatient MG MG [id number] 18:23:36 18:23:36 04 2019-03-07 2019-03-08 [place] [id number] Memoria 20:30:00 04:59:59 r Radiology 05 khadar Schmitt 2019-03-07 2019-03-08 [place]Fl[place] [id number] Memoria 20:30:00 04:59:59 r Radiology 05 khadar Larios [place] 2019-03-07 2019-03-08 Outpatient nullFlavo MG PHOTO RETOUCHER 4 [id number] Memoria 19:30:00 04:59:59 r Dickens Rae rubalcava [place] 2019-03-07 2019-03-08 Outpatient nullFlavo MG PHOTO RETOUCHER 4 [id number] Memoria 19:30:00 04:59:59 r Harriet rubalcava [place] 2019-03-07 2019-03-07 Outpatient VISIT, MG MG [id number] 15:30:00 23:59:59 NURSE STWKali Edwina [facility] 2019-03-07 2019-03-07 Outpatient Sangalli, [facility] [id number] 14:30:00 23:59:59 Cristian Pate 2019-03-07 2019-03-07 Outpatient MHIE IE [id number] Memoria 15:30:00 15:30:00 05 khadar Gurley 2019-03-07 2019-03-07 Outpatient MHIE MHIE [id number] Memoria 14:30:00 14:30:00 08 khadar Gurley 2019-02-10 2019-02-10 Ambulatory nullFlavo MG PHOTO RETOUCHER 4 [id number] Memoria 14:00:00 14:00:00 Pre-Reg r Dickens 07 khadar Oskar 2019-02-10 2019-02-10 Ambulatory nullFlavo MG PHOTO RETOUCHER 4 [id number] Memoria 14:00:00 14:00:00 Pre-Reg r Harriet 07 khadar Oskar 2019-02-10 2019-02-10 Outpatient MHIE MHIE [id number] Memoria 09:00:00 09:00:00 07 khadar AbreuOskar 2019-02-10 2019-02-10 Outpatient Sangalli[facility] [id number] 09:00:00 09:00:00 Cristian Pate 07 2018-11-08 2018-11-08 Ambulatory nullFlavo [facility] PHOTO RETOUCHER 4 [id number] Memoria 16:00:00 16:00:00 Pre-Reg r Harriet 06 khadar Schmitt 2018-11-08 2018-11-08 Ambulatory nullFlavo [facility] PHOTO RETOUCHER 4 [id number] Memoria 16:00:00 16:00:00 Pre-Reg r Dickens 06 khadar Oskar 2018-11-08 2018-11-08 Outpatient MHIE IE [id number] Memoria 10:00:00 10:00:00 04 khadar Oskar 2018-11-08 2018-11-08 Outpatient Ivan [facility] [id number] 10:00:00 10:00:00 Cristian Pate 2018-11-08 2018-11-08 Outpatient MHIE IE [id number] Memoria 09:30:00 09:30:00 04 khadar Oskar 2018-01-04 2018-01-04 Ambulatory nullFlavo [facility] PHOTO RETOUCHER 4 [id number] Memoria 15:45:00 15:45:00 Pre-Reg r Dickens 04 khadar Oskar 2018-01-04 2018-01-04 Outpatient Ivan [facility] [id number] 09:45:00 09:45:00 Cristian Rio 2017-11-02 2017-11-03 Outpatient nullFlavo [facility] PHOTO RETOUCHER 4 [id number] Memoria 16:00:00 05:59:59 r Dickens 03 khadar Schmitt 2017-11-02 2017-11-03 Outpatient nullFlavo [facility] PHOTO RETOUCHER 4 [id number] Memoria 16:00:00 05:59:59 r Dickens 03 khadar Oskar 2017-11-02 2017-11-03 Outpatient nullFlavo [facility] [id number] Memoria 15:30:00 05:59:59 r Radiology 02 khadar Harriet Schmitt 2017-11-02 2017-11-03 Outpatient nullFlavo [facility] [id number] Memoria 15:30:00 05:59:59 r Radiology 02 khadar Schmitt 2017-11-02 2017-11-02 Outpatient Ivan [facility] [id number] 10:00:00 23:59:59 Cristian Diana 2017-11-02 2017-11-02 Outpatient VISIT, [facility] [id number] 09:30:00 23:59:59 [address] 02 GUY 2017-11-02 2017-11-02 Outpatient CRISTIAN FOSTER [id number] Memoria 10:00:00 10:00:00 03 khadar Schmitt 2017-11-02 2017-11-02 Outpatient CRISTIAN FOSTER [id number] Memoria 09:30:00 09:30:00 02 khadar Schimtt 2017-10-28 2017-10-28 Outpatient Kali DAVIS, [facility] [id number] 14:55:00 14:55:00 [facility] 2016-10-29 2016-10-29 Outpatient CRISTIAN FOSTER [id number] Memoria 14:00:00 14:00:00 khadar Schmitt 2016-10-29 2016-10-29 Outpatient CRISTIAN FOSTER [id number] Memoria 14:00:00 14:00:00 khadar Schmitt 2016-10-29 2016-10-29 Outpatient CRISTIAN FOSTER [id number] Memoria 13:30:00 13:30:00 00 khadar Schmitt 2016-10-29 2016-10-29 Outpatient CRISTIAN FOSTER [id number] Memoria 13:30:00 13:30:00 00 khadar Schmitt Results Test Description Test Time Test Comments [...] NEGATIVE N BILIRUBIN; Normal (test code = 21417-2) NEGATIVE NEGATIVE N KETONES; Normal (test code = 33660-1) NEGATIVE NEGATIVE N OCCULT BLOOD; Abnormal (test code = 39767-9) TRACE NEGATIVE A PROTEIN; Normal (test code = 39149-4) NEGATIVE NEGATIVE N NITRITE (test code = NITRITE) NEGATIVE NEGATIVE N LEUKOCYTE ESTERASE (test code = LEUKOCYTE NEGATIVE NEGATIVE N ESTERASE) WBC; Normal (test code = 6690-2) NONE SEEN < OR = 5 N RBC; Normal (test code = 789-8) NONE SEEN < OR = 2 N SQUAMOUS EPITHELIAL CELLS; Normal (test code = NONE SEEN < OR = 5 N 80264-9) BACTERIA; Normal (test code = 630-4) NONE SEEN NONE SEEN N HYALINE CAST; Normal (test code = 76097-6) NONE SEEN NONE SEEN N REFLEXIVE URINE CULTURE (test code = REFLEXIVE NO CULTURE INDICATED URINE CULTURE) [facility][Q] THINPREP TIS AND HPV mRNA E6/[id number] 00:00:00 Test Item Value Reference Range Interpretation [...] l lesion (test code = or malignancy. 22661-7) COMMENT:; Normal See Comment N This Pap te st has been (test code = [place] 83692-9) [employer] technology. ONLINE SERVICES MANAGER: See Comment N ABS, CT( CP)CT (test code = screening locat ion: ONLINE SERVICES MANAGER: Keshawn Hurst [id number] [place] ) CAM[place] [id number] REVIEW See Comment N PAUL, CT(ASCP)CT ONLINE SERVICES MANAGER: screening location: (test code = Optimal+ [id number] 0 [place] REVIEW [place] Perez [id number] ONLINE SERVICES MANAGER: ) HPV mRNA E6/E7 Not Detected Not Detected N This test was performed (test code = HPV using the A PTIMA HPV mRNA E6/E7) Assay ([employer].). This assay dete cts E6/E7 viral messenger RNA (mRNA) from 14h igh-risk HPV types (16,18,31,33,35 ,39,45,51 ,52,56,58,59,66 ,68). The analytical perf ormance characteristics ofthis assay have been determined by [employer]. The modifications h ave not beencleared [...] hist oric and current clinica l information. [place] PhysiciansProthrombin Time and [id number] 09:16:02 Test Item Value Reference Range Interpretation Comments Prothrombin Time (test code = 12.0 seconds 9.8-13.4 Prothrombin Time) INR (test code = INR) 1.0 ratio 0.6-1.2 Partial Thromboplastin [id number] 09:16:02 Test Item Value Reference Range Interpretation Comments Partial Thromboplastin Time 31.20 seconds 24.39-37.25 (test code = Partial Thromboplastin Time) Comprehensive Metabolic [id number] 09:12:33 Test Item Value Reference Range Interpretation [...] A/G 1.6 ratio N Ratio) Comprehensive Metabolic [id number] 09:12:33 Test Item Value Reference Range Interpretation [...] National Kidney Foundation, http://nkdep.ni h.gov Comprehensive Metabolic [id number] 09:12:33 Test Item Value Reference Range Interpretation [...] ag e have not been validated by e MDRD study and should be interpreted [...] ag e have not been validated by e MDRD study and should be interpreted wit h caution. eGFR R esult Interpretation: eGFR > or = 60 is in the Normal RangeeGF R < 60 may mean kid derek diseaseeGFR < 1 5 may mean kidney failure Rang es recommended by the [employer], [email or web address].ni [email or web address].gov Complete Blood Count with [id number] 09:09:24 Test Item Value Reference Range Interpretation [...] code = IPF) 0 % N Automated [id number] 09:09:24 Test Item Value Reference Range Interpretation Comments Neutro Auto (test code = Neutro 64.1 % 36.0-70.0 Auto) Lymph Auto (test code = Lymph Auto) 22.0 % 12.0-44.0 Knott Auto (test code = Knott Auto) 12.1 % 0.0-11.0 H Eos, Auto (test code = Eos, Auto) 1.1 % 0.0-7.0 Basophil Auto (test code = Basophil 0.5 % 0.0-2.0 Auto) Neutro Absolute (test code = Neutro 4.2 x10 1.6-7.4 Absolute) Lymph Absolute (test code = Lymph 1.44 x10 .50-4.60 Absolute) Knott Absolute (test code = Knott .79 x10 .00-1.20 Absolute) Eos Absolute (test code = Eos 0.07 x10 0.00-0.74 Absolute) Baso Absolute (test code = Baso 0.03 x10 0.00-0.21 Absolute) IG [id number] 09:09:24 Test Item Value Reference Range Interpretation Comments IG (test code = IG) 0.2 % 0.0-5.0 IG Abs (test code = IG Abs) 0 x10 N Thyroxine (T4)2017-10-29 23:18:00 Test Item Value Reference Range Interpretation Comments T4, Total (test code = TT4) 8.8 ug/dL 4.6-12.0 N Notes Date/Time Note Provider Source 2020-05-01 14:24:34-00:00 [facility] BILATERAL DIGITAL SCREENING MAMMOGRAM WITH CAD: 05/01/2020 CLINICAL: Screening/Screening. Current study was evaluated with a Fiber Optic Assembly Worker d Detection (CAD) system. COMPARISON:Comparison is mad e to exams dated: 03/07/2019 mammogram, 11/02/2017 mammogram, 10/29/2016 mammogram, and 03/01/2015 mammogram - [facility]. TECHNIQUE: Mammographic view s were obtained using [...] is recommended.(05/02/2021) This exam was interpreted at [id number] for [facility]. Donna Regalado M.D. ap/penrad:05/01/2020 15:52:16 Supervisor Central Supply(s): Kira Hummel, [facility] letter sent: BI-RADS 1/2 Mammogram BI-RADS: 2 Benign 2019-03-07 14:23:00-00:00 Tian Moya BILATERAL DIGITAL SCREENING MAMMOGRAM WITH CAD: 03/07/2019 CLINICAL: Screening/Screening. Current study was evaluated with a Fiber Optic Assembly Worker d Detection (CAD) system. COMPARISON:Comparison is mad e to exams dated: 11/02/2017 mammogram, 10/29/2016 mammogram, 03/01/2015 mammogram, and 02/23/2014 mammogram - [facility]. TECHNIQUE: Mammographic view s were obtained using [...] is recommended.(03/07/2020) This exam was interpreted at [id number] for [facility]. Carla fields/jhon:03/07/2019 15:29:05 Supervisor Central Supply(s): Kira Hummel, [facility] letter sent: BI-RADS 1/2 Mammogram BI-RADS: 2 Benign 2017-11-02 14:22:29-00:00 Tian Moya CLINICAL: /Screening. Current study was evaluated with a Fiber Optic Assembly Worker d Detection (CAD) system. COMPARISON:Comparison is mad e to exams dated: 10/29/2016 mammogram, 03/01/2015 mammogram, and 02/23/2014 mammogram - [facility]. TECHNIQUE: Mammographic view s were obtained using [...] is recommended.(11/03/2018) This exam was interpreted at [id number] for [facility]. Carla fields/penrad:11/02/2017 14:30:22 Supervisor Central Supply(s): Jeremy Maguire, [facility] letter sent: BI-RADS 1/2 Mammogram BI-RADS: 2 Benign 2016-10-29 13:17:38-00:00 - DIGITAL MAMMO SCREENING ROBERT [facility] BILATERAL DIGITAL SCREENING MAMMOGRAM WITH CAD: 10/29/2016 CLINICAL: Screening. Current study was evaluated with a Fiber Optic Assembly Worker d Detection (CAD) system. Comparison is made to exam d ated: 03/01/2015 mammogram - [facility]. There are scattered fibroglandular densities in both breasts. There are benign calcifications in both breasts. No significant masses, calci fications, or other findings are seen in either breast. There has been no significant interval change. IMPRESSION: BENIGN There is no mammographic deysi dence of malignancy. A 1 year screening mammogram is recommended. Marin vora/penrad:11/06/2016 11:00:02 Supervisor Central Supply: Mahnaz Hummel, [facility] This exam was dictated and i nterpreted by [id number] for [facility]. letter sent: Normal exam Mammogram BI-RADS: 2 Benign
--- NOTE | 2023-05-22 08:44 | RAD REPORT ---
EXAM DESCRIPTION: CT - Ct Stroke Brain Wo Cont - 05/22/2023 8:27 am CLINICAL HISTORY: STROKE ALERT COMPARISON: Head angio dated 11/15/2020; Head Brain Wo Cont dated 11/15/2020 TECHNIQUE: Noncontrast head CT images ad were obtained without IV contrast. Multiplanar reformats we re generated and reviewed. All CT scans are performed using dose optimization technique as appropriate and may include automated exposure control or mA/KV adjustment according to patient size. FINDINGS: No intracranial hemorrhage, mass, or edema. Midline structures are unremarkable. Normal ventricular caliber for age. Jimenez-white matter differentiation is preserved, without evidence of acute infarct. No abnormal extra- axial fluid collections. Mastoid air cells and visualized portions of the paranasal sinuses are clear. No acute bony findings. IMPRESSION: No evidence of an acute intracranial process. The findings were communicated to Jefferson Mauricio on 05/22/2023 at 08:39 hours.
[2023-05-22 09:01] LABS: Absolute Lymphocytes (CBC) 1.3 K/uL (0.7-4.9); Hematocrit 39.8 % (36.0-45.0); Lymphocytes % 22.1 % (15.3-44.8); MCV 87.1 fL (80-100); MPV 8.2 fL (7.6-11.3); RBC Red Blood Cell Count 4.57 M/uL (3.86-4.86)
[2023-05-22 09:02] LABS: Protime INR 0.95
[2023-05-22 09:16] LABS: Albumin 3.6 g/dL (3.4-5.0); Bilirubin Direct 0.2 mg/dL (0-0.2); Bilirubin Indirect, Calculated 0.6 mg/dL (0.2-0.8); Bilirubin Total 0.8 mg/dL (0.2-1.0); Magnesium 2.2 mg/dL (1.6-2.4); Potassium 3.4 mEq/L (3.5-5.1); Protein, Total 7.4 g/dL (6.4-8.2); Troponin High Sensitivity 6.4 pg/mL (<58.9)
[2023-05-22] MEDS ORDERED: ONDANSETRON 4 MG/2 ML VIAL ONE ×2 (09:19→12:16)
[2023-05-22 09:40] LABS: Specific Gravity 1.013 (1.005-1.030); Urine Bacteria None Seen /HPF (<20); Urine Bilirubin NEGATIVE (Negative); Urine Blood 1+ (Negative); Urine Clarity Clear (Clear); Urine Color Light-Yellow (Yellow); Urine Glucose NEGATIVE (Negative); Urine Mucus Slight /HPF (None Seen); Urine Protein NEGATIVE (Negative); Urine RBC <5 /HPF (None Seen); Urine Urobilinogen Normal (Normal); Urine pH 7.5 (5.0-7.0)
--- NOTE | 2023-05-22 09:45 | RAD REPORT ---
[facility] CLINICAL HISTORY: CHEST PAIN COMPARISON: Chest Single View dated 11/15/2020; Chest Pa And Lat (2 Views) dated 07/29/2016; CHEST SI NGLE VIEW dated 04/07/2013 TECHNIQUE: Portable AP view of the chest. FINDINGS: The lungs are clear. No pneumothorax or effusion. The cardiomediastinal contours are unre markable. IMPRESSION: No acute cardiopulmonary process.
--- NOTE | 2023-05-22 11:02 | RAD REPORT ---
EXAM DESCRIPTION: MRI - Brain Wo Cont - 05/22/2023 10:50 am CLINICAL HISTORY: NUMBNESS COMPARISON: Noncontrast head CT of the same day TECHNIQUE: Multiplanar multisequence MRI of the brain performed without IV contrast. FINDINGS: Mild motion artifact somewhat limits. No evidence of acute infarct or other diffusion signal abnormality. No evidence of acute intracranial hemorrhage or abnormal extra-axial fluid collections. Ventricular caliber within normal for age. Midline structures are unremarkable. No significant white matter signal abnormalities. No mass effect or midline shift. Stable punctate focus of susceptibility signal abnormality within the right cerebellar tonsil, sugges tive of a small cavernoma. Major vascular flow voids are preserved. Mastoid air cells and paranasal sinuses are clear. IMPRESSION: No acute intracranial process. No evidence of ventriculomegaly or mass effect. 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
--- NOTE | 2023-05-22 12:21 | EDPHYS ---
Physician Documentation [facility] Name: Sera Min Age: 73 yrs Sex: Female : 1950 Arrival Date: 05/22/2023 Time: 08:11 Bed 4 Private MD: Eder Coyle ED Physician Jefferson Mauricio HPI: 05/22 08:19 This 73 yrs old Female presents to ER via Unassigned with complaints of Numbness, kb Dizziness. 08:19 Patient is a 73-year-old female with a history of hypertension and hyperlipidemia who kb presents for left-sided numbness that has been intermittent since 0400, left-sided chest pressure and dizziness. Dizziness is exacerbated by changing position. Denies nausea, vomiting, shortness of breath. Currently reports slight tingling to left arm without numbness. Patient took 2-81 mg aspirin this morning. Patient sees Dr. Mcgarry for cardiology and Dr. Chapman for PCP. . Historical: - Allergies: 08:20 Codeine; cm10 - PMHx: 08:20 Hypertension; Hypercholesterolemia; cm10 - PSHx: 08:20 heart cath x 2; cm10 - Immunization history:: Client reports receiving the 2nd dose of the Covid vaccine. - Social history:: Smoking status: Patient denies any tobacco usage or history of. ROS: 08:22 Constitutional: Negative for fever, chills, and weight loss. kb 08:22 Cardiovascular: Positive for chest pain, Negative for edema, orthopnea, palpitations, paroxysmal nocturnal dyspnea. 08:22 Neuro: Positive for numbness, tingling, of the left arm. 08:22 All other systems are negative. Exam: 08:22 Constitutional: This is a well developed, well nourished patient who is awake, alert, kb and in no acute distress. Head/Face: Normocephalic, atraumatic. ENT: Moist Mucous membranes Cardiovascular: Regular rate and rhythm with a normal S1 and S2. No gallops, murmurs, or rubs. No pulse deficits. Respiratory: Respirations even and unlabored. No increased work of breathing. Talking in full sentences Abdomen/GI: Soft, non-tender. No distention Skin: Warm, dry with normal turgor. Normal color. MS/ Extremity: Pulses equal, no cyanosis. Neurovascular intact. Full, normal range of motion. Neuro: Awake and alert, GCS 15, oriented to person, place, time, and situation. Moves all extremities. Normal gait. 08:22 Back: pain, that is mild, of the left trapezius. 09:01 ECG was reviewed by the Attending Physician. Vital Signs: 08:21 BP 191 / 93; Pulse 72; Resp 17; Temp 98.1; Pulse Ox 97% on R/A; Weight 97.52 kg; Height cm10 5 ft. 3 in. ; Pain 5/10; 08:44 BP 175 / 85 LA Supine; Pulse 65; Resp 19; Pulse Ox 97% on R/A; ld1 08:46 BP 180 / 92 Sitting; Pulse 68; Resp 15; Pulse Ox 98% ; ld1 08:48 BP 174 / 100 Standing; Pulse 71; Resp 22; Pulse Ox 98% on R/A; ld1 09:21 BP 189 / 83; Pulse 63; Resp 18; Pulse Ox 96% on R/A; ld1 09:41 BP 168 / 65; Pulse 59; Resp 16; Pulse Ox 99% ; ko1 11:24 BP 190 / 86; Pulse 61; Resp 18; Pulse Ox 98% on R/A; ld1 11:58 BP 166 / 80; Pulse 63; Resp 18; Pulse Ox 97% on R/A; ld1 12:28 BP 186 / 79; Pulse 58; Resp 18; Pulse Ox 99% ; ko1 15:10 BP 149 / 68; Pulse 63; Resp 18; Pulse Ox 97% ; ls5 08:21 Body Mass Index 38.09 (97.52 kg, 160.02 cm) cm10 08:21 Pain Scale: Adult cm10 MDM: 08:13 Patient medically screened. rn 08:23 Differential diagnosis: abnormal EKG, acute myocardial infarction, coronary artery kb disease CVA, radiculopathy. The patient was not given aspirin in the Emergency Department. Patient reports taking aspirin within the past 24 hours. Data reviewed: vital signs, nurses notes. 12:07 Consideration of Admission/Observation Patient was admitted/placed on observation. Management of patient was discussed with the following: Hospitalist: Dr Nassar. Counseling: I had a detailed discussion with the patient and/or guardian regarding: the historical points, exam findings, and any diagnostic results supporting the discharge/admit diagnosis, lab results, radiology results, the need for further work-up and treatment in the hospital. 12:19 Care significantly affected by the following chronic conditions: Hypertension, high kb cholesterol. 12:20 ED course: HEART score 4. kb 05/22 08:16 Order name: Basic Metabolic Panel; Complete Time: 09:21 kb 05/22 08:16 Order name: CBC with Diff; Complete Time: 09:21 kb 05/22 08:16 Order name: Hepatic Function; Complete Time: 09:21 kb 05/22 08:16 Order name: Magnesium; Complete Time: 09:21 kb 05/22 08:16 Order name: Protime (+inr); Complete Time: 09:21 kb 05/22 08:16 Order name: Ptt, Activated; Complete Time: 09:21 kb 05/22 08:16 Order name: Troponin High Sensitivity; Complete Time: 09:21 kb 05/22 08:16 Order name: Urinalysis w/ reflexes; Complete Time: 09:47 kb 05/22 13:38 Order name: Basic Metabolic Panel EDMS 05/22 13:38 Order name: Basic Metabolic Panel EDMS 05/22 13:38 Order name: CBC with Automated Diff EDMS 05/22 13:38 Order name: CBC with Automated Diff EDMS 05/22 13:38 Order name: Lipid Profile EDMS 05/22 13:38 Order name: Lipid Profile EDMS 05/22 13:38 Order name: Troponin High Sensitivity EDMS 05/22 13:38 Order name: Troponin High Sensitivity EDMS 05/22 13:38 Order name: Troponin High Sensitivity EDMS 05/22 13:38 Order name: Troponin High Sensitivity; Complete Time: 17:26 EDMS 05/22 08:16 Order name: Chest Single View XRAY; Complete Time: 09:47 kb 05/22 08:16 Order name: CT Stroke Brain w/o Contrast; Complete Time: 08:44 kb 05/22 08:28 Order name: MRI - Brain Wo Cont; Complete Time: 11:21 kb 05/22 13:38 Order name: Echo with Doppler EDMS 05/22 08:16 Order name: EKG; Complete Time: 08:18 kb 05/22 13:38 Order name: CONS Physician Consult EDMS 05/22 13:38 Order name: Heart Healthy EDMS 05/22 08:16 Order name: Cardiac monitoring; Complete Time: 08:54 kb 05/22 08:16 Order name: EKG - Nurse/Tech; Complete Time: 08:54 kb 05/22 08:16 Order name: IV Saline Lock; Complete Time: 08:54 kb 05/22 08:16 Order name: Labs collected and sent; Complete Time: 08:54 kb 05/22 08:16 Order name: NPO; Complete Time: 08:21 kb 05/22 08:16 Order name: O2 Per Protocol; Complete Time: 08:21 kb 05/22 08:16 Order name: O2 Sat Monitoring; Complete Time: 08:21 kb 05/22 08:16 Order name: Orthostatics; Complete Time: 08:54 kb EC:01 Rate is 68 beats/min. Rhythm is regular. QRS [place] is Normal. MO interval is normal at kb 166 msec. QRS interval is normal at 148 msec. QT interval is normal at 489 msec. Administered Medications: 09:18 Drug: Ondansetron IVP 4 mg Route: IVP; Site: left forearm; ld1 10:20 Follow up: Response: No adverse reaction ko1 12:11 Drug: Ondansetron IVP 4 mg Route: IVP; Site: left forearm; ko1 12:39 Follow up: Response: No adverse reaction; Nausea is decreased ko1 Disposition Summary: 05/22/23 12:20 Hospitalization Ordered Hospitalization Status: Observation kb Provider: Hitesh Nassar Condition: Stable kb Problem: new kb Symptoms: are unchanged kb Bed/Room Type: Standard kb Location: Telemetry/MedSurg (observation)(05/22/23 16:14) ja1 Room Assignment: [facility](05/22/23 16:14) ja1 Diagnosis - Chest pain, unspecified kb Forms: - Medication Reconciliation Form kb - SBAR form kb Addendum: 05/25/2023 10:52 Co-signature as Attending Physician, Jefferson Mauricio MD I reviewed the patient's care r n provided by the Advanced Practice Provider and agree with the diagnosis and treatment plan. Signatures: Dispatcher [employer] Pippa Betancur, MANAGER APPLE-C MANAGER APPLE-Ckb Jefferson Mauricio MD MD rn Leal, Jahala RN RN jl7 Matt Jang RN RN ja1 Florence Ivan RN RN ld1 Vee Swenson RN RN ko1 Nicole Mcintosh RN RN cm10 Corrections: (The following items were deleted from the chart) 05/22 08:22 08:19 Patient is a 73-year-old female with a history of hypertension and hyperlipidemia kb who presents for left-sided numbness that has been intermittent since 0400, left-sided chest pressure and dizziness. Dizziness is exacerbated by changing position. Denies nausea, vomiting, shortness of breath. Patient took 2-81 mg aspirin this morning. Patient sees Dr. Mcgarry for cardiology and Dr. Chapman for PCP. . kb 14:56 12:20 Telemetry/MedSurg (observation) jl7 14:56 12:20 kb jl7 16:14 14:[address] [facility] ER HOLD 7 ja1 16:14 14:56 ERHOLD- [facility] ja1
--- NOTE | 2023-05-22 12:21 | ER ---
Nurse's Notes [facility] Name: Sera Min Age: 73 yrs Sex: Female : 1950 Arrival Date: 05/22/2023 Time: 08:11 Bed 4 Private MD: Eder Coyle Diagnosis: Chest pain, unspecified Presentation: 05/22 08:21 Chief complaint: Patient states: Dizzy, L sided CP since 4 AM. L arm felt numb earlier, cm10 now tingling. + nausea. Coronavirus screen: Vaccine status: Patient reports receiving the 2nd dose of the covid vaccine. Client denies travel out of the [place] in the last 14 days. At this time, the client does not indicate any symptoms associated with coronavirus-19. Ebola Screen: Patient denies travel to an Ebola-affected area in the 21 days before illness onset. Initial Sepsis Screen: Does the patient meet any 2 criteria? No. Patient's initial sepsis screen is negative. Does the patient have a suspected source of infection? No. Patient's initial sepsis screen is negative. Risk Assessment: Do you want to hurt yourself or someone else? Patient reports no desire to harm self or others. Onset of symptoms was May 22, 2023. 08:21 Method Of Arrival: Wheelchair cm10 08:21 Acuity: LUCIANA 2 cm10 Triage Assessment: 08:22 General: Appears distressed, uncomfortable, Behavior is calm, cooperative, appropriate cm10 for age. Pain: Complains of pain in L chest Pain currently is 5 out of 10 on a pain scale. Quality of pain is described as pressure, Pain began 4 hours ago. Neuro: Reports dizziness, numbness. Cardiovascular: Reports chest pain, lightheadedness, nausea. Respiratory: No deficits noted. Historical: - Allergies: 08:20 Codeine; cm10 - PMHx: 08:20 Hypertension; Hypercholesterolemia; cm10 - PSHx: 08:20 heart cath x 2; cm10 - Immunization history:: Client reports receiving the 2nd dose of the Covid vaccine. - Social history:: Smoking status: Patient denies any tobacco usage or history of. Screenin:24 [facility] ED Fall Risk Assessment (Adult) History of falling in the last 3 months, ld1 including since admission No falls in past 3 months (0 pts). Abuse screen: Denies threats or abuse. Denies injuries from another. Nutritional screening: No deficits noted. Tuberculosis screening: No symptoms or risk factors identified. Assessment: 08:24 Reassessment: Pt in CT. ld1 08:26 Reassessment: See triage assessment. ld1 09:41 Reassessment: Patient appears in no apparent distress at this time. Patient and/or ko1 family updated on plan of care and expected duration. Pain level reassessed. Patient is alert, oriented x 3, equal unlabored respirations, skin warm/dry/pink. 11:24 Reassessment: Patient appears in no apparent distress at this time. No changes from ld1 previously documented assessment. Patient and/or family updated on plan of care and expected duration. Pain level reassessed. 12:28 Reassessment: Patient appears in no apparent distress at this time. No changes from ko1 previously documented assessment. Patient and/or family updated on plan of care and expected duration. Pain level reassessed. Patient is alert, oriented x 3, equal unlabored respirations, skin warm/dry/pink. 17:41 Reassessment: Patient appears in no apparent distress at this time. No changes from ko1 previously documented assessment. Patient and/or family updated on plan of care and expected duration. Pain level reassessed. Patient is alert, oriented x 3, equal unlabored respirations, skin warm/dry/pink. 17:45 Reassessment: called to give report to 2nd floor, nurse is doing a stat ekg and will ko1 call me back. 18:02 Reassessment: attempted to call report again, Tatyana states that the nurse who is ko receiving this patient and the charge nurse are in another patients room who is having chest pain. Vital Signs: 08:21 BP 191 / 93; Pulse 72; Resp 17; Temp 98.1; Pulse Ox 97% on R/A; Weight 97.52 kg; Height cm10 5 ft. 3 in. ; Pain 5/10; 08:44 BP 175 / 85 LA Supine; Pulse 65; Resp 19; Pulse Ox 97% on R/A; ld1 08:46 BP 180 / 92 Sitting; Pulse 68; Resp 15; Pulse Ox 98% ; ld1 08:48 BP 174 / 100 Standing; Pulse 71; Resp 22; Pulse Ox 98% on R/A; ld1 09:21 BP 189 / 83; Pulse 63; Resp 18; Pulse Ox 96% on R/A; ld1 09:41 BP 168 / 65; Pulse 59; Resp 16; Pulse Ox 99% ; ko1 11:24 BP 190 / 86; Pulse 61; Resp 18; Pulse Ox 98% on R/A; ld1 11:58 BP 166 / 80; Pulse 63; Resp 18; Pulse Ox 97% on R/A; ld1 12:28 BP 186 / 79; Pulse 58; Resp 18; Pulse Ox 99% ; ko1 15:10 BP 149 / 68; Pulse 63; Resp 18; Pulse Ox 97% ; ls5 08:21 Body Mass Index 38.09 (97.52 kg, 160.02 cm) cm10 08:21 Pain Scale: Adult cm10 ED Course: 08:13 Patient arrived in ED. am2 08:13 Eder Coyle MD is Private Physician. am2 08:13 Jefferson Mauricio MD is Attending Physician. rn 08:16 [facility]ipp[facility]C [facility] kb 08:20 Arm band placed on Patient placed in an exam room, on a stretcher. cm10 08:22 Triage completed. cm10 08:24 Patient has correct armband on for positive identification. Placed in gown. Bed in low ld1 position. Call light in reach. Side rails up X2. cardiac monitor technician on. Pulse ox on. NIBP on. Door closed. Noise minimized. Warm blanket given. 08:24 No provider procedures requiring assistance completed. ld1 08:29 CT Stroke Brain w/o Contrast In Process Unspecified. EDMS 08:54 Florence Ivan, RN is Primary Nurse. ld1 08:56 Inserted saline lock: 20 gauge in left forearm, using aseptic technique. Blood ld1 collected. 09:18 Urinalysis w/ reflexes Sent. ld1 09:32 Chest Single View XRAY In Process Unspecified. EDMS 10:45 MRI - Brain Wo Cont In Process Unspecified. EDMS 12:20 Hitesh Nassar MD is Hospitalizing Provider. kb 18:20 Patient admitted, IV remains in place. ko1 Administered Medications: 09:18 Drug: Ondansetron IVP 4 mg Route: IVP; Site: left forearm; ld1 10:20 Follow up: Response: No adverse reaction ko1 12:11 Drug: Ondansetron IVP 4 mg Route: IVP; Site: left forearm; ko1 12:39 Follow up: Response: No adverse reaction; Nausea is decreased ko1 Medication: 08:24 VIS not applicable for this client. ld1 Outcome: 12:20 Decision to Hospitalize by Provider. kb 17:42 Admitted to Tele accompanied by tech, via wheelchair, room 211, with oxygen, with chart.ko1 17:42 Condition: improved 17:42 Instructed on the need for admit. 18:20 Patient left the ED. ko1 Signatures: Dispatcher [employer] EDMS Pippa Hansen, WORK CAR OPERATOR-C WORK CAR OPERATOR-Ckb Jefferson Mauricio MD MD rn Moreno, Amanda am2 Sims, Lauren RN RN ld1 Vee Swenson RN RN ko1 Tomer Ramírez ls5 Nicole Mcintosh, RN RN cm10 Corrections: (The following items were deleted from the chart) 18:03 18:00 Reassessment: called to give report to 2nd floor, nurse is doing a stat ekg and ko1 will call me back. ko1
[2023-05-22] MEDS ORDERED: ALPRAZOLAM 0.25 MG TABLET PO PRN (13:31)
[2023-05-22] MEDS: ENOXAPARIN 40 MG/0.4 ML SQ SCH (14:00)
[2023-05-22] MEDS ORDERED: ENOXAPARIN 40 MG/0.4 ML SQ ONE (15:40)
--- NOTE | 2023-05-22 17:51 | P.HP ---
Certification for Inpatient Patient admitted to: Observation With expected LOS: <2 Midnights Patient will require the following post-hospital care: None Practitioner: I am a practitioner with admitting privileges, knowledge of patient current condition, hospital course, and medical plan of care. Services: Services provided to patient in accordance with Admission requirements found in Title 42 Section 412.3 of the Code of Federal Regulations Patient History Date of Service: 05/22/23 Reason for admission: Chest pain r/o ACS History of Present Illness: Pt is a 73yo who was admitted to the hospital for chest pain. Patient has a history of coronary artery disease but has not required intervention. She has had 2 cardiac catheterizations that have been normal. She had a stress test which has been done in November that did not require cardiac catheterization. She states she is been having some chest discomfort. Pain mainly in the sternal region. She will be admitted to the hospital for further evaluation. Allergies codeine [Codeine] Adverse Reaction (Verified 04/07/13 09:38) hallucinates Home Medications: Aspirin 81 mg PO DAILY 04/07/13 Atorvastatin Calcium [Lipitor*] 20 mg PO BEDTIME 04/07/13 Lisinopril/Hydrochlorothiazide [Zestoretic 20-12.5 Tablet] 1 each PO DAILY 04/07/13 Diclofenac Na [Voltaren D.r*] 75 mg PO DAILY 11/16/20 Esomeprazole Magnesium [Nexium 24Hr] 20 mg PO DAILY 11/16/20 Fluticasone [Flonase 50MCG Nasal [place]*] 2 sprays NS DAILY 11/16/20 Metoprolol Tartrate [Lopressor*] 25 mg PO BID 11/16/20 Trospium Chloride [Sanctura] 20 mg PO DAILY 11/16/20 - Past Medical/Surgical History Diabetic: No -: Coronary artery disease -: Hypertension -: Arthritis -: Cardiac catheterization - Family History Father Family History: Reviewed- Non-Contributory - Social History Smoking Status: Former smoker Alcohol use: No CD- Drugs: No Caffeine use: Yes Review of Systems 10-point ROS is otherwise unremarkable Physical Examination - Vital Signs Temperature: 98 F Blood Pressure: 140/80 Pulse: 80 Respirations: 18 Pulse Ox (%): 95 - Physical Exam General: Alert, In no apparent distress, Oriented x3 HEENT: Atraumatic, PERRLA, Mucous membr. moist/pink, EOMI, Sclerae nonicteric Neck: Supple, 2+ carotid pulse no bruit, No LAD, Without JVD or thyroid abnormality Respiratory: Clear to auscultation bilaterally, Normal air movement Cardiovascular: Regular rate/rhythm, Normal S1 S2 Gastrointestinal: Normal bowel sounds, Soft and benign, Non-distended, No tenderness Musculoskeletal: No clubbing, No swelling, No tenderness Integumentary: No rashes Neurological: Normal gait, Normal speech, Normal strength at 5/5 x4 extr, Normal tone, Sensation intact, Cranial nerves 3-12 intact, Normal affect Lymphatics: No axilla or inguinal lymphadenopathy - Studies Laboratory Data (last 24 hrs) 05/22/23 08:47: PT 10.5, INR 0.95, APTT 34.1 05/22/23 08:47: WBC 5.80, Hgb 13.4, Hct 39.8, Plt Count 183 05/22/23 08:47: Sodium 137, Potassium 3.4 L, BUN 14, Creatinine 0.94, Glucose 121 H, Magnesium 2.2, Total Bilirubin 0.8, AST 20, ALT 35, Alkaline Phosphatase 75 Assessment & Plan - Problems (Diagnosis) (1) Chest pain Current Visit: No Status: Acute Qualifiers: (2) Coronary artery disease Current Visit: No Status: Acute (3) Hypertension Current Visit: No Status: Chronic - Plan -High-sensitivity troponin -Cardiology consultation -Stress test in November was WNL -Repeat EKG -Work-up for other etiologies of cardiac chest pain if troponins remain negative -Lipid profile -Robotics Engineer regarding modifying risk for cardiac disease Discharge Plan: Home Plan to discharge in: 24 Hours - Advance Directives Does patient have a Living Will: Yes Does patient have a Durable POA for Healthcare: No - Code Status/Comfort Care Code Status Assessed: Yes Code Status: Full Code Critical Care: No Time Spent Managing PTS Care (In Minutes): 50
[2023-05-22 18:37] VITALS: BMI 38.0
[2023-05-22] MEDS: ACETAMINOPHEN 500 MG TAB PO PRN (18:44)
[2023-05-22] MEDS: METOPROLOL TAR 25 MG TAB PO SCH (20:31)
[2023-05-22] MEDS: ATORVASTATIN 20 MG TAB PO SCH (20:32)
[2023-05-23 01:20] VITALS: O2SAT 96
[2023-05-23] MEDS: ACETAMINOPHEN 500 MG TAB PO PRN ×2 (01:20→08:24)
[2023-05-23 07:14] LABS: Absolute Lymphocytes (CBC) 1.4 K/uL (0.7-4.9); Hematocrit 39.2 % (36.0-45.0); Lymphocytes % 28.2 % (15.3-44.8); MCV 87.3 fL (80-100); MPV 8.3 fL (7.6-11.3); RBC Red Blood Cell Count 4.48 M/uL (3.86-4.86)
[2023-05-23 07:31] LABS: Potassium 3.3 mEq/L (3.5-5.1)
[2023-05-23] MEDS: ASPIRIN EC 81 MG TAB PO SCH (08:18)
[2023-05-23] MEDS: PANTOPRAZOLE 40MG TABLET PO SCH (08:19)
[2023-05-23] MEDS: ENOXAPARIN 40 MG/0.4 ML SQ SCH (08:19)
[2023-05-23] MEDS: lisinopriL 10 MG TAB PO SCH (08:32)
[2023-05-23] MEDS: METOPROLOL TAR 25 MG TAB PO SCH ×2 (08:32→21:08)
[2023-05-23] MEDS ORDERED: ESOMEPRAZOLE MAGNESIUM 20 MG PO SCH (09:00)
[2023-05-23] MEDS ORDERED: ASPIRIN 325 MG TAB PO SCH (09:00)
[2023-05-23] MEDS ORDERED: LOPERAMIDE HCL 2 MG CAPSULE PO ONE (10:19)
[2023-05-23] MEDS: ATORVASTATIN 20 MG TAB PO SCH (21:08)
[2023-05-24] MEDS: ASPIRIN EC 81 MG TAB PO SCH (10:22)
[2023-05-24] MEDS: PANTOPRAZOLE 40MG TABLET PO SCH (10:22)
[2023-05-24] MEDS: lisinopriL 10 MG TAB PO SCH (10:22)
[2023-05-24] MEDS: METOPROLOL TAR 25 MG TAB PO SCH (10:22)
[2023-05-24] MEDS: ENOXAPARIN 40 MG/0.4 ML SQ SCH (10:22)
[2023-05-24 11:59] VITALS: BP 126/92; TEMP 97.9
--- NOTE | 2023-05-24 14:26 | EKG ---
Test Date: 2023-05-22 Test Time: 08:56:05 Recreation Specialist: ALLY MEASUREMENT RESULTS: Intervals: Rate: 68 NE: 166 QRSD: 148 QT: 460 QTc: 489 [place]: P: 76 NE: 166 QRS: 59 T: 36 INTERPRETIVE STATEMENTS: Normal sinus rhythm Left bundle branch block Abnormal ECG Compared to ECG 11/15/2020 23:03:53 No significant changes Electronically Signed On 05-24-23 14:24:08 CDT by Ricky Mcgarry
--- NOTE | 2023-05-25 08:50 | ECHO ---
HEIGHT: 5 ft 3 in WEIGHT: 215 lb 0 oz DATE OF STUDY: 05/22/[address]: Hitesh Nassar MD 2-DIMENSIONAL: YES M.MODE: YES DOPPLER: YES COLOR FLOW: YES TDS: PORTABLE: YES DEFINITY: BUBBLE STUDY: DIAGNOSIS: CHEST PAIN, DIZZINESS CARDIAC HISTORY: CATHERIZATION: YES SURGERY: NO PROSTHETIC VALVE: NO PACEMAKER: NO MEASUREMENTS (cm) DIASTOLIC (NORMALS) SYSTOLIC (NORMALS) IVSd 1.0 (0.6-1.2) LA Diam 3.3 (1.9-4.0) LVEF 56% LVIDd 4.1 (3.5-5.7) LVIDs 2.9 (2.0-3.5) %FS 29% LVPWd 1.2 (0.6-1.2) Ao Diam 2.4 (2.0-3.7) 2 DIMENSIONAL ASSESSMENT: RIGHT ATRIUM: NORMAL LEFT ATRIUM: NORMAL RIGHT VENTRICLE: NORMAL LEFT VENTRICLE: NORMAL TRICUSPID VALVE: MILD TRICUSPID REGURGITATION MITRAL VALVE: NORMAL PULMONIC VALVE: NORMAL AORTIC VALVE: NORMAL PERICARDIAL EFFUSION: SMALL AORTIC ROOT: NORMAL LEFT VENTRICULAR WALL MOTION: NORMAL DOPPLER/COLOR FLOW: MILD TRICUSPID REGURGITATION COMMENTS: 1. NORMAL LEFT VENTRICULAR EJECTION FRACTION 55-60% 2. NORMAL WALL MOTION 3. MILD TRICUSPID REGURGITATION 4. SMALL PERICARDIAL EFFUSION 5. GRADE I DIASTOLIC DYSFUNCTION 6. MILD CONCENTRIC LEFT VENTRICULAR HYPERTROPHY TECHNOLOGIST: LOUIE ELIZALDE
== END 2023-05-24 13:26 | disposition home or self-care (01) ==
LOC: ER 08:11 → ERHOLD 13:31 → 2ND 17:51
PROVIDERS: ADMIT Hospitalist; ATTEND Hospitalist
DX: R07.9 Chest pain, unspecified (principal); I25.10 Atherosclerotic heart disease of native coronary artery without angina pectoris; I10 Essential (primary) hypertension; Z87.891 Personal history of nicotine dependence; Z88.6 Allergy status to analgesic agent; E78.00 Pure hypercholesterolemia, unspecified
CPT/HCPCS: 93005; 93306; 85025 ×2; 81001; 80048 ×2; 36415; 83735; 85610; 80061; 80076; 85730; 84484 ×4; 70450; 71045; 70551; 96374; 99285; J1650 ×3; J2405 ×2; G0378

== ENCOUNTER 2023-06-26 08:35 | Day surgery (SDC) | payer OTHER ==
--- NOTE | 2023-06-25 16:34 | RAD REPORT ---
EXAM DESCRIPTION: RAD - Chest Pa And Lat (2 Views) - 06/25/2023 4:25 pm CLINICAL HISTORY: PRE OPERATIVE, hypertension COMPARISON: Chest Single View dated 05/22/2023; Chest Single View dated 11/15/2020; Chest Pa And Lat (2 Views) dated 07/29/2016; CHEST SINGLE VIEW dated 04/07/2013 FINDINGS: Lines: None. Lungs: No evidence of edema or pneumonia. Pleural: No significant pleural effusions or pneumothorax. Cardiac: The heart size is within normal limits. Mediastinum: Within normal limits. Bones: No acute fractures. Other: None IMPRESSION: No acute cardiopulmonary disease.
[2023-06-25 16:55] LABS: Absolute Lymphocytes (CBC) 1.6 K/uL (0.7-4.9); Hematocrit 40.3 % (36.0-45.0); MCV 87.6 fL (80-100)
[2023-06-25 17:44] LABS: Protime INR 0.91
[2023-06-25 18:05] LABS: Potassium 3.7 mEq/L (3.5-5.1)
[2023-06-26] MEDS ORDERED: NA CHLORIDE 0.9% 500 ML ONE (08:52)
[2023-06-26] MEDS ORDERED: HEPA 1000U/500MLS 2,000 UNIT/1,000 ML BAG IV ONE (09:00)
[2023-06-26] MEDS ORDERED: LIDOCAINE 1% 20 ML MDV ONE (09:00)
[2023-06-26] MEDS ORDERED: CLOPIDOGREL 75 MG TABLET ONE (09:01)
[2023-06-26] MEDS ORDERED: MIDAZOLAM HCL 2 MG/2 ML INJ ONE (09:01)
[2023-06-26] MEDS ORDERED: VERAPAMIL HCL 10 MG/4 ML VIAL IV ONE (09:01)
[2023-06-26] MEDS ORDERED: HEPARIN 5000 UNIT/ML 1 ML VIAL ONE (09:01)
[2023-06-26] MEDS ORDERED: HEPARIN 10,000 UNIT/10 ML VIAL IV ONE (09:02)
[2023-06-26] MEDS ORDERED: ASPIRIN 325 MG TAB ONE (09:02)
[2023-06-26] MEDS ORDERED: TICAGRELOR 90 MG TABLET PO ONE (09:02)
[2023-06-26] MEDS ORDERED: ATROPINE SULF 1 MG/10 ML SYR IV ONE (09:02)
[2023-06-26] MEDS ORDERED: FENTANYL CITR 100 MCG/2 ML ONE (09:03)
[2023-06-26] MEDS ORDERED: ONDANSETRON 4 MG/2 ML VIAL ONE ×2 (09:18→11:00)
[2023-06-26] MEDS ORDERED: PROMETHAZINE INJ 25 MG/ML AMP ONE (11:24)
[2023-06-26] MEDS ORDERED: SCOPOLAMINE HYDROBROMIDE PATCH TD ONE (11:34)
[2023-06-26 12:15] VITALS: TEMP 96.9
--- NOTE | 2023-06-26 13:25 | EKG ---
Test Date: 2023-06-25 Test Time: 16:07:03 [employer] Driver: CECILIO MEASUREMENT RESULTS: Intervals: Rate: 72 MD: 154 QRSD: 154 QT: 442 QTc: 483 [place]: P: 53 MD: 154 QRS: -12 T: 102 INTERPRETIVE STATEMENTS: Normal sinus rhythm Left bundle branch block Abnormal ECG Compared to ECG 05/22/2023 08:56:05 No significant changes Electronically Signed On 06-26-23 13:24:21 CDT by Ricky Mcgarry
[2023-06-26 15:35] VITALS: BP 142/60; O2SAT 99
--- NOTE | 2023-06-26 21:15 | OP ---
Date of Procedure: 06/26/2023 Surgeon: TOPHER QUEEN Procedures Performed: 1.Selective coronary angiogram. 2.Left heart catheterization. 3.Percutaneous coronary intervention of severe mid left anterior descending stenosis, used 2.75 x 8 mm Synergy drug-eluting stent. 4.Percutaneous coronary intervention of severe mid to distal left anterior descending stenosis, used 2.5 x 8 mm Synergy drug-eluting stent. Indication: Unstable angina. Access: Right radial artery 6-[place] closed with TR band. Complications: None. Bleeding: Less than 20 mL. Total Sedation Time: 1 hour, used fentanyl and Versed. Description Of Procedure: After risks, benefits, and alternatives were explained, patient agreed to proceed and signed informed consent. Patient was brought into the cardiac catheterization laboratory , prepped and draped in sterile fashion. Then, accessed right radial artery using pediatric micropun cture kit, placed 6-[place] slender sheath. Took 5-[place]ic [place] 4.0 catheter into the aortic root, en gaged left main and the right coronary artery, took standard views. The catheter was pushed over the wire into the LV, measured LVEDP. Pullback did not put any gradient. Then, gave systemic heparin t o assure ACT level above 250 throughout the procedure. Loaded with 600 mg of Plavix and patient alre nena had aspirin. Took a 6-[place] EBU 3.5 guide into the aortic root, engaged left main and then a ru n-through wire was advanced into the left main and placed into the distal LAD and then did direct ute nting of the distal lesion using 2.5 x 8 mm and then I used a 2.5 x 8 mm NC balloon to postdilate and then I used the same balloon to re-dilate the lesion in the mid LAD and then I placed 2.[address] ug-eluting stent in the mid LAD. Excellent angiographic results with 0% residual stenosis. I then r emoved the wire. Final angiogram was satisfactory and removed the guide and the sheath. A TR band w as placed with good hemostasis. Findings: 1.Left main: Large, normal. 2.LAD: Proximal diffuse 30% stenosis, mid 70% stenosis, status post successful PCI as above and the n the mid to distal, there is 80% stenosis, focal, used a 2.5 x 8 mm Synergy drug-eluting stent. 3.Ramus intermedius with proximal 50% stenosis. 4.Left circumflex: Very large. No significant disease. 5.RCA moderate size and dominant, mid diffuse 50%. 6.Normal LVEDP of 5 mmHg. Conclusion: 1.Severe LAD stenosis in [address], status post successful PCI for both. 2.Moderate coronary artery disease elsewhere and normal LVEDP. Plan: Aspirin, Plavix, and statin. Follow up with me in the office in 1 month. SR/MODL Voice ID: [id number] Report ID: [id number]
--- NOTE | 2023-06-29 18:54 | EKG ---
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
== END 2023-06-26 14:42 | disposition home or self-care (01) ==
LOC: CCL 08:35
PROVIDERS: ATTEND Internal Medicine
DX: I25.110 Atherosclerotic heart disease of native coronary artery with unstable angina pectoris (principal); I44.7 Left bundle-branch block, unspecified; I10 Essential (primary) hypertension; E78.5 Hyperlipidemia, unspecified; Z79.82 Long term (current) use of aspirin; Z79.899 Other long term (current) drug therapy; Z88.5 Allergy status to narcotic agent; Z82.49 Family history of ischemic heart disease and other diseases of the circulatory system
CPT/HCPCS: 93005 ×2; 85025; 80048; 36415; 85610; 85730; 71046; 93458; 76937; C1893; Q9967; C1769; C1725; C9600; J2550; J1644; J2001; J3010; J2405 ×2; J7040; J0461; J2250

== ENCOUNTER 2025-09-01 20:32 | Emergency (ER) | payer OTHER ==
--- OUTSIDE RECORDS SUMMARY | 2025-09-01 20:41 | XMS REPORT | Continuity of Care Document ---
Author Name Unknown Address [address] [place] [address] [facility] Address [address] [place] [address] Care Team Providers Care Line Tender Flakeboard Name Role Phone UNKNOWN, REFFERING Primary Care Physician GENNY Guaman Attending Clinician Unavailable Diamante Puri MD Attending Clinician + [phone] Felicitas Whitt Attending Clinician +[phone] Unknown, Attending Attending Clinician Unavailab FELICITAS Lawson Attending Clinician Unavailable Doctor Unassigned, Olive Attending Clinician U MINNIE Howell Attending Clinician Unavailable Minnie Martinez MD Attending Clinician [phone] Jimbo Hansen MD Attending Clinician [phone], [facility] Attending Clinician Unavailable CHAU_Debby_Jacob Attending Clinician UnavailSadi Alexis Attending Clinician [phone] RADU UREÑA Attending Clinician UnavailROBERTH Francisco Attending Clinician Unavail able Nurse, [facility] Immunization Attending Clinician Unavailable Roberth Schwarz DO Attending Clinician [phone] GENET DAVID Attending Clinician Unavailable Marcia Hill Attending Clinician DIAMANTE PURI Attending Clinician Kym Hector MD, Esperanza Attending Clinician [phone] ESPERANZA HECTOR Attending Clinician Unavailable Pob, [facility] Main Attending Clinician UnavailPaul Panda Attending Clinician [phone] PAUL BRITO Attending Clinician UnavailLilliam Clark MD Attending Clinician [phone] LILLIAM GARCIA Attending Clinician UnavailLIDIA Fontenot Attending Clinician Unavailable Dean BURGOS, Leonel Attending Clinician [phone] LEONEL ORTEGA Attending Clinician Unavailable Gramm Sayra FRANCE Attending Clinician [phone] SAYRA MOONEY Attending Clinician Unavailable PARESH BOLES M.D. Attending Clinician Unavail able Glendy Valerio Attending Clinician [phone] TISHA DAVIS Attending Clinician Unavailable MINNIE MARTINEZ Admitting Clinician Unavailable JIMBO HANSEN Admitting Clinician Unavailable CHAU_Jenni Admitting Clinician UnavailTISHA Zee Admitting Clinician Unavailable Payers Payer Name Policy Type Policy Number Effective Date Expirati on Date Source MEDICARE PART A \T\ [id number] 2016 00:00:00 [facility] [employer] PLAN [id number] 2024 00:00:00 [place]: [employer] [id number] 2016 00:00:00 [employer] [facility] PLAN [id number] 2016 00:00:00 M[employer]IPLAN GENERIC [id number] 2016 00:00:00 Problems Condition Name Condition Details Condition Category Status Onset Date Resolution Date Last Treatment Date Treating Clinician Comments Source Pain of right knee joint Pain of Right Knee Joint Problem Active 6 00:00: 00 [facility] Abdominal pain Abdominal pain Disease Active 03-24 00:00: 00 [facility] Central chest pain Central chest pain Disease Active 03-24 00:00: 00 [facility] Essential hypertensi on Essential hypertensi on Disease Active 03-24 00:00: 00 [facility] Hyperlipid emia Hyperlipid emia Disease Active 03-24 00:00: 00 [facility] Polyp of gallbladde r Polyp of gallbladde r Disease Active 03-24 00:00: 00 [facility] Right upper quadrant pain Right upper quadrant pain Disease Active 03-24 00:00: 00 [facility] 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 [facility] Problem Active 02-27 00:00: 00 2020-05-03 23:48:53 Fany Schmitt Gastroesop hageal reflux disease (disorder) Gastroesop hageal reflux disease (disorder) Active 02/27/2014 Problem 05/03/2020 Data migrated from [employer] on 04/28/15. [facility] Problem Active 02-27 00:00: 00 2020-05-03 23:48:53 Fany Schmitt Fatigue (finding) Fatigue (finding) Active 02/23/2013 Problem 05/03/2020 Data migrated from [employer] on 04/28/15. [facility] Problem Active 02-23 00:00: 00 2020-05-03 23:48:53 Fany Schmitt Incontinen ce (finding) Incontinen ce (finding) Active 02/23/2013 Problem 05/03/2020 Data migrated from [employer] on 04/28/15. [facility] Problem Active 02-23 00:00: 00 2020-05-03 23:48:53 [facility] Menopausal syndrome (disorder) Menopausal syndrome (disorder) Active 02/23/2013 Problem 05/03/2020 Data migrated from [employer] on 04/28/15. [facility] Problem Active 02-23 00:00: 00 2020-05-03 23:48:53 [facility] Dysplasia of vagina (disorder) Dysplasia of vagina (disorder) Active 02/23/2013 Problem 05/03/2020 Data migrated from [employer] on 04/28/15. [facility] Problem Active 02-23 00:00: 00 2020-05-03 23:48:53 [facility] Migraine (disorder) Migraine (disorder) Active 08/25/2012 Problem 05/03/2020 Data migrated from [employer] on 04/28/15. [facility] Problem Active 08-25 00:00: 00 2020-05-03 23:48:53 [facility] Neck pain (finding) Neck pain (finding) Active 08/25/2012 Problem 05/03/2020 Data migrated from [employer] on 04/28/15. [facility] Problem Active 08-25 00:00: 00 2020-05-03 23:48:53 [facility] Numbness of upper limb (finding) Numbness of upper limb (finding) Active 08/25/2012 Problem 05/03/2020 Data migrated from [employer] on 04/28/15. [facility] Problem Active 08-25 00:00: 00 2020-05-03 23:48:53 [facility] Vaginitis (disorder) Vaginitis (disorder) Active Problem 02/12/2019 [facility] Problem Active 2019-02-12 21:05:30 [facility] Obesity (disorder) Obesity (disorder) Active Problem 05/03/2020 [facility] Problem Active 2020-05-03 23:48:53 [facility] Atrophic vaginitis (disorder) Atrophic vaginitis (disorder) Active Problem 05/03/2020 [facility] Problem Active 2020-05-03 23:48:53 Fany Schmitt Encounter for screening mammogram for breast cancer Encounter for screening mammogram for breast cancer Problem Active [facility] Menopause Menopause Problem Active [facility] 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 [facility] Incontinen ce of urine in female Incontinen ce of urine in female Problem Active [facility] Depression Depression Problem Active [facility] Fatigue Fatigue Problem Active [facility] History of Past Illness Condition Name Condition Details Condition Category Status Onset Date Resolution Date Last Treatment Date Treating Clinician Comments Source Postmenopa usal atrophic vaginitis Postmenopa usal atrophic vaginitis 03/07/2019 03/09/2019 [facility] Problem 03-07 20:37: 00 2019-03-09 21:23:05 2019-03-09 21:23:05 Fany Schmitt Dysplasia of vagina, unspecifie d Dysplasia of vagina, unspecifie d 03/07/2019 03/09/2019 [facility] Problem 03-07 20:37: 00 2019-03-09 21:23:05 2019-03-09 21:23:05 Fany Schmitt Menopausal and female climacteri c states Menopausal and female climacteri c states 03/07/2019 03/09/2019 [facility] Problem 08 20:37: 00 2019-03-09 21:23:05 2019-03-09 21:23:05 Fany Schmitt Unspecifie d menopausal and perimenopa usal disorder Unspecifie d menopausal and perimenopa usal disorder 11/02/2017 11/05/2017 [facility] Problem 2016-11 16:54: 00 2017-11-05 01:00:48 2017-11-05 01:00:48 Fany Schmitt Allergies, Adverse Reactions, Alerts Allergy Name Allergy Type Status Severity Reaction(s) Onset Date Inactive Date Treating Clinician Comments Source Demerol Allergy to substanc e Active 03-25 00:00: 00 [facility] CODEINE DRUG INGREDI Active Unknown-Cmnt 06-03 00:00: 00 [facility] MEPERIDI NE HCL DRUG INGREDI Active Unknown-Cmnt 06-03 00:00: 00 [facility] Codeine Propensi ty to adverse reaction s Active Unknown - See comments 06-03 00:00: 00 [facility] Meperidi ne Hcl Propensi ty to adverse reaction s Active Unknown - See comments 06-03 00:00: 00 [facility] morphine Allergy to drug (finding ) Active [facility] codeine< sup>1</s up> codeine< sup>1</s up> Active Fany Sch[facility] Social History Social Habit Start Date Stop Date Quantity Comments [facility] intake 2024-04-09 00:00:00 2024-04-09 00:00:00 0 /d [facility] Tobacco use and exposure 2024-04-09 00:00:00 2024-04-09 00:00:00 Smokeless tobacco non-user [facility] Exposure to SARS-CoV-2 (event) 2022-11-16 00:00:00 2022-11-26 11:09:00 Not sure [facility] History of Social function 2022-04-16 00:00:00 2022-04-16 00:00:00 [facility] Alcohol intake 2022-01-21 00:00:00 2022-01-21 00:00:00 0 /d [facility] Social History 2019-03-07 19:58:03 2019-03-07 19:58:03 Amira Schmitt Sex assigned at 1950 00:00:00 1950 00:00:00 [facility] Smoking Status Start Date Stop Date Source Never smoked tobacco [facility] Medications Ordered Medication Name Filled Medication Name Start Date Stop Date Current Medication? Ordering Clinician Indication Dosage Frequency Signature (SIG) Comments Components Source isosorbide mononitrate 30 mg 24 hr tablet 04-09 15:26: 57 Yes 30mg Take 1 tablet by mouth. [facility] metoprolol tartrate 25 mg tablet 04-09 15:25: 33 Yes 25mg Take 1 tablet by mouth in the morning and 1 tablet in the evening. [facility] cefdinir 300 mg capsule 2024-0 5-11 00:00: 00 04-17 04:59 :00 No [id number] 300mg Take 1 capsule by mouth every 12 (twelve) hours for 7 days. [facility] clopidogreL 75 mg tablet 5-04 00:00: 00 Yes 75mg Take 1 tablet by mouth in the morning. [facility] carvediloL 25 mg tablet 3- 00:00: 00 Yes 25mg Take 1 tablet by mouth in the morning and 1 tablet in the evening. Take with meals. [facility] sulfamethox azole-trime thoprim 800-160 mg per tablet 1- 00:00: 00 12-09 05:59 :00 No [id number] 1{tbl} Take 1 tablet by mouth in the morning and 1 tablet in the evening. Do all this for 7 days. [facility] amoxicillin -clavulanat e (AUGMENTIN) 875-125 mg per tablet 2021-11 0 00:00: 00 09-13 04:59 :00 No [id number] 1{tbl} Take 1 tablet by mouth in the morning and 1 tablet in the evening. Do all this for 7 days. [facility] estradioL (ESTRACE) 0.01 % (0.1 mg/gram) vaginal cream 02-24 00:00: 00 Yes [id number] Apply 1g vaginally at bedtime every night for 2 weeks and then apply 1g vaginally at bedtime 3 times per week (Thursday//) [facility] aspirin 81 mg tablet,leonardo yed release RX by other aspirin 81 mg tablet,leonardo yed release RX by other 03-25 00:00: 00 No aspirin 81 mg tablet,del ayed release RX by other [facility] atorvastati n 20 mg tablet atorvastati n 20 mg tablet 03-25 00:00: 00 No atorvastat in 20 mg tablet [facility] diclofenac sodium 75 mg tablet,leonardo yed release RX by other diclofenac sodium 75 mg tablet,leonardo yed release RX by other 03-25 00:00: 00 No diclofenac sodium 75 mg tablet,del ayed release RX by other MD [facility] esomeprazol e magnesium 20 mg capsule,del ayed release esomeprazol e magnesium 20 mg capsule,del ayed release 03-25 00:00: 00 No esomeprazo le magnesium 20 mg capsule,de layed release [facility] fluticasone 100 mcg-salmete rol 50 mcg/dose blistr powdr for inhalation RX by other fluticasone 100 mcg-salmete rol 50 mcg/dose blistr powdr for inhalation RX by other 03-25 00:00: 00 No fluticason e 100 mcg-salmet cassia 50 mcg/dose blistr powdr for inhalation RX by other MD [facility] aspirin 81 mg EC tablet 2018-11 15:15: 40 Yes 325mg Take 325 mg by mouth daily. [facility] esomeprazol e magnesium (NEXIUM 24HR) 22.3 mg CpDR 07-26 10:40: 00 Yes Take by mouth. [facility] metoprolol tartrate 25 mg tablet 07-26 10:40: 00 Yes 25mg Take 1 tablet by mouth in the morning and 1 tablet in the evening. [facility] isosorbide mononitrate 30 mg 24 hr tablet 07-26 10:40: 00 Yes 30mg Take 1 tablet by mouth. [facility] fluticasone (FLONASE ALLERGY RELIEF) 50 mcg/actuati on nasal spray 07-26 10:40: 00 Yes Use in each nostril daily. [facility] esomeprazol e magnesium (NEXIUM 24HR) 22.3 mg CpDR 07-26 10:40: 00 Yes Take by mouth. [facility] chlorphenir amine 4 mg oral tablet 2016-11 16:41: 00 Yes Fany Schmitt Esomeprazol e 2016-11 16:31: 00 Yes Daily Fany Schmitt Aspirin 81 TBEC Aspirin 81 TBEC Yes [facility] Atorvastati n Calcium 20 MG Oral Tablet Atorvastati n Calcium 20 MG Oral Tablet Yes M[facility] Lisinopril- hydroCHLORO thiazide 20-12.5 MG Oral Tablet Lisinopril- hydroCHLORO thiazide 20-12.5 MG Oral Tablet Yes [facility] meloxicam 15 mg tablet TAKE 1 TABLET BY MOUTH EVERY DAY meloxicam 15 mg tablet TAKE 1 TABLET BY MOUTH EVERY DAY No meloxicam 15 mg tablet TAKE 1 TABLET BY MOUTH EVERY DAY [facility] Immunizations Ordered Immunization Name Filled Immunization Name Date Status Comments Source Influenza High Dose 2024-06-03 00:00:00 Completed [facility] Zoster Vaccine Recombinant 2024-06-03 00:00:00 Completed [facility] Pneumococcal 13 Conjugate, PCV13 (Prevnar 13) 2024-06-03 00:00:00 Completed [facility] TDAP 2024-06-03 00:00:00 Completed [facility] Zoster(Zostavax)(Sh ingles) 2024-06-03 00:00:00 Completed [facility] Influenza Virus Vaccine 2024-06-03 00:00:00 Completed [facility] SARS-COV-2 COVID-19 MODERNA 12+ YRS VACCINE 2024-06-03 00:00:00 Completed [facility] Influenza Virus Vaccine,quad Im,preserve Free 65+ (FLUAD) 2024-06-03 00:00:00 Completed [facility] SARS-COV-2 COVID-19 MODERNA 0.25ML BOOSTER VACCINE 2024-06-03 00:00:00 Completed [facility] Pneumococcal Polysaccharide, PPSV23 (PNEUMOVAX) 2024-06-03 00:00:00 Completed [facility] Influenza High Dose Quad 2024-06-03 00:00:00 Completed [facility] RSV, Monoclonal Antibody, (nirsevimab-alip), 1 mL, - 24 Mo. 2024-06-03 00:00:00 Completed [facility] Influenza High Dose 2024-04-09 15:20:00 Completed [facility] Zoster Vaccine Recombinant 2024-04-09 15:20:00 Completed [facility] Pneumococcal 13 Conjugate, PCV13 (Prevnar 13) 2024-04-09 15:20:00 Completed [facility] TDAP 2024-04-09 15:20:00 Completed [facility] Zoster(Zostavax)(Sh ingles) 2024-04-09 15:20:00 Completed [facility] Influenza Virus Vaccine 2024-04-09 15:20:00 Completed [facility] SARS-COV-2 COVID-19 MODERNA 12+ YRS VACCINE 2024-04-09 15:20:00 Completed [facility] Influenza Virus Vaccine,quad Im,preserve Free 65+ (FLUAD) 2024-04-09 15:20:00 Completed [facility] SARS-COV-2 COVID-19 MODERNA 0.25ML BOOSTER VACCINE 2024-04-09 15:20:00 Completed [facility] Pneumococcal Polysaccharide, PPSV23 (PNEUMOVAX) 2024-04-09 15:20:00 Completed [facility] Influenza High Dose Quad 2024-04-09 15:20:00 Completed [facility] RSV, Monoclonal Antibody, (nirsevimab-alip), 1 mL, - 24 Mo. 2024-04-09 15:20:00 Completed [facility] Influenza High Dose 2022-10-06 00:00:00 Completed [facility] Influenza High Dose 2022-10-06 00:00:00 Completed [facility] Influenza High Dose 2022-10-06 00:00:00 Completed [facility] Influenza High Dose 2022-10-06 00:00:00 Completed [facility] Influenza High Dose 2022-10-06 00:00:00 Completed [facility] Influenza High Dose 2022-10-06 00:00:00 Completed [facility] Influenza High Dose 2022-10-06 00:00:00 Completed [facility] Influenza High Dose 2022-01-30 00:00:00 Completed [facility] Zoster Vaccine Recombinant 2022-01-30 00:00:00 Completed [facility] Pneumococcal 13 Conjugate, PCV13 (Prevnar 13) 2022-01-30 00:00:00 Completed [facility] TDAP 2022-01-30 00:00:00 Completed [facility] Zoster(Zostavax)(Sh ingles) 2022-01-30 00:00:00 Completed [facility] Influenza Virus Vaccine 2022-01-30 00:00:00 Completed [facility] SARS-COV-2 COVID-19 MODERNA 12+ YRS VACCINE 2022-01-30 00:00:00 Completed [facility] Influenza Virus Vaccine,quad Im,preserve Free 65+ (FLUAD) 2022-01-30 00:00:00 Completed [facility] SARS-COV-2 COVID-19 MODERNA 0.25ML BOOSTER VACCINE 2022-01-30 00:00:00 Completed [facility] Pneumococcal Polysaccharide, PPSV23 (PNEUMOVAX) 2022-01-30 00:00:00 Completed [facility] Influenza High Dose Quad 2022-01-30 00:00:00 Completed [facility] SARS-COV-2 COVID-19 MODERNA 0.25ML BOOSTER VACCINE 2021-12-09 00:00:00 Completed [facility] SARS-COV-2 COVID-19 MODERNA 0.25ML BOOSTER VACCINE 2021-12-09 00:00:00 Completed [facility] SARS-COV-2 COVID-19 MODERNA 0.25ML BOOSTER VACCINE 2021-12-09 00:00:00 Completed [facility] SARS-COV-2 COVID-19 MODERNA 0.25ML BOOSTER VACCINE 2021-12-09 00:00:00 Completed [facility] SARS-COV-2 COVID-19 MODERNA 0.25ML BOOSTER VACCINE 2021-12-09 00:00:00 Completed [facility] SARS-COV-2 COVID-19 MODERNA 0.25ML BOOSTER VACCINE 2021-12-09 00:00:00 Completed [facility] SARS-COV-2 COVID-19 MODERNA 0.25ML BOOSTER VACCINE 2021-12-09 00:00:00 Completed [facility] SARS-COV-2 COVID-19 MODERNA 0.25ML BOOSTER VACCINE 2021-12-09 00:00:00 Completed [facility] SARS-COV-2 COVID-19 MODERNA 0.25ML BOOSTER VACCINE 2021-12-09 00:00:00 Completed [facility] SARS-COV-2 COVID-19 MODERNA 0.25ML BOOSTER VACCINE 2021-12-09 00:00:00 Completed [facility] SARS-COV-2 COVID-19 MODERNA 0.25ML BOOSTER VACCINE 2021-12-09 00:00:00 Completed [facility] SARS-COV-2 COVID-19 MODERNA 0.25ML BOOSTER VACCINE 2021-12-09 00:00:00 Completed [facility] Influenza Virus Vaccine,quad Im,preserve Free 65+ 2021-09-13 00:00:00 Completed [facility] Influenza Virus Vaccine,quad Im,preserve Free 65+ 2021-09-13 00:00:00 Completed [facility] Influenza Virus Vaccine,quad Im,preserve Free 65+ 2021-09-13 00:00:00 Completed [facility] Influenza Virus Vaccine,quad Im,preserve Free 65+ 2021-09-13 00:00:00 Completed [facility] Influenza Virus Vaccine,quad Im,preserve Free 65+ 2021-09-13 00:00:00 Completed [facility] Influenza Virus Vaccine,quad Im,preserve Free 65+ 2021-09-13 00:00:00 Completed [facility] Influenza Virus Vaccine,quad Im,preserve Free 65+ 2021-09-13 00:00:00 Completed [facility] Influenza Virus Vaccine,quad Im,preserve Free 65+ 2021-09-13 00:00:00 Completed [facility] Influenza Virus Vaccine,quad Im,preserve Free 65+ 2021-09-13 00:00:00 Completed [facility] Influenza Virus Vaccine,quad Im,preserve Free 65+ 2021-09-13 00:00:00 Completed [facility] Influenza Virus Vaccine,quad Im,preserve Free 65+ 2021-09-13 00:00:00 Completed [facility] Influenza Virus Vaccine,quad Im,preserve Free 65+ 2021-09-13 00:00:00 Completed [facility] SARS-COV-2 COVID-19 MODERNA VACCINE 2021-01-03 00:00:00 Completed [facility] SARS-COV-2 COVID-19 MODERNA VACCINE 2021-01-03 00:00:00 Completed [facility] SARS-COV-2 COVID-19 MODERNA VACCINE 2021-01-03 00:00:00 Completed [facility] SARS-COV-2 COVID-19 MODERNA VACCINE 2021-01-03 00:00:00 Completed [facility] SARS-COV-2 COVID-19 MODERNA 12+ YRS VACCINE 2021-01-03 00:00:00 Completed [facility] SARS-COV-2 COVID-19 MODERNA 12+ YRS VACCINE 2021-01-03 00:00:00 Completed [facility] SARS-COV-2 COVID-19 MODERNA 12+ YRS VACCINE 2021-01-03 00:00:00 Completed [facility] SARS-COV-2 COVID-19 MODERNA 12+ YRS VACCINE 2021-01-03 00:00:00 Completed [facility] SARS-COV-2 COVID-19 MODERNA 12+ YRS VACCINE 2021-01-03 00:00:00 Completed [facility] SARS-COV-2 COVID-19 MODERNA 12+ YRS VACCINE 2021-01-03 00:00:00 Completed [facility] SARS-COV-2 COVID-19 MODERNA 12+ YRS VACCINE 2021-01-03 00:00:00 Completed [facility] SARS-COV-2 COVID-19 MODERNA 12+ YRS VACCINE 2021-01-03 00:00:00 Completed [facility] SARS-COV-2 COVID-19 MODERNA VACCINE 2020-12-06 00:00:00 Completed [facility] SARS-COV-2 COVID-19 MODERNA VACCINE 2020-12-06 00:00:00 Completed [facility] SARS-COV-2 COVID-19 MODERNA VACCINE 2020-12-06 00:00:00 Completed [facility] SARS-COV-2 COVID-19 MODERNA VACCINE 2020-12-06 00:00:00 Completed [facility] SARS-COV-2 COVID-19 MODERNA 12+ YRS VACCINE 2020-12-06 00:00:00 Completed [facility] SARS-COV-2 COVID-19 MODERNA 12+ YRS VACCINE 2020-12-06 00:00:00 Completed [facility] SARS-COV-2 COVID-19 MODERNA 12+ YRS VACCINE 2020-12-06 00:00:00 Completed [facility] SARS-COV-2 COVID-19 MODERNA 12+ YRS VACCINE 2020-12-06 00:00:00 Completed [facility] SARS-COV-2 COVID-19 MODERNA 12+ YRS VACCINE 2020-12-06 00:00:00 Completed [facility] SARS-COV-2 COVID-19 MODERNA 12+ YRS VACCINE 2020-12-06 00:00:00 Completed [facility] SARS-COV-2 COVID-19 MODERNA 12+ YRS VACCINE 2020-12-06 00:00:00 Completed [facility] SARS-COV-2 COVID-19 MODERNA 12+ YRS VACCINE 2020-12-06 00:00:00 Completed [facility] Influenza Virus Vaccine 2020-09-27 00:00:00 Completed [facility] Pneumococcal Polysaccharide, PPSV23 (PNEUMOVAX) 2020-09-27 00:00:00 Completed [facility] Influenza High Dose Quad 2020-09-27 00:00:00 Completed [facility] Influenza Virus Vaccine 2020-09-27 00:00:00 Completed [facility] Pneumococcal Polysaccharide, PPSV23 (PNEUMOVAX) 2020-09-27 00:00:00 Completed [facility] Influenza High Dose Quad 2020-09-27 00:00:00 Completed [facility] Influenza Virus Vaccine 2020-09-27 00:00:00 Completed [facility] Pneumococcal Polysaccharide, PPSV23 (PNEUMOVAX) 2020-09-27 00:00:00 Completed [facility] Influenza High Dose Quad 2020-09-27 00:00:00 Completed [facility] Influenza Virus Vaccine 2020-09-27 00:00:00 Completed [facility] Pneumococcal Polysaccharide, PPSV23 (PNEUMOVAX) 2020-09-27 00:00:00 Completed [facility] Influenza High Dose Quad 2020-09-27 00:00:00 Completed [facility] Influenza Virus Vaccine 2020-09-27 00:00:00 Completed [facility] Pneumococcal Polysaccharide, PPSV23 (PNEUMOVAX) 2020-09-27 00:00:00 Completed [facility] Influenza High Dose Quad 2020-09-27 00:00:00 Completed [facility] Influenza Virus Vaccine 2020-09-27 00:00:00 Completed [facility] Pneumococcal Polysaccharide, PPSV23 (PNEUMOVAX) 2020-09-27 00:00:00 Completed [facility] Influenza High Dose Quad 2020-09-27 00:00:00 Completed [facility] Influenza Virus Vaccine 2020-09-27 00:00:00 Completed [facility] Pneumococcal Polysaccharide, PPSV23 (PNEUMOVAX) 2020-09-27 00:00:00 Completed [facility] Influenza High Dose Quad 2020-09-27 00:00:00 Completed [facility] Influenza Virus Vaccine 2020-09-27 00:00:00 Completed [facility] Pneumococcal Polysaccharide, PPSV23 (PNEUMOVAX) 2020-09-27 00:00:00 Completed [facility] Influenza High Dose Quad 2020-09-27 00:00:00 Completed [facility] Influenza Virus Vaccine 2020-09-27 00:00:00 Completed [facility] Pneumococcal Polysaccharide, PPSV23 (PNEUMOVAX) 2020-09-27 00:00:00 Completed [facility] Influenza High Dose Quad 2020-09-27 00:00:00 Completed [facility] Influenza Virus Vaccine 2020-09-27 00:00:00 Completed [facility] Pneumococcal Polysaccharide, PPSV23 (PNEUMOVAX) 2020-09-27 00:00:00 Completed [facility] Influenza High Dose Quad 2020-09-27 00:00:00 Completed [facility] Influenza Virus Vaccine 2020-09-27 00:00:00 Completed [facility] Pneumococcal Polysaccharide, PPSV23 (PNEUMOVAX) 2020-09-27 00:00:00 Completed [facility] Influenza High Dose Quad 2020-09-27 00:00:00 Completed [facility] Influenza Virus Vaccine 2020-09-27 00:00:00 Completed [facility] Pneumococcal Polysaccharide, PPSV23 (PNEUMOVAX) 2020-09-27 00:00:00 Completed [facility] Influenza High Dose Quad 2020-09-27 00:00:00 Completed [facility] Influenza High Dose 2019-12-23 00:00:00 Completed [facility] Influenza High Dose 2019-12-23 00:00:00 Completed [facility] Influenza High Dose 2019-12-23 00:00:00 Completed [facility] Influenza High Dose 2019-12-23 00:00:00 Completed [facility] Influenza High Dose 2019-12-23 00:00:00 Completed [facility] Influenza High Dose 2019-12-23 00:00:00 Completed [facility] Influenza High Dose 2019-12-23 00:00:00 Completed [facility] Influenza High Dose 2019-12-23 00:00:00 Completed [facility] Influenza High Dose 2019-12-23 00:00:00 Completed [facility] Influenza High Dose 2019-12-23 00:00:00 Completed [facility] Influenza High Dose 2019-12-23 00:00:00 Completed [facility] Influenza High Dose 2019-12-23 00:00:00 Completed [facility] Influenza High Dose 2018-07-31 00:00:00 Completed [facility] Zoster Vaccine Recombinant 2018-07-31 00:00:00 Completed [facility] Influenza High Dose 2018-07-31 00:00:00 Completed [facility] Zoster Vaccine Recombinant 2018-07-31 00:00:00 Completed [facility] Influenza High Dose 2018-07-31 00:00:00 Completed [facility] Zoster Vaccine Recombinant 2018-07-31 00:00:00 Completed [facility] Influenza High Dose 2018-07-31 00:00:00 Completed [facility] Zoster Vaccine Recombinant 2018-07-31 00:00:00 Completed [facility] Influenza High Dose 2018-07-31 00:00:00 Completed [facility] Zoster Vaccine Recombinant 2018-07-31 00:00:00 Completed [facility] Influenza High Dose 2018-07-31 00:00:00 Completed [facility] Zoster Vaccine Recombinant 2018-07-31 00:00:00 Completed [facility] Influenza High Dose 2018-07-31 00:00:00 Completed [facility] Zoster Vaccine Recombinant 2018-07-31 00:00:00 Completed [facility] Influenza High Dose 2018-07-31 00:00:00 Completed [facility] Zoster Vaccine Recombinant 2018-07-31 00:00:00 Completed [facility] Influenza High Dose 2018-07-31 00:00:00 Completed [facility] Zoster Vaccine Recombinant 2018-07-31 00:00:00 Completed [facility] Influenza High Dose 2018-07-31 00:00:00 Completed [facility] Zoster Vaccine Recombinant 2018-07-31 00:00:00 Completed [facility] Influenza High Dose 2018-07-31 00:00:00 Completed [facility] Zoster Vaccine Recombinant 2018-07-31 00:00:00 Completed [facility] Influenza High Dose 2018-07-31 00:00:00 Completed [facility] Zoster Vaccine Recombinant 2018-07-31 00:00:00 Completed [facility] TDAP 2018-03-01 00:00:00 Completed [facility] Zoster(Zostavax)( nick) 2018-03-01 00:00:00 Completed [facility] TDAP 2018-03-01 00:00:00 Completed [facility]-01 00:00:00 Completed [facility] TDAP 2018-03-01 00:00:00 Completed [facility] 2018-03-01 00:00:00 Completed [facility] TDAP 2018-03-01 00:00:00 Completed [facility]oster[facility]Zost[facility] 2018-03-01 00:00:00 Completed [facility] TDAP 2018-03-01 00:00:00 Completed [facility] Zoster(Zostavax)( ingdara) 2018-03-01 00:00:00 Completed [facility] TDAP 2018-03-01 00:00:00 Completed [facility]oster[facility] 2018-03-01 00:00:00 Completed [facility] TDAP 2018-03-01 00:00:00 Completed [facility] Zoster[facility]Zost[facility]ax[facility] 2018-03-01 00:00:00 Completed [facility] TDAP 2018-03-01 00:00:00 Completed [facility] Zoster(Zostavax)( nick) 2018-03-01 00:00:00 Completed [facility] TDAP 2018-03-01 00:00:00 Completed [facility]oster[facility]Zost[facility] 2018-03-01 00:00:00 Completed [facility] TDAP 2018-03-01 00:00:00 Completed [facility] Zoster(Zostavax)([facility]) 2018-03-01 00:00:00 Completed [facility] TDAP 2018-03-01 00:00:00 Completed [facility] Zoster[facility]Zost[facility]ax[facility] 2018-03-01 00:00:00 Completed [facility] TDAP 2018-03-01 00:00:00 Completed [facility]oster[facility]Zostavax[facility] 2018-03-01 00:00:00 Completed [facility] Pneumococcal 13 Conjugate, PCV13 (Prevnar 13) 2017-10-12 00:00:00 Completed [facility] Pneumococcal 13 Conjugate, PCV13 (Prevnar 13) 2017-10-12 00:00:00 Completed [facility] Pneumococcal 13 Conjugate, PCV13 (Prevnar 13) 2017-10-12 00:00:00 Completed [facility] Pneumococcal 13 Conjugate, PCV13 (Prevnar 13) 2017-10-12 00:00:00 Completed [facility] Pneumococcal 13 Conjugate, PCV13 (Prevnar 13) 2017-10-12 00:00:00 Completed [facility] Pneumococcal 13 Conjugate, PCV13 (Prevnar 13) 2017-10-12 00:00:00 Completed [facility] Pneumococcal 13 Conjugate, PCV13 (Prevnar 13) 2017-10-12 00:00:00 Completed [facility] Pneumococcal 13 Conjugate, PCV13 (Prevnar 13) 2017-10-12 00:00:00 Completed [facility] Pneumococcal 13 Conjugate, PCV13 (Prevnar 13) 2017-10-12 00:00:00 Completed [facility] Pneumococcal 13 Conjugate, PCV13 (Prevnar 13) 2017-10-12 00:00:00 Completed [facility] Pneumococcal 13 Conjugate, PCV13 (Prevnar 13) 2017-10-12 00:00:00 Completed [facility] Pneumococcal 13 Conjugate, PCV13 (Prevnar 13) 2017-10-12 00:00:00 Completed [facility] Vital Signs Vital Name Observation Time Observation Value Comments Deepa fairbanks Systolic blood pressure 2024-04-09 20:20:00 133 mm[Hg] [facility] Diastolic blood pressure 2024-04-09 20:20:00 67 mm[Hg] [facility] Heart rate 2024-04-09 20:20:00 77 /min [facility] Body temperature 2024-04-09 20:20:00 37.39 Loan [facility] Respiratory rate 2024-04-09 20:20:00 17 /min [facility] Body weight 2024-04-09 20:20:00 101.152 kg [facility] BMI 2024-04-09 20:20:00 38.28 kg/m2 [facility] Oxygen saturation in Arterial blood by Pulse oximetry 2024-04-09 20:20:00 97 /min [facility] Body height 2022-05-09 17:56:00 162.6 cm [facility] Body weight 2022-05-09 17:56:00 95.255 kg [facility] BMI 2022-05-09 17:56:00 36.05 kg/m2 [facility] Height 2022-05-02 00:00:00 64 [in_i] [facility] BMI (Body Mass Index) 2022-05-02 00:00:00 35.4 kg/m2 [facility] Body Weight 2022-05-02 00:00:00 206 [lb_av] [facility] Systolic blood pressure 2020-05-01 15:01:00 125 mm[Hg] Location: LUE; Position: Sitting [facility] Diastolic blood pressure 2020-05-01 15:01:00 81 mm[Hg] Location: LUE; Position: Sitting [facility] Body height 2020-05-01 15:01:00 64 [in_us] [facility] Weight 2020-05-01 15:01:00 200 [lb_av] [facility] Body mass index (BMI) [Ratio] 2020-05-01 15:01:00 34.33 kg/m2 [facility] Body temperature 2020-05-01 15:01:00 98 [degF] Method: Temporal [facility] Heart Rate 2020-05-01 15:01:00 69 /min [facility] BMI Calculated 2019-03-07 19:57:00 [facility] Weight 2019-03-07 19:57:00 [facility] Height 2019-03-07 19:57:00 162.56 cm [facility] Systolic (mm Hg) 2019-03-07 19:57:00 [facility] Diastolic (mm Hg) 2019-03-07 19:57:00 [facility] Heart Rate 2019-03-07 19:57:00 [facility] Height 2017-11-02 16:21:00 162.56 cm [facility] BMI Calculated 2017-11-02 16:21:00 [facility] Weight 2017-11-02 16:21:00 [facility] Heart Rate 2017-11-02 16:21:00 [facility] Systolic (mm Hg) 2017-11-02 16:21:00 [facility] Diastolic (mm Hg) 2017-11-02 16:21:00 [facility] Procedures Procedure Date / Time Performed Performing Clinician Source POCT URINALYSIS 2024-04-09 20:28:00 [facility] 2023-06-03 05:01:00 Do ctor Unassigned, Olive [facility] BI SELF-REQUESTED SCREENING TOMOSYNTHESIS BILATERAL 2023-05-26 20:31:44 Minnie Martinez [facility] ASSIGNMENT OF BENEFITS 2023-05-26 19:46:27 Docto r Unassigned, Olive [facility] US RETROPERITONEAL COMPLETE 2022-05-21 18:27:03 Jimbo Hansen [facility] EXTERNAL PROVIDER RECORDS 2022-05-16 05:01:00 Do ctor Unassigned, Olive [facility] DISCLOSURE AND CONSENT, MEDICAL AND SURGICAL PROCEDURES 2022-05-09 05:01:00 Doctor Unassigned, Olive [facility] XR, knee, 3 view 2022-05-02 00:00:00 [facility] [Q] THINPREP TIS AND HPV mRNA E6/E7 2020-05-01 00:00:00 [facility] Mammogram 2019-03-07 05:00:00 [facility] Colonoscopy 2014-08-24 05:00:00 [facility] - Bilateral salpingo-oophorectomy [facility] Hyste[facility] Knee joint operation Fany [facility] [place] History [facility]nee [facility] Hand [facility] Plan of Care Planned Activity Planned Date Details Comments Source Instructions [facility] Encounters Start Date/Time End Date/Time Encounter Type Admission Type Attending Clinicians Care Facility Care Department Encounter ID Source 2025-02-06 10:40:00 2025-02-06 12:14:43 Outpatient R GENNY WALTON [facility] [id number] [facility] 2024-06-03 00:00:00 2024-06-03 10:48:32 Telephone LeonidesDiamante [facility]?[employer] 1.2.840.114 350.1.13.10 4.2.7.2.686 [id number] [facility] 2024-06-03 00:00:00 2024-06-03 10:18:52 Telephone Leonides Diamante [facility]?[employer] [facility] 1.2.840.114 350.1.13.10 4.2.7.2.686 [id number] [facility] 2024-04-09 15:20:00 2024-04-09 15:40:00 Urgent Care Felicitas Aguirre Unknown, Attending [facility]?[employer] 1.2.840.114 350.1.13.10 4.2.7.2.686 [id number] [facility] 2024-04-09 15:20:00 2024-04-09 15:38:25 Outpatient R FELICITAS AGUIRRE [facility] [id number] [facility] 2023-06-03 00:00:00 2023-06-03 00:00:00 Orders Only Doctor Unassigned, Olive [facility] 1.2840.114 350.1.13.10 4.2.7.2.686 [id number] [facility] 2023-05-26 14:47:00 2023-05-26 23:59:00 Outpatient R MOLLY MINNIE [facility] [id number] [facility] 2023-05-26 14:47:00 2023-05-26 23:59:00 Hospital Encounter Minnie Martinez [facility] 1.840.114 350.1.13.10 4.2.7.2.686 [id number] [facility] 2023-05-26 00:00:00 2023-05-26 00:00:00 Orders Only Doctor Unassigned, Olive [facility] 1.840.114 350.1.13.10 4.2.7.2.686 [id number] [facility] 2023-05-22 00:00:00 2023-05-22 00:00:00 Telephone Diamante Puri [facility] 1..840.114 350.1.13.10 4.2.7.2.686 [id number] [facility] 2023-04-17 13:30:00 2023-04-17 13:30:00 Outpatient R MINNIE MARTINEZ [facility] [id number] [facility] 2022-12-01 00:00:00 2022-12-01 00:00:00 Jimbo Dahl [facility] 1..840.114 350.1.13.10 4.2.7.2.686 [id number] [facility] 2022-11-26 11:00:00 2022-11-26 11:53:55 Warehouse Foreman Visit 2, Adc Lab iJmbo Hansen [facility] 1.2.840.114 350.1.13.10 4.2.7.2.686 [id number] [facility] 2022-11-26 11:00:00 2022-11-26 11:00:00 Outpatient JIMBO WRIGHT [facility] [id number] [facility] 2022-09-05 00:00:00 2022-09-05 00:00:00 [facility] 1.2840.114 350.1.13.10 4.2.7.2.686 [id number] [facility] 2022-09-02 11:00:00 2022-09-02 11:15:00 Warehouse Foreman Visit 2, [facility] 1.2840.114 350.1.13.10 4.2.7.2.686 [id number] [facility] 2022-09-02 11:00:00 2022-09-02 11:00:00 Outpatient JIMBO WRIGHT [facility] [id number] [facility] 2022-05-21 12:33:37 2022-05-21 23:59:00 Outpatient JIMBO WRIGHT [facility] [id number] [facility] 2022-05-21 12:33:37 2022-05-21 23:59:00 Hospital Encounter Jimbo Hansen [facility] 1.2840.114 350.1.13.10 4.2.7.2.686 [id number] [facility] 2022-05-16 00:00:00 2022-05-16 00:00:00 Orders Only Doctor Unassigned, Olive [facility] 1.2.840.114 350.1.13.10 4.2.7.2.686 [id number] [facility] 2022-05-09 11:00:00 2022-05-09 16:48:40 Outpatient R JIMBO HANSEN [facility] [id number] [facility] 2022-05-09 11:00:00 2022-05-09 16:48:40 [facility] 1.2.840.114 350.1.13.10 4.2.7.2.686 [id number] [facility] 2022-05-09 11:00:00 2022-05-09 11:00:00 [facility] [id number] [facility] 2022-05-09 11:00:00 2022-05-09 11:00:00 [facility] [id number] [facility] 2022-05-09 00:00:00 2022-05-09 00:00:00 Orders Only Doctor Unassigned, Olive [facility] 1..840.114 350.1.13.10 4.2.7.2.686 [id number] [facility] 2022-05-05 13:24:13 2022-05-05 23:59:00 Outpatient R OMLLY [facility] [id number] [facility] 2022-05-05 13:24:13 2022-05-05 23:59:00 Hospital Encounter JoshuaemiMelissaMinnie Khadar [facility] 1..840.114 350.1.13.10 4.2.7.2.686 [id number] [facility] 2022-05-05 13:24:13 2022-05-05 23:59:00 Outpatient R MOLLY [facility] [id number] [facility] 2022-05-05 00:00:00 2022-05-05 00:00:00 Orders Only Doctor Unassigned, Olive [facility] 1.2.840.114 350.1.13.10 4.2.7.2.686 [id number] [facility] 2022-05-02 00:00:00 2022-05-02 00:00:00 Sadi Guardado MD: [id number] [place] [address] , Ph. [phone] [facility] [place] [facility] [place] [facility] [id number] [facility] 2022-05-02 00:00:00 2022-05-02 00:00:00 Outpatient Sadi Guardado [facility] [id number] 2022-04-30 13:15:00 2022-04-30 13:30:00 Warehouse Foreman Visit 2, Adc Lab Jimbo Hansen [facility] 1.2.840.114 350.1.13.10 4.2.7.2.686 [id number] [facility] 2022-04-30 13:15:00 2022-04-30 13:15:00 Outpatient R JIMBO HANSEN [facility] [id number] [facility] 2022-04-16 10:30:00 2022-04-16 11:37:16 Outpatient R MINNIE MARTINEZ [facility] [id number] [facility] 2022-04-16 10:30:00 2022-04-16 11:37:16 Office Visit Minnie Martinez [facility] 1.2.840.114 350.1.13.10 4.2.7.2.686 [id number] [facility] 2022-04-16 10:30:00 2022-04-16 11:37:16 Outpatient R MINNIE MARTINEZ [facility] [id number] [facility] 2022-04-11 14:00:2022-04-11 14:00:00 Outpatient R JIMBO HANSEN [facility] [id number] [facility] 2022-04-11 14:00:00 2022-04-11 14:00:00 Outpatient R JIMBO HANSEN [facility] [id number] [facility] 2022-04-09 00:00:00 2022-04-09 00:00:00 Telephone Jimbo Hansen [facility] 1.2.840.114 350.1.13.10 4.2.7.2.686 [id number] [facility] 2022-04-08 00:00:00 2022-04-08 00:00:00 Telephone Jimbo Hansen [facility] BUILD[facility] 1.2.840.114 350.1.13.10 4.2.7.2.686 [id number] [facility] 2022-03-24 13:00:00 2022-03-24 13:36:50 Outpatient R JIMBO HANSEN [facility] [id number] [facility] 2022-03-24 13:00:00 2022-03-24 13:36:50 Office Visit Jimbo Hansen [facility] BUILD[facility] 1.2.840.114 350.1.13.10 4.2.7.2.686 [id number] [facility] 2022-03-24 13:00:00 2022-03-24 13:36:50 Outpatient R JIMBO HANSEN [facility] [id number] [facility] 2022-03-24 13:00:00 2022-03-24 13:00:00 Outpatient R JIMBO HANSEN [facility] [id number] [facility] 2022-02-24 15:00:00 2022-02-24 15:47:27 Office Visit Jimbo Hansen [facility] BUILD[facility] 1.2.840.114 350.1.13.10 4.2.7.2.686 [id number] [facility] 2022-02-24 15:00:00 2022-02-24 15:47:27 Outpatient Vicky HANSENJIMBO [facility] [id number] [facility] 2022-02-24 15:00:00 2022-02-24 15:00:00 Outpatient Vicky HANSENJIMBO [facility] [id number] [facility] 2022-02-24 00:00:00 2022-02-24 00:00:00 Orders Only Doctor Unassigned, Olive [facility] .840.114 350.1.13.10 4.2.7.2.686 [id number] [facility] 2022-01-30 00:00:00 2022-01-30 00:00:00 Patient Secure Msg Doctor Unassigned, Olive [facility] .840.114 350.1.13.10 4.2.7.2.686 [id number] [facility] 2022-01-21 14:20:00 2022-01-21 14:20:00 Outpatient RADU TREVINO [facility] [id number] [facility] 2021-12-09 16:00:00 2021-12-09 16:00:00 Outpatient ROBERTH GOMEZ [facility] [id number] [facility] 2021-12-09 16:00:00 2021-12-09 16:00:00 Imm/Inj Visit Nurse, Tahira Posharmila Immunizatio Roberth Ag[facility] ..840.114 350.1.13.10 4.2.7.2.686 [id number] [facility] 2021-11-03 10:00:00 2021-11-03 10:34:26 Outpatient GENET WOODALL [facility] [id number] [facility] 2021-11-03 09:48:28 2021-11-03 10:34:26 Urgent Care Genet David Marcia Faulkner [facility]?[employer] 1.2114 350.1.13.10 4.2.7.2.686 [id number] [facility] 2021-11-01 00:00:00 2021-11-01 00:00:00 Orders Only Doctor Unassigned, Olive [facility] 1.20.114 350.1.13.10 4.2.7.2.686 [id number] [facility] 2021-09-13 15:20:28 2021-09-13 15:51:39 Office Visit Diamante Puri [facility] Medical Office Building 1.114 350.1.13.10 4.2.7.2.686 [id number] [facility] 2021-09-13 15:30:00 2021-09-13 15:30:00 Outpatient R DIAMANTE UPRI [facility] [id number] [facility] 2021-07-16 00:00:00 2021-07-16 00:00:00 Orders Only Doctor Unassigned, Olive [facility] 1.114 350.1.13.10 4.2.7.2.686 [id number] [facility] 2021-04-10 13:03:45 2021-04-10 13:18:45 Office Visit [facility] Medical Office Building 1.2.114 350.1.13.10 4.2.7.2.686 [id number] [facility] 2021-04-10 13:03:45 2021-04-10 13:18:45 Office Visit [facility] Medical Office Building 1.2.114 350.1.13.10 4.2.7.2.686 [id number] 2021-04-10 13:15:00 2021-04-10 13:15:00 Outpatient ESPERANZA PERES [facility] [id number] [facility] 2021-02-22 16:54:52 2021-02-22 17:09:52 Warehouse Foreman Visit Pob, Adc Lab [facility] 1.2.840.114 350.1.13.10 4.2.7.2.686 [id number] [facility] 2021-02-22 17:00:00 2021-02-22 17:00:00 [id number] 2021-02-22 00:00:00 2021-02-22 00:00:00 Telephone Esperanza Hector [facility] Office Building 1.2.840.114 350.1.13.10 4.2.7.2.686 [id number] [facility] 2021-01-29 00:00:00 2021-01-29 00:00:00 Telephone Lilliam Garcia [facility] 1.2.840.114 350.1.13.10 4.2.7.2.686 [id number] [facility] 2021-01-24 13:43:05 2021-01-24 14:17:20 Office Visit Lilliam Garcia [facility] 1.2.840.114 350.1.13.10 4.2.7.2.686 [id number] [facility] 2021-01-24 13:45:00 2021-01-24 13:45:00 Outpatient R LILLIAM GARCIA [facility] [id number] [facility] 2021-01-03 11:50:00 2021-01-03 11:50:00 Outpatient LIDIA REVELES [facility] [id number] [facility] 2020-12-06 13:00:00 2020-12-06 13:00:00 Outpatient LIDIA REVELES [facility] [id number] [facility] 2020-10-10 13:17:03 2020-10-10 14:05:41 [facility] 1.2.840.114 350.1.13.10 4.2.7.2.686 [id number] [facility] 2020-10-10 13:30:00 2020-10-10 13:30:00 Outpatient Vicky HECTOR [facility] [id number] [facility] 2020-10-05 08:58:59 2020-10-05 23:59:00 Hospital Encounter Lilliam Garcia [facility] 1.2.840.114 350.1.13.10 4.2.7.2.686 [id number] [facility] 2020-10-05 10:02:03 2020-10-05 10:25:44 Office Visit Lilliam Garcia [facility] Surgical Special stella [place] 1.2.840.114 350.1.13.10 4.2.7.2.686 [id number] [facility] 2020-10-05 10:15:00 2020-10-05 10:15:00 Outpatient R LILLIAM GARCIA [facility] [id number] [facility] 2020-10-04 00:00:00 2020-10-04 00:00:00 Telephone Lilliam Garcia [facility] Surgical Special stella [place] 1.2.840.114 350.1.13.10 4.2.7.2.686 [id number] [facility] 2020-10-03 13:10:26 2020-10-03 13:25:26 Office Visit Diamante Puri [facility] Office Building One 1.284.114 350.1.13.10 4.2.7.2.686 [id number] [facility] 2020-10-03 13:15:00 2020-10-03 13:15:00 Outpatient R DIAMANTE PURI [facility] [id number] [facility] 2020-09-06 13:42:56 2020-09-06 14:22:49 Office Visit Esperanza Hector [facility] 1.2.114 350.1.13.10 4.2.7.2.686 [id number] [facility] 2020-09-06 14:00:00 2020-09-06 14:00:00 Outpatient R MISSY [facility] [id number] [facility] 2020-08-30 13:41:47 2020-08-30 15:07:35 [facility] 1.284.114 350.1.13.10 4.2.7.2.686 [id number] [facility] 2020-08-30 14:00:00 2020-08-30 14:00:00 Outpatient R DEAN [facility] [id number] [facility] 2020-08-01 00:00:00 2020-08-01 00:00:00 Telephone Sayra Mooney [facility] Building 1.284.114 350.1.13.10 4.2.7.2.686 [id number] [facility] 2020-07-30 10:47:16 2020-07-30 11:02:16 Warehouse Foreman Visit Lc, Adc Lab Main Sayra Mooney [facility] Building 1.284.114 350.1.13.10 4.2.7.2.686 [id number] [facility] 2020-07-30 11:00:00 2020-07-30 11:00:00 Outpatient R SAYRA MOONEY [facility] [id number] [facility] 2020-07-30 00:00:00 2020-07-30 00:00:00 Telephone Sayra Mooney [facility] 1.2.840.114 350.1.13.10 4.2.7.2.686 [id number] [facility] 2020-06-13 00:00:00 2020-06-13 00:00:00 Pre Visit Outreach Diamante Puri [facility] 1.2.840.114 350.1.13.10 4.2.7.2.686 [id number] [facility] 2020-05-09 13:30:00 2020-05-09 13:30:00 Outpatient R SAYRA MOONEY [facility] [id number] [facility] 2020-05-02 14:06:57 2020-05-02 15:06:20 Office Visit Sayra Mooney [facility] 1.2.840.114 350.1.13.10 4.2.7.2.686 [id number] [facility] 2020-05-02 14:15:00 2020-05-02 14:15:00 Outpatient R SAYRA MOONEY [facility] [id number] [facility] 2020-05-01 19:00:00 2020-05-02 04:59:59 Outpatient nullFlavo r [facility] [id number] Fany Schmitt 2020-05-01 19:30:00 2020-05-01 19:30:00 Ambulatory Pre-Reg nullFlavo r [facility] [id number] Fany Schmitt 2020-05-01 13:45:00 2020-05-01 13:45:00 Appointmen t; PARESH BOLES M.D. SANGALLI, MARC, M.D. 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 [facility] 2020-01-03 00:00:00 2020-01-03 00:00:00 Orders Only Doctor Unassigned, Olive [facility] 1.840.114 350.1.13.10 4.2.7.2.686 [id number] [facility] 2019-12-27 00:00:00 2019-12-27 00:00:00 Telephone Diamante Puri [facility] Office Building One ..114 350.1.13.10 4.2.7.2.686 [id number] [facility] 2019-12-23 00:00:00 2019-12-23 00:00:00 Telephone Sayra Mooney [facility] Building 1.0.114 350.1.13.10 4.2.7.2.686 [id number] [facility] 2019-12-21 12:57:43 2019-12-21 13:12:43 Warehouse Foreman Visit Lc, Tahira Lab Main Sayra Mooney [facility] Building 1.2.840.114 350.1.13.10 4.2.7.2.686 [id number] [facility] 2019-12-21 00:00:00 2019-12-21 00:00:00 Telephone Sayra Mooney [facility] Building 1.2.840.114 350.1.13.10 4.2.7.2.686 [id number] [facility] 2019-12-21 00:00:00 2019-12-21 00:00:00 Orders Only Doctor Unassigned, Olive [facility] 1.2.840.114 350.1.13.10 4.2.7.2.686 [id number] [facility] 2019-07-28 00:00:00 2019-07-28 00:00:00 Telephone Glendy Oconnell [facility] Office Building One 1.2.840.114 350.1.13.10 4.2.7.2.686 [id number] [facility] 2019-07-26 10:34:11 2019-07-26 11:21:22 Office Visit Glendy Oconnell [facility] Office Building One 1.2.840.114 350.1.13.10 4.2.7.2.686 [id number] [facility] 2019-07-26 00:00:00 2019-07-26 00:00:00 Orders Only Doctor Unassigned, Olive [facility] 1.2.840.114 350.1.13.10 4.2.7.2.686 [id number] [facility] 2019-03-08 23:23:36 2019-03-09 23:23:36 Between Visit nullFlavo r [facility] [facility] [place] [id number] Fany Schmitt 2019-03-07 20:30:00 2019-03-08 04:59:59 Outpatient nullFlavo r [facility] [place] [id number] Fany Scmhitt 2019-03-07 19:30:00 2019-03-08 04:59:59 Outpatient nullFlavo r [facility] [facility] [place] [id number] Fany Schmitt 2019-02-10 14:00:00 2019-02-10 14:00:00 Ambulatory Pre-Reg nullFlavo r [facility] [facility] [place] [id number] Fany Schmitt 2018-11-08 16:00:00 2018-11-08 16:00:00 Ambulatory Pre-Reg nullFlavo r [facility] [facility] [place] [id number] Fany Schmitt 2018-11-08 10:00:00 2018-11-08 10:00:00 Outpatient CRISTIAN FOSTER [id number] Fany Schmitt 2017-11-02 16:00:00 2017-11-03 05:59:59 Outpatient nullFlavo r [facility] [facility] [place] [id number] Fany Schmitt 2017-11-02 15:30:00 2017-11-03 05:59:59 Outpatient nullFlavo r [facility] [place] [id number] Fany Schmitt 2017-10-28 14:55:00 2017-10-28 14:55:00 Outpatient TISHA QUIROZ [facility] [id number] [facility] 2016-10-29 14:00:00 2016-10-29 14:00:00 Outpatient CRISTIAN FOSTER [id number] Fany Schmitt 2016-10-29 13:30:00 2016-10-29 13:30:00 Outpatient CRISTIAN FOSTER [id number] Fany Schmitt Results Test Description Test Time Test Comments Results Result Co mments Source [facility][Q] THINPREP TIS AND HPV mRNA E6/[id number] 00:00:00* Test Item Value Reference Range Interpretation Comme nts CLINICAL INFORMATION: (test code = CLINICAL INFORMATION:) See Comment N PREVIOUS HX OF A BN PAP LMP: (test code = LMP:) See Comment N NGF PREV. PAP: (test code = PREV. PAP:) See Comment N NONE GIVEN PREV. BX: (test code = PREV. BX:) See Comment N NONE GIVEN SOURCE: (test code = SOURCE:) See Comment N VAGINAL STATEMENT OF ADEQUACY: (test code = STATEMENT OF ADEQUACY:) See Comment N SATISFACTORY FOR EVALUATION INTERPRETATION/RE SULT:; Normal (test code = 67846-3) See Comment N Negative for intraepithelial lesion or malignancy. COMMENT:; Normal (test code = 65720-9) See Comment N This Pap test ba s been evaluated with computerassisted technology. TELEHEALTH COORDINATOR: (test code = TELEHEALTH COORDINATOR: ) See Comment N ABS, CT(ASCP)CT screening location: [place] [address] REVIEW TELEHEALTH COORDINATOR: (test code = REVIEW TELEHEALTH COORDINATOR: ) See Comment N PAUL, CT(ASCP)CT screening location: [place] [address] HPV mRNA E6/E7 (test code = HPV mRNA E6/E7) Not Detected Not Detected N This test was pe rformed using the APTIMA HPV Assay ([employer] This assay detects E6/E7 viral messenger RNA (mRNA) from 14high-risk HPV types (16,18,31,33,35,39,45,51 ,52,56,58,59,66,68). The analytical performance characteristics ofthis assay have been determined by [employer]. The modifications have not beencleared or approved by the FDA. This assay hasbeen validated pursuant to the CLIA regulationsand is used for clinical purposes. See Comment (test code = See Comment) See Comment EXPLANATORY NOTE : The Pap is a screening test for cervical cancer. It is not a diagnostic test and is subject to false negative and false positive results. It is most reliable when a satisfactory sample, regularly obtained, is submitted with relevant clinical findings and history, and when the Pap result is evaluated along with historic and current clinical information. [facility][QL] URINALYSIS, COMPLETE W/REFLEX TO [id number] 00:00:00* Test Item Value Reference Range Interpretation Comme nts COLOR; Normal (test code = 5778-6) YELLOW YELLOW N APPEARANCE (test code = APPEARANCE) CLEAR CLEAR N SPECIFIC GRAVITY; Normal (test code = 2965-2) 1.008 1.001-1.035 N PH; Normal (test code = 2756-5) 5.5 5.0-8.0 N GLUCOSE; Normal (test code = 1547-9) NEGATIVE NEGATIVE N BILIRUBIN; Normal (test code = 32749-4) NEGATIVE NEGATIVE N KETONES; Normal (test code = 93296-4) NEGATIVE NEGATIVE N OCCULT BLOOD; Abnormal (test code = 92489-2) TRACE NEGATIVE A PROTEIN; Normal (test code = 07682-0) NEGATIVE NEGATIVE N NITRITE (test code = NITRITE) NEGATIVE NEGATIVE N LEUKOCYTE ESTERASE (test code = LEUKOCYTE ESTERASE) NEGATIVE NEGATIVE N WBC; Normal (test code = 6690-2) NONE SEEN < OR = 5 N RBC; Normal (test code = 789-8) NONE SEEN < OR = 2 N SQUAMOUS EPITHELIAL CELLS; Normal (test code = 03914-7) NONE SEEN < OR = 5 N BACTERIA; Normal (test code = 630-4) NONE SEEN NONE SEEN N HYALINE CAST; Normal (test code = 69475-3) NONE SEEN NONE SEEN N REFLEXIVE URINE CULTURE (test code = REFLEXIVE URINE CULTURE) NO CULTURE INDICATED [facility] Time and [id number] 09:16:02* Test Item Value Reference Range Interpretation Comme nts Prothrombin Time (test code = Prothrombin Time) 12.0 seconds 9.8-13.4 INR (test code = INR) 1.0 ratio 0.6-1.2 Partial Thromboplastin [id number] 09:16:02* Test Item Value Reference Range Interpretation Comme nts Partial Thromboplastin Time (test code = Partial Thromboplastin Time) 31.20 seconds 24.39-37.25 Comprehensive Metabolic [id number] 09:12:33* Test Item Value Reference Range Interpretation Comme nts Sodium Level (test code = So dium Level) 140.0 mmol/L 135.0-145.0 Potassium Level (test code = Potassium Level) 3.9 mmol/L 3.5-5.1 Chloride Level (test code = Chloride Level) 103 mmol/L 98-105 CO2 (test code = CO2) 26 mmol/L 22-29 Anion Gap (test code = Anion Gap) 11 mmol/L 7-16 BUN (test code = BUN) 17.90 mg/dL 8.00-23.00 Creatinine Level (test code = Creatinine Level) 0.80 mg/dL 0.50-0.90 BUN/Creat Ratio (test code = BUN/Creat Ratio) 22 N Glucose Level (test code = Glucose Level) 114 mg/dL 70-115 Calcium Level (test code = Calcium Level) 9.4 mg/dL 8.3-10.5 Alk Phos (test code = Alk Phos) 75 U/L 35-104 Bilirubin Total (test code = Bilirubin Total) 0.9 mg/dL 0.1-0.9 Albumin Level (test code = Albumin Level) 4.2 g/dL 3.5-5.2 Protein Total (test code = Protein Total) 6.9 g/dL 6.4-8.3 ALT (test code = ALT) 17 U/L 1-33 AST (test code = AST) 15 U/L 1-32 Globulin (test code = Globulin) 2.7 g/dL 2.9-3.1 L A/G Ratio (test code = A/G Ratio) 1.6 ratio N Comprehensive Metabolic [id number] 09:12:33* Test Item Value Reference Range Interpretation Comme nts Sodium Level (test code = Sodium Level) 140.0 mmol/L 135.0-145.0 Potassium Level (test code = Potassium Level) 3.9 mmol/L 3.5-5.1 Chloride Level (test code = Chloride Level) 103 mmol/L 98-105 CO2 (test code = CO2) 26 mmol/L 22-29 Anion Gap (test code = Anion Gap) 11 mmol/L 7-16 BUN (test code = BUN) 17.90 mg/dL 8.00-23.00 Creatinine Level (test code = Creatinine Level) 0.80 mg/dL 0.50-0.90 BUN/Creat Ratio (test code = BUN/Creat Ratio) 22 N Glucose Level (test code = Glucose Level) 114 mg/dL 70-115 Calcium Level (test code = Calcium Level) 9.4 mg/dL 8.3-10.5 Alk Phos (test code = Alk Phos) 75 U/L 35-104 Bilirubin Total (test code = Bilirubin Total) 0.9 mg/dL 0.1-0.9 Albumin Level (test code = Albumin Level) 4.2 g/dL 3.5-5.2 Protein Total (test code = Protein Total) 6.9 g/dL 6.4-8.3 ALT (test code = ALT) 17 U/L 1-33 AST (test code = AST) 15 U/L 1-32 Globulin (test code = Globulin) 2.7 g/dL 2.9-3.1 L A/G Ratio (test code = A/G Ratio) 1.6 ratio N eGFR AA (test code = eGFR AA) >60 mL/min/1.73 m2 N eGFR (estimated Glomerular Filtration Rate) is an estimated value, calculated from the patient's serum creatinine using the MDRD equation. It is NOT the patient's actual GFR. The eGFR provides a more clinically useful measure of kidney disease than serum creatinine alone.This calculation takes sex and race into account, if the information is provided. If the race is not provided, and the patient is -Greek, multiply by 1.212. If sex is not provided, and the patient is female, multiply by 0.742. Results for patients <18 years of age have not been validated by the MDRD study and should be interpreted with caution. eGFR Result Interpretation:eGFR > or = 60 is in the Normal RangeeGFR < 60 may mean kidney diseaseeGFR < 15 may mean kidney failure Ranges recommended by the National Kidney Foundation, http://nkdep.nih.gov Comprehensive Metabolic [id number] 09:12:33* Test Item Value Reference Range Interpretation Comme nts Sodium Level (test code = Sodium Level) 140.0 mmol/L 135.0-145.0 Potassium Level (test code = Potassium Level) 3.9 mmol/L 3.5-5.1 Chloride Level (test code = Chloride Level) 103 mmol/L 98-105 CO2 (test code = CO2) 26 mmol/L 22-29 Anion Gap (test code = Anion Gap) 11 mmol/L 7-16 BUN (test code = BUN) 17.90 mg/dL 8.00-23.00 Creatinine Level (test code = Creatinine Level) 0.80 mg/dL 0.50-0.90 BUN/Creat Ratio (test code = BUN/Creat Ratio) 22 N Glucose Level (test code = Glucose Level) 114 mg/dL 70-115 Calcium Level (test code = Calcium Level) 9.4 mg/dL 8.3-10.5 Alk Phos (test code = Alk Phos) 75 U/L 35-104 Bilirubin Total (test code = Bilirubin Total) 0.9 mg/dL 0.1-0.9 Albumin Level (test code = Albumin Level) 4.2 g/dL 3.5-5.2 Protein Total (test code = Protein Total) 6.9 g/dL 6.4-8.3 ALT (test code = ALT) 17 U/L 1-33 AST (test code = AST) 15 U/L 1-32 Globulin (test code = Globulin) 2.7 g/dL 2.9-3.1 L A/G Ratio (test code = A/G Ratio) 1.6 ratio N eGFR AA (test code = eGFR AA) >60 mL/min/1.73 m2 N eGFR (estimated Glomerular Filtration Rate) is an estimated value, calculated from the patient's serum creatinine using the MDRD equation. It is NOT the patient's actual GFR. The eGFR provides a more clinically useful measure of kidney disease than serum creatinine alone.This calculation takes sex and race into account, if the information is provided. If the race is not provided, and the patient is -Greek, multiply by 1.212. If sex is not provided, and the patient is female, multiply by 0.742. Results for patients <18 years of age have not been validated by the MDRD study and should be interpreted with caution. eGFR Result Interpretation:eGFR > or = 60 is in the Normal RangeeGFR < 60 may mean kidney diseaseeGFR < 15 may mean kidney failure Ranges recommended by the National Kidney Foundation, http://nkdep.nih.gov eGFR Non-AA (test code = eGFR Non-AA) >60.00 mL/min/1.73 m2 N eGFR (estimated Glomerular Filtration Rate) is an estimated value, calculated from the patient's serum creatinine using the MDRD equation. It is NOT the patient's actual GFR. The eGFR provides a more clinically useful measure of kidney disease than serum creatinine alone.This calculation takes sex and race into account, if the information is provided. If the race is not provided, and the patient is -Greek, multiply by 1.212. If sex is not provided, and the patient is female, multiply by 0.742. Results for patients <18 years of age have not been validated by the MDRD study and should be interpreted with caution. eGFR Result Interpretation:eGFR > or = 60 is in the Normal RangeeGFR < 60 may mean kidney diseaseeGFR < 15 may mean kidney failure Ranges recommended by the National Kidney Foundation, http://nkdep.nih.gov Complete Blood Count with [id number] 09:09:24* Test Item Value Reference Range Interpretation Comme nts WBC (test code = WBC) 6.6 x10 4.4-10.5 RBC (test code = RBC) 4.59 x10 3.75-5.20 Hgb (test code = Hgb) 13.6 g/dL 12.2-14.8 Hct (test code = Hct) 40.5 % 36.5-44.4 MCV (test code = MCV) 88.20 fL 80.00-100.00 MCHC (test code = MCHC) 33.60 g/dL 32.00-37.50 RDW CV (test code = RDW CV) 12.5 % 11.5-14.5 MCH (test code = MCH) 29.6 pg 27.0-32.5 Platelets (test code = Platelets) 175.0 x10 140.0-440.0 MPV (test code = MPV) 11.2 fL N Slide Review (test code = Slide Review) Auto Auto Result crea mary by [id number] nRBC (test code = nRBC) 0 N NRBC Abs (test code = NRBC Abs) 0.00 x10 N IPF (test code = IPF) 0 % N Automated [id number] 09:09:24* Test Item Value Reference Range Interpretation Comme nts Neutro Auto (test code = Kandi tro Auto) 64.1 % 36.0-70.0 Lymph Auto (test code = Lymph Auto) 22.0 % 12.0-44.0 [place] Auto (test code = [place] Auto) 12.1 % 0.0-11.0 H Eos, Auto (test code = Eos, Auto) 1.1 % 0.0-7.0 Basophil Auto (test code = B asophil Auto) 0.5 % 0.0-2.0 Neutro Absolute (test code = Neutro Absolute) 4.2 x10 1.6-7.4 Lymph Absolute (test code = Lymph Absolute) 1.44 x10 .50-4.60 [place] Absolute (test code = M robbie Absolute) .79 x10 .00-1.20 Eos Absolute (test code = Eo s Absolute) 0.07 x10 0.00-0.74 Baso Absolute (test code = B aso Absolute) 0.03 x10 0.00-0.21 IG [id number] 09:09:24* Test Item Value Reference Range Interpretation Comme nts IG (test code = IG) 0.2 % 0.0-5.0 IG Abs (test code = IG Abs) 0 x10 N Thyroxine (T4)2017-10-29 23:18:00* Test Item Value Reference Range Interpretation Comme nts T4, Total (test code = TT4) 8.8 ug/dL 4.6-12.0 N Notes Date/Time Note Provider Source 2024-06-03 10:44:46 Received Lab results from [facility]. Placed in Providers box. Fifi [facility] 2024-06-03 10:11:15 Received RAD Chest Report from [facility]. Placed in Providers box. Fifi Sheffield [facility] 2020-05-01 14:24:34 BILATERAL DIGITAL SCREENING MAMMOGRAM WITH CAD: 05/01/2020 CLINICAL: Screening/Screening. Current study was evaluated with a Computer Aided Detection (CAD) system. COMPARISON:Comparison is made to exams dated: 03/07/2019 mammogram, 11/02/2017 mammogram, 10/29/2016 mammogram, and 03/01/2015 mammogram - [facility]. TECHNIQUE: Mammographic views were obtained using digital acquisition. Current study was also evaluated with a Computer Aided Detection (CAD) system. FINDINGS: There are scattered fibroglandular densities in both breasts. There are benign calcifications in both breasts. No significant masses, calcifications, or other findings are seen in either breast. There has been no significant interval change. IMPRESSION: BENIGN RECOMMENDATION:There is no mammographic evidence of malignancy. A 1 year screening mammogram is recommended.(05/02/2021) This exam was interpreted at [id number] for [facility]. Donna Regalado M.D. ap/penrad:05/01/2020 15:52:16 [employer](s): Mahnaz Hummel [facility] letter sent: BI-RADS 1/2 Mammogram BI-RADS: 2 Benign [facility] 2020-05-01 14:24:34 BILATERAL DIGITAL SCREENING MAMMOGRAM WITH CAD: 05/01/2020 CLINICAL: Screening/Screening. Current study was evaluated with a Computer Aided Detection (CAD) system. COMPARISON:Comparison is made to exams dated: 03/07/2019 mammogram, 11/02/2017 mammogram, 10/29/2016 mammogram, and 03/01/2015 mammogram - [facility]. TECHNIQUE: Mammographic views were obtained using digital acquisition. Current study was also evaluated with a Computer Aided Detection (CAD) system. FINDINGS: There are scattered fibroglandular densities in both breasts. There are benign calcifications in both breasts. No significant masses, calcifications, or other findings are seen in either breast. There has been no significant interval change. IMPRESSION: BENIGN RECOMMENDATION:There is no mammographic evidence of malignancy. A 1 year screening mammogram is recommended.(05/02/2021) This exam was interpreted at [id number] for [facility]. Donna Regalado M.D. ap/penrad:05/01/2020 15:52:16 [employer](s): Mahnaz Hummel, [facility] letter sent: BI-RADS 1/2 Mammogram BI-RADS: 2 Benign [facility] 2019-03-07 14:23:00 BILATERAL DIGITAL SCREENING MAMMOGRAM WITH CAD: 03/07/2019 CLINICAL: Screening/Screening. Current study was evaluated with a Computer Aided Detection (CAD) system. COMPARISON:Comparison is made to exams dated: 11/02/2017 mammogram, 10/29/2016 mammogram, 03/01/2015 mammogram, and 02/23/2014 mammogram - [facility]. TECHNIQUE: Mammographic views were obtained using digital acquisition. Current study was also evaluated with a Computer Aided Detection (CAD) system. FINDINGS: There are scattered fibroglandular densities in both breasts. There are benign calcifications in both breasts. No significant masses, calcifications, or other findings are seen in either breast. There has been no significant interval change. IMPRESSION: BENIGN RECOMMENDATION:There is no mammographic evidence of malignancy. A 1 year screening mammogram is recommended.(03/07/2020) This exam was interpreted at [id number] for [facility] [place]. Carla faulknert/penrad:03/07/2019 15:29:05 [employer](s): Mahnaz Hummel, [facility] letter sent: BI-RADS 1/2 Mammogram BI-RADS: 2 Benign [facility] 2019-03-07 14:23:00 BILATERAL DIGITAL SCREENING MAMMOGRAM WITH CAD: 03/07/2019 CLINICAL: Screening/Screening. Current study was evaluated with a Computer Aided Detection (CAD) system. COMPARISON:Comparison is made to exams dated: 11/02/2017 mammogram, 10/29/2016 mammogram, 03/01/2015 mammogram, and 02/23/2014 mammogram - [facility]. TECHNIQUE: Mammographic views were obtained using digital acquisition. Current study was also evaluated with a Computer Aided Detection (CAD) system. FINDINGS: There are scattered fibroglandular densities in both breasts. There are benign calcifications in both breasts. No significant masses, calcifications, or other findings are seen in either breast. There has been no significant interval change. IMPRESSION: BENIGN RECOMMENDATION:There is no mammographic evidence of malignancy. A 1 year screening mammogram is recommended.(03/07/2020) This exam was interpreted at [id number] for [facility] [place]. Carla faulknert/penrad:03/07/2019 15:29:05 [employer]s): Mahnaz Hummel, [facility] letter sent: BI-RADS 1/2 Mammogram BI-RADS: 2 Benign [facility] 2017-11-02 14:22:29 CLINICAL: /Screening. Current study was evaluated with a Computer Aided Detection (CAD) system. COMPARISON:Comparison is made to exams dated: 10/29/2016 mammogram, 03/01/2015 mammogram, and 02/23/2014 mammogram - [facility]. TECHNIQUE: Mammographic views were obtained using digital acquisition. Current study was also evaluated with a Computer Aided Detection (CAD) system. FINDINGS: There are scattered fibroglandular densities in both breasts. Benign appearing densities are noted in the right breast. There are benign calcifications in both breasts. No significant masses, calcifications, or other findings are seen in either breast. There has been no significant interval change. IMPRESSION: BENIGN RECOMMENDATION:There is no mammographic evidence of malignancy. A 1 year screening mammogram is recommended.(11/03/2018) This exam was interpreted at [id number] for [facility] [place]. Carla fields/penrad:11/02/2017 14:30:22 [employer](s): Josselyn Maguire [facility] letter sent: BI-RADS 1/2 Mammogram BI-RADS: 2 [facility]ign [facility] 2017-11-02 14:22:29 CLINICAL: /Screening. Current study was evaluated with a Computer Aided Detection (CAD) system. COMPARISON:Comparison is made to exams dated: 10/29/2016 mammogram, 03/01/2015 mammogram, and 02/23/2014 mammogram - [facility]. TECHNIQUE: Mammographic views were obtained using digital acquisition. Current study was also evaluated with a Computer Aided Detection (CAD) system. FINDINGS: There are scattered fibroglandular densities in both breasts. Benign appearing densities are noted in the right breast. There are benign calcifications in both breasts. No significant masses, calcifications, or other findings are seen in either breast. There has been no significant interval change. IMPRESSION: BENIGN RECOMMENDATION:There is no mammographic evidence of malignancy. A 1 year screening mammogram is recommended.(11/03/2018) This exam was interpreted at [id number] for [facility] [place]. Carla fields/penrad:11/02/2017 14:30:22 [employer]s): Josselyn Maguire, [facility] letter sent: BI-RADS 1/2 Mammogram BI-RADS: 2 [facility] 2016-10-29 13:17:38 - DIGITAL MAMMO SCRE ENING ARNOLDO MA BILATERAL DIGITAL SCREENING MAMMOGRAM WITH CAD: 10/29/2016 CLINICAL: Screening. Current study was evaluated with a Computer Aided Detection (CAD) system. Comparison is made to exam dated: 03/01/2015 mammogram - [facility]. There are scattered fibroglandular densities in both breasts. There are benign calcifications in both breasts. No significant masses, calcifications, or other findings are seen in either breast. There has been no significant interval change. IMPRESSION: BENIGN There is no mammographic evidence of malignancy. A 1 year screening mammogram is recommended. Marin vora/penrad:11/06/2016 11:00:02 [employer]: Mahnaz Hummel, [facility] This exam was dictated and interpreted by [id number] [facility]. letter sent: Normal exam Mammogram BI-RADS: 2 Benign [facility] 2016-10-29 13:17:38 - DIGITAL MAMMO SCRE ENING ARNOLDO MA BILATERAL DIGITAL SCREENING MAMMOGRAM WITH CAD: 10/29/2016 CLINICAL: Screening. Current study was evaluated with a Computer Aided Detection (CAD) system. Comparison is made to exam dated: 03/01/2015 mammogram - [facility]. There are scattered fibroglandular densities in both breasts. There are benign calcifications in both breasts. No significant masses, calcifications, or other findings are seen in either breast. There has been no significant interval change. IMPRESSION: BENIGN There is no mammographic evidence of malignancy. A 1 year screening mammogram is recommended. Marin vora/penrad:11/06/2016 11:00:02 [employer]: Mahnaz Hummel, [facility] This exam was dictated and interpreted by [id number] [facility]. letter sent: Normal exam Mammogram BI-RADS: 2 Benign [facility]
[2025-09-01 21:14] LABS: Absolute Lymphocytes (CBC) 1.6 K/uL (0.7-4.9); Hematocrit 41.3 % (36.0-45.0); Hemoglobin 14.2 g/dL (12.0-15.0); MCH 29.3 pg (27.0-35.0); MCHC 34.3 g/dL (32.0-36.0); MCV 85.4 fL (80-100); MPV 8.8 fL (7.6-11.3); Nucleated RBC Absolute Count 0.0 (0-0); Nucleated Red Blood Cells % 0.1 % (0-0); RBC Red Blood Cell Count 4.84 M/uL (3.86-4.86); White Blood Count 9.30 thou/uL (4.3-10.9)
[2025-09-01 21:34] LABS: ALT/SGPT 31.0 U/L (13-56); AST/SGOT 17.0 U/L (15-37); Albumin 3.8 g/dL (3.4-5.0); Albumin/Globulin Ratio 1.0 (1.1-1.8); Alkaline Phosphatase 75.0 U/L (45-117); Anion Gap 10.4 mEq/L (5.0-15.0); BUN Blood Urea Nitrogen 21.0 mg/dL (7-18); Globulin 3.7 g/dL (2.3-3.5); Glucose Level 144.0 mg/dL (74-106); Lipase 29.0 U/L (13-75); NT PRO-BNP 160.0 pg/mL (<125); Potassium 3.4 mEq/L (3.5-5.1); Troponin High Sensitivity 6.5 pg/mL (<58.9)
[2025-09-01] MEDS ORDERED: ONDANSETRON 4 MG/2 ML VIAL ONE ×2 (21:36→22:57)
[2025-09-01] MEDS ORDERED: HYDROMORPHONE HCL 0.5 MG/0.5 ML INJ ONE (21:36)
--- NOTE | 2025-09-01 22:10 | RAD REPORT ---
EXAMINATION: Abdomen Pelvis W Contrast CLINICAL INDICATION: Female, 75 years old.ABD PAIN TECHNIQUE: CT abdomen and pelvis was performed, after the administration of IV contrast, [facility]. Axial, sagittal and coronal reconstructions were obtained. One or more of the following dose reduction techniques were used: Automated exposure control, adjustment of the mA and/o r kV according to patient size, and/or iterative reconstruction. Unless otherwise specified, incidental findings do not require dedicated imaging follow-up. [id number]. COMPARISON: No prior exams FINDINGS: LOWER CHEST: No acute process identified. No significant pericardial effusion. Small hiatal hernia. UPPER GI: No significant abnormality. LIVER: No significant focal abnormality. GALLBLADDER/BILE DUCTS: Distended gallbladder but no pericholecystic inflammatory changes.? PANCREAS: No mass, ductal dilation, or gloria-pancreatic fluid. SPLEEN: Unremarkable. ADRENALS: No adrenal masses. KIDNEYS AND URETERS: No hydronephrosis. Low density and/or too small to characterize renal lesions wh ich are statistically benign. No renal calculi. No ureteral calculi. ABDOMINAL AORTA AND OTHER VESSELS: Mild atherosclerotic changes. PERITONEUM: No abnormal free fluid. No free air. LYMPH NODES: No pathologic lymphadenopathy. ABDOMINAL WALL: Small fat containing umbilical hernia. SMALL BOWEL/COLON: Small bowel has normal course and caliber. No colonic wall thickening or pericolon ic inflammatory changes. Normal appendix. Mild diverticulosis without diverticulitis. URINARY BLADDER: Underdistended but grossly unremarkable. REPRODUCTIVE ORGANS: Uterus surgically absent. No adnexal abnormality. MUSCULOSKELETAL: No acute or suspicious osseous abnormality. ADDITIONAL FINDINGS: None. IMPRESSION: No acute findings within the abdomen or pelvis. No appendicitis.
--- NOTE | 2025-09-01 22:12 | RAD REPORT ---
EXAM: Chest Single View HISTORY: 75 years Female CHEST PAIN COMPARISON: 05/17/2025 FINDINGS: LUNGS/PLEURA: The lungs are clear. No pleural effusions or pneumothorax. No pulmonary edema. CARDIAC/MEDIASTINUM: The cardiac silhouette is within normal limits. UPPER ABDOMEN: No significant abnormality. BONES: No acute abnormality. LINES/TUBES/OTHER: N/A IMPRESSION: No evidence of acute cardiopulmonary disease.
[2025-09-01 23:43] LABS: Thyroid Stimulating Hormone 2.58 uIU/mL (0.358-3.740)
[2025-09-02 00:33] LABS: Urine Microscopic Reflex YN NO UMIC
--- NOTE | 2025-09-02 01:30 | RAD REPORT ---
Clinical Indication: Bed Name: 19; ABD PAIN Comparison: September 01, 2025 at 10:08 PM TECHNIQUE: Sequential trans-axial images of the chest, abdomen and pelvis were obtained with a multi- detector helical CT after iodinated contrast administration per dissection CTA protocol. Coronal and sagittal reconstructions were obtained and provided as separate series. 3-D postprocessing recons tructions were obtained. IV CONTRAST: IV contrast dose was not provided All CT scans at this location are performed using dose optimization techniques as appropriate to perf orm the study. Radiation dose reduction technique was utilized including one or more of the following: Automated exp osure control, adjustment of the mA and/or kV according to patient size and use of iterative reconstruction technique. CT Radiation Dose DLP 1572.2 mGy-cm FINDINGS: CTA CHEST: VASCULAR STRUCTURES: The ascending thoracic aorta appears unremarkable. The aortic arch and descendin g thoracic aorta appear unremarkable. There is no thoracic aortic dissection. The great vessels are unremarkable. The main, right and left pulmonary arteries are normal. There are no central segmental pulmonary embo li noted. The peripheral pulmonary arteries are not well assessed on this exam. The superior vena cava is unremarkable. LUNG PARENCHYMA AND PLEURA: There are no lung nodules. There is no interstitial lung disease. There are no pleural effusions or pneumothorax. AIRWAY: The central airway is normal. MEDIASTINUM: There is no mediastinal lymphadenopathy. HEART: The cardiac chambers appear unremarkable. There is no pericardial effusion. OSSEOUS STRUCTURES: There are no definite acute osseous abnormalities seen. CTA ABDOMEN: ARTERIAL EVALUATION: The abdominal aorta is unremarkable. The celiac artery, superior mesenteric hailee ry and inferior mesenteric artery origins are widely patent. Bilateral renal arteries are patent. There are 1 right renal and 1 left renal arteries. There is no C T evidence of renal artery stenosis. ABDOMINAL SOLID ORGANS: The liver is slightly hypodense, consistent with mild fatty infiltration. The gallbladder is mildly distended. No surrounding inflammatory changes are noted. The pancreas, spleen, adrenal glands and kidneys are unremarkable. PERITONEUM AND RETROPERITONEUM: There is no retroperitoneal or abdominal lymphadenopathy. There is no abdominal ascites. STOMACH AND BOWEL: The noncontrast opacified stomach and loops of bowel in the abdomen are unremarkab le. The lack of orally administered contrast material limits assessment. Small hiatal hernia is noted. OSSEOUS STRUCTURES: There are no definite acute osseous abnormalities seen. CTA PELVIS: ARTERIAL EVALUATION: Bilateral common iliac, internal iliac, external iliac and common femoral arteri es appear unremarkable. NONVASCULAR STRUCTURES: There is no pelvic lymphadenopathy. There is no pelvic ascites. The bladder i s unremarkable. The patient is status post hysterectomy. Excreted contrast is noted within the vaginal region and correlation for incontinence may be helpful. BOWEL: The noncontrast opacified loops of small bowel and colon in the pelvis are unremarkable. The l ack of orally administered contrast material limits assessment. The appendix is normal in caliber without surrounding inflammatory changes. OSSEOUS STRUCTURES: There are no definite significant osseous abnormalities seen. IMPRESSION: 1. Unremarkable CT angiography of chest, abdomen and pelvis. No aortic dissection. Electronically signed by: Mario Carranza MD 09/02/2025 12:36 AM CDT RP Due to temporary technical issues with the PACS/UNI5 reporting system, reports are being raoul d by the in-house radiologist without review as a courtesy to ensure prompt reporting the interpreting radiologist is fully responsible for the content of the report. Transcribed Date/Time: 09/02/2025 1:29 AM
--- NOTE | 2025-09-02 02:49 | EDPHYS ---
Physician Documentation [facility] Name: Sera Min Age: 75 yrs Sex: Female : 1950 Arrival Date: 09/01/2025 Time: 20:32 Bed 19 Private MD: Eder Coyle ED Physician Hiro Frost Historical: - Allergies: 09/01 20:45 Codeine; dd2 - PMHx: 20:45 Hypercholesterolemia; Hypertension; dd2 20:47 Kidney stone; dd2 - PSHx: 20:45 heart cath x 2; CARDIAC STENTS (Unknown); dd2 - Immunization history:: Adult Immunizations up to date. - Infectious Disease History:: Denies. - Social history:: Smoking status: Patient denies any tobacco usage or history of. Vital Signs: 20:42 BP 160 / 76; Pulse 66; Resp 18 S; Pulse Ox 100% on R/A; Weight 104.33 kg; Height 5 ft. dd2 2 in. ; Pain 09/08; 20:50 Temp 96.2(A); ha1 22:00 BP 163 / 72; Pulse 69; Resp 20; Pulse Ox 98% on R/A; kj2 23:00 BP 168 / 70; Pulse 59; Resp 20; Pulse Ox 95% on R/A; kj2 09/02 00:12 BP 167 / 67; Pulse 74; Resp 18; Pulse Ox 98% on 2 lpm NC; kj2 01:14 BP 182 / 81; Pulse 67; Resp 18; Pulse Ox 98% on 2 lpm NC; ss12 02:16 BP 173 / 71; Pulse 59; Resp 17; Pulse Ox 98% on 2 lpm NC; tb4 03:31 BP 179 / 76; Pulse 68; Resp 18; Pulse Ox 97% on 2 lpm NC; tb4 09/01 20:42 Body Mass Index 42.07 (104.33 kg, 157.48 cm) dd2 09/01 20:42 Pain Scale: Adult dd2 MDM: 09/01 20:44 Medical Screening Exam initiated tt7 09/02 01:20 Differential diagnosis: ACS, aortic dissection, pancreatitis, cholecystitis, tt7 cholelithiasis, gastritis, small bowel obstruction, pneumothorax, pneumonia. Data reviewed: vital signs, nurses notes, lab test result(s), EKG, radiologic studies. ED course: I independently interpreted the patient's EKG performed on 09/01/2025 at 2058. On my interpretation, EKG demonstrates normal sinus rhythm, ventricular rate 66 bpm, left axis, left bundle branch block, no Sgarbossa criteria, no STEMI. 09/01 21:04 Order name: CBC with Diff; Complete Time: 22:13 tt7 09/01 21:04 Order name: NT PRO-BNP; Complete Time: 22:13 tt7 09/01 21:04 Order name: Troponin HS; Complete Time: 22:13 tt7 09/01 21:04 Order name: CMP; Complete Time: 22:13 tt7 09/01 21:04 Order name: Lipase; Complete Time: 22:13 tt7 09/01 21:06 Order name: Glucose, Ancillary Testing; Complete Time: 22:13 EDMS 09/01 21:15 Order name: UA Rfx Jose Cult if indicated; Complete Time: 00:48 tt7 09/01 22:42 Order name: Cortisol; Complete Time: 03:03 tt7 09/01 22:42 Order name: TSH; Complete Time: 00:48 tt7 09/01 22:42 Order name: T4 Free; Complete Time: 00:48 tt7 09/02 01:48 Order name: Troponin High Sensitivity; Complete Time: 02:47 tt7 09/01 21:04 Order name: XRAY Chest (1 view); Complete Time: 22:13 tt7 09/01 21:15 Order name: CT Abd/Pelvis - IV Contrast Only; Complete Time: 22:13 tt7 09/01 22:42 Order name: US Abdomen Limited tt7 09/01 22:42 Order name: CT Aorta for Dissection tt7 09/01 21:04 Order name: EKG; Complete Time: 21:04 tt7 09/01 21:04 Order name: Cardiac monitoring; Complete Time: 21:05 tt7 09/01 21:04 Order name: EKG - Nurse/Tech; Complete Time: 21:05 tt7 09/01 21:04 Order name: IV Saline Lock; Complete Time: 21:05 tt7 09/01 21:04 Order name: Labs collected and sent; Complete Time: 21:09 tt7 09/01 21:04 Order name: O2 Per Protocol; Complete Time: 21:09 tt7 09/01 21:04 Order name: O2 Sat Monitoring; Complete Time: 21:09 tt7 09/01 22:42 Order name: EKG - Nurse/Tech; Complete Time: 23:25 tt7 Administered Medications: 09/01 21:40 Drug: HYDROmorphone IVP 0.5 mg IVP once Route: IVP; Site: left antecubital; kj2 23:46 Follow up: Response: No adverse reaction kj2 21:40 Drug: Ondansetron IVP 4 mg IVP once; over 2 minutes Route: IVP; Site: left antecubital; kj2 23:46 Follow up: Response: No adverse reaction kj2 22:21 Drug: Droperidol IVP 1.25 mg IVP once Route: IVP; Site: left antecubital; kj2 23:46 Follow up: Response: No adverse reaction kj2 23:13 Drug: Ondansetron IVP 4 mg IVP once; over 2 minutes Route: IVP; Site: left antecubital; kj2 23:25 Follow up: Response: No adverse reaction kj2 Point of Care Testing: Blood Glucose: 20:54 Blood Glucose: 134 mg/dL; kj2 Ranges: Critical Glucose Levels:Adult <50 mg/dl or >400 mg/dl <40 mg/dl or >180 mg/dl Disposition Summary: 09/02/25 02:48 Discharge Ordered Notes: Location: Home tt7 Problem: new tt7 Symptoms: have improved tt7 Condition: Stable tt7 Diagnosis - Nausea with vomiting, unspecified tt7 - Abdominal pain, Generalized tt7 Followup: tt7 - With: Emergency Department - When: As needed - Reason: Followup: tt7 - With: Eder Coyle MD - When: 1 - 2 days - Reason: Recheck today's complaints, Re-evaluation by your physician Discharge Instructions: - Discharge Summary Sheet tt7 - Nausea and Vomiting, Adult tt7 Forms: - Medication Reconciliation Form tt7 - Antibiotic Education tt7 - Prescription Opioid Use tt7 - Patient Portal Instructions tt7 - Leadership Thank You Letter tt7 Prescriptions: - ondansetron 4 mg Oral Tablet,disintegrating - take 1 tablet ORAL route every 8 hours As needed as needed for nausea and tt7 vomiting; 20 tablet; Refills: 0, Product Selection Permitted Addendum: 09/05/2025 09:26 Addendum: 75-year-old female presents emergency department complaining of acute onsets t t7 of abdominal pain, she describes the pain as achy, diffuse abdominal pain, radiates to the back, associated with diaphoresis, she reports the pain as 10/10 in severity. Past medical history includes kidney stones and hypertension. Constitutional: denies fever Respiratory: denies SOB, cough Cardiovascular: denies chest pain, palpitations GI: Reports abdominal pain, nausea, vomiting Neuro: denies focal weakness Skin: denies rash Constitutional: vital signs reviewed, uncomfortable appearing Head: normocephalic, atraumatic Eyes: no conjunctival injection, anicteric sclerae ENMT: mucus membranes moist Neck: trachea midline, no JVD, no meningismus Respiratory: normal respiratory effort, no accessory muscle use, lungs CTAB, no wheezing or rales Cardiovascular: Regular rate and rhythm, no murmurs, no rubs, no lower extremity edema Abdomen: soft, nondistended, moderate diffuse tenderness, no guarding or rebound, negative Nicolas's sign, no McBurney point tenderness MSK: normal ROM of extremities, no gross deformities Skin: warm, dry, intact, no rash Neuro: alert and oriented with appropriate mental status, normal speech, follows commands, no focal neurologic deficits Psych: appropriate mood and affect Broad workup ordered including CT imaging of the abdomen/pelvis and right upper quadrant ultrasound, standard cardiac workup ordered, overall no acute findings, CT angiogram and for aortic pathology was ordered and also negative, patient given multiple rounds of parenteral opioids, was reassessed, pain significantly improved, nausea controlled, after completion of the patient's emergency department evaluation, I do not suspect a life-threatening or disabling process. Patient is medically stable and not in need of emergent medical intervention. I had a detailed discussion with the patient regarding the historical points, exam findings, emergency department evaluation, diagnostic results, and the discharge diagnosis. I instructed the patient on outpatient management of their condition. I discussed the need for outpatient follow-up with a primary care physician. I informed the patient on return precautions, including the need to return to the ED if symptoms do not improve, worsen, or if there are any questions or concerns that arise at home. The patient was discharged in stable condition . Co-signature as Attending Physician, Hiro Frost DO. Signatures: Dispatcher [facility] Christine Landaverde RN RN kj2 ZOË VALENTINE RN RN dd2 Hiro Frost, DO DO tt7 Corrections: (The following items were deleted from the chart) 09/01 22:42 22:42 Angio Aorta For Dissection+CT.RAD.BRZ ordered. EDMS EDMS 22: 22:42 Cortisol+C.LAB.BRZ ordered. EDMS EDMS : 22:42 THYROID STIMULAT HORMONE+C.LAB.BRZ ordered. EDMS EDMS : 22:42 T4 FREE+C.LAB.BRZ ordered. EDMS EDMS
--- NOTE | 2025-09-02 02:49 | ER ---
Nurse's Notes [facility] Name: Sera Min Age: 75 yrs Sex: Female : 1950 Arrival Date: 09/01/2025 Time: 20:32 Bed 19 Private MD: Eder Coyle Diagnosis: Nausea with vomiting, unspecified;Abdominal pain, Generalized Presentation: 09/01 20:42 Chief complaint: Patient states: PAIN ALL OVER MY ABDOMEN, PAIN RADIATES TO THE BACK, dd2 AND SWEATY. PAIN 09/08. Coronavirus screen: Client denies travel out of the [place] in the last 14 days. Ebola Screen: No symptoms or risks identified at this time. Initial Sepsis Screen: Does the patient meet any 2 criteria? No. Patient's initial sepsis screen is negative. Does the patient have a suspected source of infection? No. Patient's initial sepsis screen is negative. Risk Assessment: Do you want to hurt yourself or someone else? Patient reports no desire to harm self or others. Onset of symptoms was September 01, 2025. 20:42 Method Of Arrival: Wheelchair dd2 20:42 Acuity: LUCIANA 3 dd2 Triage Assessment: 20:45 General: Appears uncomfortable, Behavior is cooperative, anxious. Pain: Complains of dd2 pain in abdomen Pain currently is 10 out of 10 on a pain scale. Neuro: Level of Consciousness is awake, alert, obeys commands, Oriented to person, place, time, situation. Cardiovascular: Capillary refill < 3 seconds Patient's skin is warm and dry. Respiratory: Airway is patent Respiratory effort is even, unlabored, Respiratory pattern is regular, symmetrical. GI: Abdomen is round obese, Reports lower abdominal pain, upper abdominal pain. : No signs and/or symptoms were reported regarding the genitourinary system. Derm: Skin is diaphoretic, Skin is normal. Historical: - Allergies: 20:45 Codeine; dd2 - PMHx: 20:45 Hypercholesterolemia; Hypertension; dd2 20:47 Kidney stone; dd2 - PSHx: 20:45 heart cath x 2; CARDIAC STENTS (Unknown); dd2 - Immunization history:: Adult Immunizations up to date. - Infectious Disease History:: Denies. - Social history:: Smoking status: Patient denies any tobacco usage or history of. Screenin:03 [facility] ED Fall Risk Assessment (Adult) History of falling in the last 3 months, kj2 including since admission No falls in past 3 months (0 pts) Confusion or Disorientation No (0 pts) Intoxicated or Sedated No (0 pts) Impaired Gait No (0 pts) Mobility Assist Device Used No (0 pt) Altered Elimination No (0 pt) Score/Fall Risk Level 0 - 2 = Low Risk Maintained a safe environment, Hourly rounding (assess needs \T\ fall precautionary measures) done. Abuse screen: Denies threats or abuse. Denies injuries from another. Nutritional screening: No deficits noted. Tuberculosis screening: No symptoms or risk factors identified. Assessment: 21:05 General: Appears uncomfortable, Behavior is cooperative. Pain: Complains of pain in kj2 abdomen Pain currently is 8 out of 10 on a pain scale. Neuro: Level of Consciousness is awake, Oriented to person, place. Cardiovascular:. Respiratory: Airway is patent Respiratory effort is even, unlabored. GI: Reports lower abdominal pain, nausea. GI: Reports upper abdominal pain. : No signs and/or symptoms were reported regarding the genitourinary system. 21:05 GI: Reports lower abdominal pain, upper abdominal pain, nausea. kj2 21:45 Reassessment: Patient appears in no apparent distress at this time. Patient and/or kj2 family updated on plan of care and expected duration. Pain level reassessed. 22:22 Reassessment: Patient and/or family updated on plan of care and expected duration. Pain kj2 level reassessed. patient is diaphoretic,provider notified. 23:24 Reassessment: Patient appears in no apparent distress at this time. Patient and/or kj2 family updated on plan of care and expected duration. Pain level reassessed. 23:47 Reassessment: Patient appears in no apparent distress at this time. returned from CT. kj2 23:59 Reassessment: patient O2 sats began to fluctuate between 90-92 on room air, RN placed kj2 patient on 2L O2 via n/c. 09/02 00:11 Reassessment: patient placed on bedpan. kj2 01:41 Reassessment: Patient is alert, oriented x 3, equal unlabored respirations, skin tb4 warm/dry/pink. Patient states feeling better. General: Appears in no apparent distress. comfortable, Behavior is calm, cooperative. Pain: Complains of pain in abdomen Pain does not radiate. Pain currently is 6 out of 10 on a pain scale. Quality of pain is described as crampy, Pain began gradually, Is continuous. Neuro: Level of Consciousness is awake, alert, obeys commands, Oriented to person, place, [employer] are equal bilaterally Moves all extremities. Full function Weakness in bilateral leg(s) Gait is steady, Speech is normal, Facial symmetry appears normal. Cardiovascular: Patient's skin is warm and dry. Respiratory: Airway is patent Respiratory effort is even, unlabored, Respiratory pattern is regular, symmetrical. GI: Abdomen is round obese. : No deficits noted. No signs and/or symptoms were reported regarding the genitourinary system. EENT: No deficits noted. No signs and/or symptoms were reported regarding the EENT system. Derm: No deficits noted. No signs and/or symptoms reported regarding the dermatologic system. Skin is intact, is healthy with good turgor, Skin is dry, Skin is normal. Musculoskeletal: No deficits noted. No signs and/or symptoms reported regarding the musculoskeletal system. Vital Signs: 09/01 20:42 BP 160 / 76; Pulse 66; Resp 18 S; Pulse Ox 100% on R/A; Weight 104.33 kg; Height 5 ft. dd2 2 in. ; Pain 09/08; 20:50 Temp 96.2(A); ha1 22:00 BP 163 / 72; Pulse 69; Resp 20; Pulse Ox 98% on R/A; kj2 23:00 BP 168 / 70; Pulse 59; Resp 20; Pulse Ox 95% on R/A; kj2 09/02 00:12 BP 167 / 67; Pulse 74; Resp 18; Pulse Ox 98% on 2 lpm NC; kj2 01:14 BP 182 / 81; Pulse 67; Resp 18; Pulse Ox 98% on 2 lpm NC; ss12 02:16 BP 173 / 71; Pulse 59; Resp 17; Pulse Ox 98% on 2 lpm NC; tb4 03:31 BP 179 / 76; Pulse 68; Resp 18; Pulse Ox 97% on 2 lpm NC; tb4 09/01 20:42 Body Mass Index 42.07 (104.33 kg, 157.48 cm) dd2 09/01 20:42 Pain Scale: Adult dd2 ED Course: 09/01 20:36 Patient arrived in ED. gm2 20:36 Eder Coyle MD is Private Physician. gm2 20:44 Hiro Frost DO is Attending Physician. tt7 20:45 Triage completed. dd2 20:49 Christine Landaverde, OBI is Primary Nurse. kj2 21:03 Patient has correct armband on for positive identification. Bed in low position. Call kj2 light in reach. Adult w/ patient. Provided Education on: call light. 21:03 EKG done, by ED staff, reviewed by Hiro Frost DO. oe 21:04 Inserted saline lock: 20 gauge in left antecubital area, using aseptic technique. Blood ha1 collected. Flushed with 10 mL NS. 21:56 XRAY Chest (1 view) In Process Unspecified. EDMS 22:01 CT Abd/Pelvis - IV Contrast Only In Process Unspecified. EDMS 22:56 US Abdomen Limited In Process Unspecified. EDMS 09/02 00:02 CT Aorta for Dissection In Process Unspecified. EDMS 00:19 UA Rfx Jose Cult if indicated Sent. kj2 00:29 Report given to OBI Barbosa. kj2 01:41 No provider procedures requiring assistance completed. tb4 01:56 Troponin High Sensitivity Sent. tb4 02:48 Eder Coyle MD is Referral Physician. tt7 03:32 Arm band placed on left wrist. tb4 03:32 IV discontinued, intact, bleeding controlled, No redness/swelling at site. Pressure tb4 dressing applied. Administered Medications: 09/01 21:40 Drug: HYDROmorphone IVP 0.5 mg IVP once Route: IVP; Site: left antecubital; kj2 23:46 Follow up: Response: No adverse reaction kj2 21:40 Drug: Ondansetron IVP 4 mg IVP once; over 2 minutes Route: IVP; Site: left antecubital; kj2 23:46 Follow up: Response: No adverse reaction kj2 22:21 Drug: Droperidol IVP 1.25 mg IVP once Route: IVP; Site: left antecubital; kj2 23:46 Follow up: Response: No adverse reaction kj2 23:13 Drug: Ondansetron IVP 4 mg IVP once; over 2 minutes Route: IVP; Site: left antecubital; kj2 23:25 Follow up: Response: No adverse reaction kj2 Medication: 21:04 VIS not applicable for this client. kj2 Point of Care Testing: Blood Glucose: 20:54 Blood Glucose: 134 mg/dL; kj2 Ranges: Outcome: 09/02 02:48 Discharge ordered by . tt7 03:32 Discharged to home ambulatory, tb4 03:32 Condition: stable 03:32 Discharge instructions given to patient, Instructed on discharge instructions, follow up and referral plans. Demonstrated understanding of instructions, follow-up care, medications, Prescriptions given X 1, 03:40 Patient left the ED. tb4 Signatures: Dispatcher [employer] EDMS Mikhail Grey Heidy RN RN [email or web address] Regina Lutz gm2 Christine Landaverde RN RN kj2 ZOË VALENTINE RN RN dd2 Chelsey Eldridge RN RN tb4 Aleta River RN RN ss12 Hiro Frost DO DO tt7
[2025-09-02 04:35] VITALS: TEMP 96.2
[2025-09-02 04:42] VITALS: BP 179/76; O2SAT 97
--- NOTE | 2025-09-02 09:53 | RAD REPORT ---
EXAM: US Abdomen Limited, Gallbladder CLINICAL HISTORY: The patient is 75 years old and is Female; ABD PAIN TECHNIQUE: Real-time ultrasound of the right upper quadrant with image documentation. COMPARISON: No relevant prior studies available. FINDINGS: GALLBLADDER: Sludge is present within the gallbladder. There is no gallbladder wall thickening or pericholecystic fluid. There is a negative sonographic Nicolas sign. COMMON BILE DUCT: Unremarkable as visualized. No stones. No dilation. IMPRESSION: Gallbladder sludge. Electronically signed by: Nitza Tran MD 09/01/2025 11:28 PM CDT Due to temporary technical issues with the PACS/[employer] reporting system, reports are being raoul d by the in-house radiologist without review as a courtesy to ensure prompt reporting the interpreting radiologist is fully responsible for the content of the report. Transcribed Date/Time: 09/02/2025 9:53 AM
== END 2025-09-02 03:40 | disposition home or self-care (01) ==
LOC: ER 20:32
DX: R11.2 Nausea with vomiting, unspecified (principal); R10.84 Generalized abdominal pain; Z87.442 Personal history of urinary calculi
CPT/HCPCS: 93005; 85025; 36415; 82947; 84443; 81003; 84484 ×2; 84439; 83690; 80053; 82533; 83880; 71275; 74175; 74177; 71045; 76705; 96375; 96374; 99284; Q9967 ×2; J1171; J2405 ×2; J1790